=== PATIENT | male | born 1945 | race African-American/Black ===

== ENCOUNTER 2019-01-29 14:24 | Inpatient (IN) | payer MEDICARE ==
[~2019-01-29] VITALS: Ht 180.3 cm; Wt 72.3 kg
[~2019-01-29 14:24] MED LIST: ASPI81TA39 PO; CARV3 PO; FURO40 PO; LISI-660 PO; RISP.5 PO; SIMV-260 PO
[2019-01-29] MEDS ORDERED: FURO20 PO (15:04)
[2019-01-29] MEDS ORDERED: CARV6 PO (15:04)
[2019-01-29] MEDS ORDERED: ASPI-1182 PO (15:04)
[2019-01-29] MEDS ORDERED: RISP.5 PO (15:12)
[2019-01-29 15:27] LABS: GLUCOSE,POINT OF CARE 80 MG/DL (70-110)
[2019-01-29 17:31] LABS: BASOPHILS % (AUTO) 0.5 % (0.0-2.0); EOSINOPHILS % (AUTO) 0 % (1.0-6.0); HEMATOCRIT 45.5 % (41-53); HEMOGLOBIN 15.1 g/dL (13.5-17.5); LYMPHOCYTES # (AUTO) 0.9 K/uL (1.0-4.8); LYMPHOCYTES % (AUTO) 10.1 % (22.0-44.0); MEAN CORPUSCULAR HEMOGLOBIN 30.6 pg (26.0-34.0); MEAN CORPUSCULAR HGB CONC 33.1 G/dL (31.0-37.0); MEAN CORPUSCULAR VOLUME 93 fL (80-100); MONOCYTES # (AUTO) 0.7 K/uL (0.1-1.0); MONOCYTES % (AUTO) 7.7 % (2.0-9.0); NEUTROPHILS # (AUTO) 7.2 K/uL (1.8-7.7); NEUTROPHILS % (AUTO) 81.7 % (40.0-70.0); PLATELET COUNT (AUTO) 182 K/uL (150-450); RED BLOOD CELL COUNT(AUTO) 4.93 MIL/uL (4.50-5.90); RED CELL DISTRIBUTION WIDTH 17.4 % (11.5-14.5)
[2019-01-29 17:39] LABS: INR 1.6 (0.9-1.1); PROTHROMBIN TIME 16.8 SEC (9.4-11.6)
[2019-01-29 17:41] LABS: ANION GAP 9 mmol/L (8-16); CALCIUM, TOTAL 9.6 mg/dL (8.8-10.5); CARBON DIOXIDE 23 mmol/L (22-29); CHLORIDE 110 mmol/L (98-107); CREATININE 0.98 mg/dL (0.60-1.30); GLUCOSE,RANDOM 96 mg/dL (70-110); SODIUM SERUM 142 mmol/L (136-145); UREA NITROGEN, BLOOD 20 mg/dL (7-18)
[2019-01-29 17:42] LABS: GLOMERULAR FILTR. RATE CALC > 60 mL/min (>60)
[2019-01-29 17:48] LABS: TROPONIN I < 0.02 ng/mL (0.00-0.05)
[2019-01-29 17:50] LABS: ALANINE AMINOTRANSFERASE 22 U/L (12-78); ALBUMIN 3.4 g/dL (3.4-5.0); ALKALINE PHOSPHATASE 98 U/L (46-116); ASPARTATE AMINOTRANSFERASE 26 U/L (15-37); BILIRUBIN,TOTAL 1.6 mg/dL (0.1-1.0); CREATINE KINASE, TOTAL ONLY 58 U/L (39-308); TOTAL PROTEIN, SERUM 7.1 g/dL (6.4-8.2)
[2019-01-29 17:53] LABS: B-TYPE NATRIURETIC PEPTIDE 2770 pg/mL (0-100)
[2019-01-29 17:55] LABS: AMMONIA 13 umol/L (11-32)
[2019-01-29 18:02] LABS: APPEARANCE,URINE CLEAR (CLEAR); GLUCOSE, URINE (UA) NEGATIVE (NEGATIVE); KETONES,URINE NEGATIVE (NEGATIVE); LEUKOCYTE ESTERASE ,URINE TRACE (NEGATIVE); NITRATE,URINE NEGATIVE (NEGATIVE); OCCULT BLOOD,URINE SMALL (NEGATIVE); PROTEIN,URINE SEE CONFIRM (NEGATIVE)
[2019-01-29 18:15] LABS: AMPHET/METH SCREEN,URINE NEGATIVE (NEGATIVE); BARBITURATE SCREEN, URINE NEGATIVE (NEGATIVE); BENZODIAZEPINES SCREEN,URINE NEGATIVE (NEGATIVE); CANNABINOID SCREEN,URINE POSITIVE (NEGATIVE); COCAINE SCREEN,URINE NEGATIVE (NEGATIVE); METHADONE SCREEN, URINE NEGATIVE (NEGATIVE); OPIATE SCREEN,URINE NEGATIVE (NEGATIVE)
[2019-01-29] MEDS ORDERED: NITROGLYCERIN 2% (1 GM=INCH) PACKET TP ONE (18:15)
[2019-01-29] MEDS ORDERED: FUROSEMIDE 40 MG/4 ML VIAL IVP ONE (18:15)
[2019-01-29] MEDS ORDERED: ASPIRIN 81 MG CHEWABLE TABLET PO ONE (18:15)
[2019-01-29 18:16] LABS: PHENCYCLIDINE SCREEN,URINE NEGATIVE (NEGATIVE)
[2019-01-29 19:01] LABS: BILIRUBIN,URINE PRELIM. POSITIVE (NEGATIVE)
[2019-01-29 19:02] LABS: SULFOSALICYLIC ACID,URINE 2+ (Negative)
[2019-01-29 19:03] LABS: BACTERIA,URINE Few /HPF (None Seen); RBC,URINE 0-2 /HPF (0-2); WBC,URINE 0-2 /HPF (0-5)
[2019-01-29 19:04] LABS: MUCUS,URINE Many LPF (None Seen); SQUAMOUS EPITHELIAL CELL,UR Few /LPF (None Seen)
[2019-01-29] MEDS ORDERED: 0.9% SODIUM CHLORIDE 10 ML SYRINGE IVP PRN (19:30)
[2019-01-29] MEDS ORDERED: ACETAMINOPHEN 325 MG TABLET PO PRN (19:30)
[2019-01-29 21:03] VITALS: BP 122/72
[2019-01-29] MEDS: IPRATROPIUM BROMIDE 0.5 MG/2.5 ML NEB SOLUTION NEB PRN (21:57)
[2019-01-29] MEDS: ALBUTEROL SULFATE 2.5 MG/0.5 ML NEB SOLUTION NEB PRN (21:57)
[2019-01-30 00:02] VITALS: BP 136/63
[2019-01-30] MEDS ORDERED: MAGNESIUM HYDROXIDE SUSPENSION 30 ML UDCUP PO PRN (02:45)
[2019-01-30] MEDS ORDERED: 0.9% SODIUM CHLORIDE 10 ML SYRINGE IVP PRN (02:45)
[2019-01-30] MEDS ORDERED: ONDANSETRON HCL 4 MG/2 ML VIAL IVP PRN (02:45)
[2019-01-30] MEDS ORDERED: OxyCODONE HCL/ACETAMINOPHEN 5-325 MG TABLET PO PRN ×2 (02:45)
[2019-01-30] MEDS ORDERED: ACETAMINOPHEN 325 MG TABLET PO PRN (02:45)
[2019-01-30 04:54] VITALS: BP 102/51
[2019-01-30 06:47] LABS: BASOPHILS % (AUTO) 0.3 % (0.0-2.0); EOSINOPHILS % (AUTO) 0.1 % (1.0-6.0); HEMATOCRIT 42.9 % (41-53); HEMOGLOBIN 14.2 g/dL (13.5-17.5); LYMPHOCYTES # (AUTO) 1.1 K/uL (1.0-4.8); LYMPHOCYTES % (AUTO) 15.7 % (22.0-44.0); MEAN CORPUSCULAR HEMOGLOBIN 30.9 pg (26.0-34.0); MEAN CORPUSCULAR HGB CONC 33.2 G/dL (31.0-37.0); MEAN CORPUSCULAR VOLUME 93 fL (80-100); MONOCYTES # (AUTO) 0.8 K/uL (0.1-1.0); MONOCYTES % (AUTO) 10.9 % (2.0-9.0); NEUTROPHILS # (AUTO) 5.2 K/uL (1.8-7.7); PLATELET COUNT (AUTO) 168 K/uL (150-450); RED BLOOD CELL COUNT(AUTO) 4.61 MIL/uL (4.50-5.90); RED CELL DISTRIBUTION WIDTH 17.1 % (11.5-14.5)
[2019-01-30 07:35] LABS: B-TYPE NATRIURETIC PEPTIDE 2620 pg/mL (0-100)
[2019-01-30 07:45] VITALS: BP 117/66
[2019-01-30] MEDS: FUROSEMIDE 40 MG/4 ML VIAL IVP SCH (08:34)
[2019-01-30] MEDS: HEPARIN SODIUM,PORCINE 5,000 UNITS/ML VIAL SQ SCH ×2 (08:35→20:38)
[2019-01-30] MEDS: CARVEDILOL 6.25 MG TABLET PO SCH ×2 (08:35→20:38)
[2019-01-30] MEDS: ASPIRIN 81 MG EC TABLET PO SCH (08:36)
[2019-01-30] MEDS: DOCUSATE SODIUM 100 MG CAPSULE PO SCH ×2 (08:36→20:38)
[2019-01-30] MEDS: RisperiDONE 0.5 MG TABLET PO SCH (08:46)
[2019-01-30] MEDS: IPRATROPIUM BROMIDE 0.5 MG/2.5 ML NEB SOLUTION NEB PRN ×3 (09:12→20:21)
[2019-01-30] MEDS: ALBUTEROL SULFATE 2.5 MG/0.5 ML NEB SOLUTION NEB PRN ×3 (09:12→20:21)
[2019-01-30 10:08] LABS: ALANINE AMINOTRANSFERASE 19 U/L (12-78); ALBUMIN 3.1 g/dL (3.4-5.0); ALKALINE PHOSPHATASE 88 U/L (46-116); ANION GAP 18 mmol/L (8-16); ASPARTATE AMINOTRANSFERASE 25 U/L (15-37); BILIRUBIN,TOTAL 1.3 mg/dL (0.1-1.0); CALCIUM, TOTAL 9.2 mg/dL (8.8-10.5); CARBON DIOXIDE 20 mmol/L (22-29); CHLORIDE 107 mmol/L (98-107); CREATININE 1.04 mg/dL (0.60-1.30); GLUCOSE,RANDOM 105 mg/dL (70-110); PHOSPHORUS 4.4 mg/dL (2.5-4.9); POTASSIUM 4.4 mmol/L (3.5-5.1); SODIUM SERUM 145 mmol/L (136-145); TOTAL PROTEIN, SERUM 6.6 g/dL (6.4-8.2); UREA NITROGEN, BLOOD 21 mg/dL (7-18)
[2019-01-30 10:10] LABS: GLOMERULAR FILTR. RATE CALC > 60 mL/min (>60)
[2019-01-30] MEDS ORDERED: GuaiFENesin/D-METHORPHAN [SUGAR-FREE] 200-20MG/10 ML SYRUP UDCUP PO PRN (14:45)
[2019-01-30 15:54] VITALS: BP 120/71
[2019-01-30 19:41] VITALS: BP 115/88
[2019-01-30 23:24] VITALS: BP 110/56
[2019-01-31 05:11] VITALS: BP 107/60
[2019-01-31 06:32] LABS: BASOPHILS % (AUTO) 0.6 % (0.0-2.0); EOSINOPHILS % (AUTO) 0.5 % (1.0-6.0); HEMATOCRIT 39.2 % (41-53); LYMPHOCYTES # (AUTO) 1.1 K/uL (1.0-4.8); LYMPHOCYTES % (AUTO) 22.2 % (22.0-44.0); MEAN CORPUSCULAR HEMOGLOBIN 30.8 pg (26.0-34.0); MEAN CORPUSCULAR HGB CONC 33.1 G/dL (31.0-37.0); MEAN CORPUSCULAR VOLUME 93 fL (80-100); MONOCYTES # (AUTO) 0.6 K/uL (0.1-1.0); MONOCYTES % (AUTO) 13.1 % (2.0-9.0); NEUTROPHILS % (AUTO) 63.6 % (40.0-70.0); PLATELET COUNT (AUTO) 176 K/uL (150-450); RED BLOOD CELL COUNT(AUTO) 4.22 MIL/uL (4.50-5.90)
[2019-01-31 06:44] LABS: ANION GAP 3 mmol/L (8-16); CALCIUM, TOTAL 8.3 mg/dL (8.8-10.5); CARBON DIOXIDE 29 mmol/L (22-29); CHLORIDE 107 mmol/L (98-107); CREATININE 1.04 mg/dL (0.60-1.30); GLUCOSE,RANDOM 83 mg/dL (70-110); POTASSIUM 4.1 mmol/L (3.5-5.1); SODIUM SERUM 139 mmol/L (136-145); UREA NITROGEN, BLOOD 21 mg/dL (7-18)
[2019-01-31 06:45] LABS: GLOMERULAR FILTR. RATE CALC > 60 mL/min (>60)
[2019-01-31 07:53] VITALS: BP 93/66
[2019-01-31] MEDS: FUROSEMIDE 40 MG/4 ML VIAL IVP SCH (08:18)
[2019-01-31] MEDS: HEPARIN SODIUM,PORCINE 5,000 UNITS/ML VIAL SQ SCH ×2 (08:18→20:48)
[2019-01-31] MEDS: RisperiDONE 0.5 MG TABLET PO SCH (08:19)
[2019-01-31] MEDS: CARVEDILOL 6.25 MG TABLET PO SCH ×2 (08:19→20:48)
[2019-01-31] MEDS: ASPIRIN 81 MG EC TABLET PO SCH (08:19)
[2019-01-31] MEDS: DOCUSATE SODIUM 100 MG CAPSULE PO SCH ×2 (08:19→20:48)
[2019-01-31] MEDS: NICOTINE 14 MG/24 HOUR PATCH TD SCH (08:20)
[2019-01-31 12:01] VITALS: BP 116/73
[2019-01-31 14:05] LABS: ABG A-A DIFF O2 37.1 mmHg (10-20.0); ABG BASE EXCESS 6.5 mmol/L (-2.0-3.0); ABG CARBOXYHEMOGLOBIN 0.9 % (0.0-1.5); ABG HCO3 29.2 mmol/L (22.0-26.0); ABG METHEMOGLOBIN 0.3 % (0.0-1.5); ABG OXYGEN CONTENT 18.2 mL/dL (15.0-23.0); ABG OXYGEN SATURATION 97.9 % (95.0-98.0); ABG OXYHEMOGLOBIN 96.7 % (94.0-100.0); ABG PCO2 53 mmHg (35-45); ABG PH 7.391 (7.35-7.450); ABG TOTAL HEMOGLOBIN 13.3 G/dL (12.0-18.0); PO2, ARTERIAL BG 100.2 mmHg (75.0-83.0); SOURCE, BLOOD GAS ARTERIAL; TEMPERATURE, FAHRENHEIT, BG 97.9 FAHREN (96.0-98.6)
[2019-01-31 14:07] LABS: O2 DEVICE,BLOOD GAS CANNULA (ROOM AIR); SITE, BLOOD GAS LFT RADIAL
[2019-01-31 15:12] VITALS: BP 122/72
[2019-01-31] MEDS: LOSARTAN POTASSIUM 25 MG TABLET PO SCH ×2 (15:48→20:48)
[2019-01-31 20:29] VITALS: BP 107/65
[2019-01-31 23:37] VITALS: BP 115/63
[2019-02-01 04:28] VITALS: BP 105/59
[2019-02-01 06:17] LABS: BASOPHILS % (AUTO) 0.7 % (0.0-2.0); EOSINOPHILS % (AUTO) 0.8 % (1.0-6.0); HEMATOCRIT 37.8 % (41-53); HEMOGLOBIN 12.1 g/dL (13.5-17.5); LYMPHOCYTES # (AUTO) 0.9 K/uL (1.0-4.8); LYMPHOCYTES % (AUTO) 25.7 % (22.0-44.0); MEAN CORPUSCULAR HGB CONC 32.1 G/dL (31.0-37.0); MEAN CORPUSCULAR VOLUME 93 fL (80-100); MONOCYTES # (AUTO) 0.6 K/uL (0.1-1.0); MONOCYTES % (AUTO) 16.2 % (2.0-9.0); NEUTROPHILS % (AUTO) 56.6 % (40.0-70.0); PLATELET COUNT (AUTO) 187 K/uL (150-450); RED BLOOD CELL COUNT(AUTO) 4.05 MIL/uL (4.50-5.90); RED CELL DISTRIBUTION WIDTH 16.7 % (11.5-14.5)
[2019-02-01 06:43] LABS: ALANINE AMINOTRANSFERASE 27 U/L (12-78); ALBUMIN 2.7 g/dL (3.4-5.0); ALKALINE PHOSPHATASE 85 U/L (46-116); ANION GAP 5 mmol/L (8-16); ASPARTATE AMINOTRANSFERASE 23 U/L (15-37); BILIRUBIN,TOTAL 0.6 mg/dL (0.1-1.0); CALCIUM, TOTAL 8.3 mg/dL (8.8-10.5); CARBON DIOXIDE 31 mmol/L (22-29); CHLORIDE 105 mmol/L (98-107); CREATININE 0.77 mg/dL (0.60-1.30); GLUCOSE,RANDOM 71 mg/dL (70-110); POTASSIUM 4.5 mmol/L (3.5-5.1); SODIUM SERUM 141 mmol/L (136-145); TOTAL PROTEIN, SERUM 5.7 g/dL (6.4-8.2); UREA NITROGEN, BLOOD 19 mg/dL (7-18)
[2019-02-01 06:44] LABS: GLOMERULAR FILTR. RATE CALC > 60 mL/min (>60)
[2019-02-01 07:45] VITALS: BP 114/74
[2019-02-01] MEDS: CARVEDILOL 6.25 MG TABLET PO SCH ×2 (09:00→20:09)
[2019-02-01] MEDS: LOSARTAN POTASSIUM 25 MG TABLET PO SCH ×2 (09:00→20:09)
[2019-02-01] MEDS: NICOTINE 14 MG/24 HOUR PATCH TD SCH (09:19)
[2019-02-01] MEDS: FUROSEMIDE 40 MG/4 ML VIAL IVP SCH ×2 (09:19→20:09)
[2019-02-01] MEDS: HEPARIN SODIUM,PORCINE 5,000 UNITS/ML VIAL SQ SCH ×2 (09:20→20:09)
[2019-02-01] MEDS: ASPIRIN 81 MG EC TABLET PO SCH (09:20)
[2019-02-01] MEDS: DOCUSATE SODIUM 100 MG CAPSULE PO SCH ×2 (09:20→20:09)
[2019-02-01 11:16] VITALS: BP 123/71
[2019-02-01 16:06] VITALS: BP 124/54
[2019-02-01 20:13] VITALS: BP 122/79
[2019-02-01 23:05] VITALS: BP 115/61
[2019-02-02 03:21] VITALS: BP 118/64
[2019-02-02 07:11] LABS: EOSINOPHILS % (AUTO) 0.9 % (1.0-6.0); HEMATOCRIT 38.4 % (41-53); HEMOGLOBIN 12.8 g/dL (13.5-17.5); LYMPHOCYTES # (AUTO) 0.8 K/uL (1.0-4.8); LYMPHOCYTES % (AUTO) 20.7 % (22.0-44.0); MEAN CORPUSCULAR HEMOGLOBIN 30.9 pg (26.0-34.0); MEAN CORPUSCULAR HGB CONC 33.4 G/dL (31.0-37.0); MEAN CORPUSCULAR VOLUME 93 fL (80-100); MONOCYTES # (AUTO) 0.6 K/uL (0.1-1.0); MONOCYTES % (AUTO) 15.8 % (2.0-9.0); NEUTROPHILS # (AUTO) 2.4 K/uL (1.8-7.7); NEUTROPHILS % (AUTO) 61.6 % (40.0-70.0); PLATELET COUNT (AUTO) 197 K/uL (150-450); RED BLOOD CELL COUNT(AUTO) 4.14 MIL/uL (4.50-5.90); RED CELL DISTRIBUTION WIDTH 16.7 % (11.5-14.5)
[2019-02-02 07:29] VITALS: BP 122/66
[2019-02-02 07:37] LABS: ALANINE AMINOTRANSFERASE 21 U/L (12-78); ALBUMIN 2.8 g/dL (3.4-5.0); ALKALINE PHOSPHATASE 87 U/L (46-116); ANION GAP 3 mmol/L (8-16); ASPARTATE AMINOTRANSFERASE 23 U/L (15-37); BILIRUBIN,TOTAL 0.6 mg/dL (0.1-1.0); CALCIUM, TOTAL 8.2 mg/dL (8.8-10.5); CARBON DIOXIDE 36 mmol/L (22-29); CHLORIDE 103 mmol/L (98-107); CREATININE 0.98 mg/dL (0.60-1.30); GLUCOSE,RANDOM 64 mg/dL (70-110); SODIUM SERUM 142 mmol/L (136-145); TOTAL PROTEIN, SERUM 6.2 g/dL (6.4-8.2); UREA NITROGEN, BLOOD 20 mg/dL (7-18)
[2019-02-02 07:43] LABS: GLOMERULAR FILTR. RATE CALC > 60 mL/min (>60)
[2019-02-02] MEDS: FUROSEMIDE 40 MG/4 ML VIAL IVP SCH (08:28)
[2019-02-02] MEDS: LOSARTAN POTASSIUM 25 MG TABLET PO SCH (08:29)
[2019-02-02] MEDS: CARVEDILOL 6.25 MG TABLET PO SCH ×2 (08:29→20:15)
[2019-02-02] MEDS: HEPARIN SODIUM,PORCINE 5,000 UNITS/ML VIAL SQ SCH ×2 (08:29→20:15)
[2019-02-02] MEDS: DOCUSATE SODIUM 100 MG CAPSULE PO SCH ×2 (08:29→20:15)
[2019-02-02] MEDS: ASPIRIN 81 MG EC TABLET PO SCH (08:29)
[2019-02-02] MEDS: NICOTINE 14 MG/24 HOUR PATCH TD SCH (08:31)
[2019-02-02 10:54] VITALS: BP 124/78
[2019-02-02 15:19] VITALS: BP 128/66
[2019-02-02] MEDS: SACUBITRIL/VALSARTAN 24-26 MG TABLET PO SCH (20:15)
[2019-02-02 20:19] VITALS: BP 118/68
[2019-02-03 00:21] VITALS: BP 118/67
[2019-02-03 05:21] VITALS: BP 105/69
[2019-02-03 07:26] LABS: BASOPHILS % (AUTO) 0.3 % (0.0-2.0); EOSINOPHILS % (AUTO) 1.2 % (1.0-6.0); HEMATOCRIT 40.5 % (41-53); HEMOGLOBIN 13.7 g/dL (13.5-17.5); LYMPHOCYTES % (AUTO) 27.2 % (22.0-44.0); MEAN CORPUSCULAR HEMOGLOBIN 30.8 pg (26.0-34.0); MEAN CORPUSCULAR HGB CONC 33.7 G/dL (31.0-37.0); MEAN CORPUSCULAR VOLUME 92 fL (80-100); MONOCYTES # (AUTO) 0.6 K/uL (0.1-1.0); MONOCYTES % (AUTO) 16.1 % (2.0-9.0); NEUTROPHILS # (AUTO) 2.1 K/uL (1.8-7.7); NEUTROPHILS % (AUTO) 55.2 % (40.0-70.0); PLATELET COUNT (AUTO) 226 K/uL (150-450); RED BLOOD CELL COUNT(AUTO) 4.43 MIL/uL (4.50-5.90); RED CELL DISTRIBUTION WIDTH 16.6 % (11.5-14.5)
[2019-02-03 07:49] LABS: ALANINE AMINOTRANSFERASE 19 U/L (12-78); ALBUMIN 2.6 g/dL (3.4-5.0); ALKALINE PHOSPHATASE 89 U/L (46-116); ANION GAP 4 mmol/L (8-16); ASPARTATE AMINOTRANSFERASE 24 U/L (15-37); BILIRUBIN,TOTAL 0.9 mg/dL (0.1-1.0); CALCIUM, TOTAL 8.3 mg/dL (8.8-10.5); CARBON DIOXIDE 34 mmol/L (22-29); CHLORIDE 103 mmol/L (98-107); CREATININE 0.78 mg/dL (0.60-1.30); GLUCOSE,RANDOM 74 mg/dL (70-110); POTASSIUM 4.3 mmol/L (3.5-5.1); SODIUM SERUM 141 mmol/L (136-145); TOTAL PROTEIN, SERUM 5.6 g/dL (6.4-8.2); UREA NITROGEN, BLOOD 23 mg/dL (7-18)
[2019-02-03 07:53] LABS: GLOMERULAR FILTR. RATE CALC > 60 mL/min (>60)
[2019-02-03 08:04] VITALS: BP 116/67
[2019-02-03] MEDS: NICOTINE 14 MG/24 HOUR PATCH TD SCH (08:09)
[2019-02-03] MEDS: HEPARIN SODIUM,PORCINE 5,000 UNITS/ML VIAL SQ SCH (08:09)
[2019-02-03] MEDS: SACUBITRIL/VALSARTAN 24-26 MG TABLET PO SCH (08:10)
[2019-02-03] MEDS: CARVEDILOL 6.25 MG TABLET PO SCH (08:10)
[2019-02-03] MEDS: ASPIRIN 81 MG EC TABLET PO SCH (08:10)
[2019-02-03] MEDS: DOCUSATE SODIUM 100 MG CAPSULE PO SCH (08:10)
[2019-02-03] MEDS ORDERED: FUROSEMIDE 40 MG/4 ML VIAL IVP SCH (09:00)
[2019-02-03 11:36] VITALS: BP 107/63
[2019-02-03] MEDS ORDERED: SACU1TAB PO (13:15)
== END 2019-02-03 14:50 | disposition home or self-care (01) | DRG 291 ==
LOC: EMS 14:26 → 5S 19:30
PROVIDERS: ADMIT Internal Medicine; ATTEND Internal Medicine
PROC: 4B02XSZ Measurement of Cardiac Pacemaker, External Approach (ICD-10-PCS; principal; 2019-02-01)
DX: I50.21 Acute systolic (congestive) heart failure (principal); J96.01 Acute respiratory failure with hypoxia; G92 Toxic encephalopathy; I42.9 Cardiomyopathy, unspecified; Z95.0 Presence of cardiac pacemaker; F12.90 Cannabis use, unspecified, uncomplicated
CPT/HCPCS: 70450; 82805; 83605; 83735; 84100; 87040; 87081; 93005; 93306; 94640; G0480; J1644; J1940; J2405

== ENCOUNTER 2019-09-29 00:27 | Emergency (ER) | payer MEDICARE ==
[~2019-09-29] VITALS: Ht 180.3 cm; Wt 65.9 kg
[~2019-09-29 00:27] MED LIST changes: +ASPI-1111 PO; +CARV6 PO; +FURO20 PO; -RISP.5 PO; +RISP0.5T20 PO; +SACU1TAB PO
[2019-09-29 01:20] LABS: BASOPHILS % (AUTO) 1.3 % (0.0-2.0); EOSINOPHILS % (AUTO) 0.9 % (1.0-6.0); HEMATOCRIT 40.3 % (41-53); HEMOGLOBIN 13.5 g/dL (13.5-17.5); LYMPHOCYTES # (AUTO) 1.4 K/uL (1.0-4.8); LYMPHOCYTES % (AUTO) 20.9 % (22.0-44.0); MEAN CORPUSCULAR HEMOGLOBIN 30.5 pg (26.0-34.0); MEAN CORPUSCULAR HGB CONC 33.4 G/dL (31.0-37.0); MEAN CORPUSCULAR VOLUME 91 fL (80-100); MONOCYTES # (AUTO) 0.7 K/uL (0.1-1.0); MONOCYTES % (AUTO) 9.7 % (2.0-9.0); NEUTROPHILS # (AUTO) 4.6 K/uL (1.8-7.7); NEUTROPHILS % (AUTO) 67.2 % (40.0-70.0); PLATELET COUNT (AUTO) 249 K/uL (150-450); RED BLOOD CELL COUNT(AUTO) 4.42 MIL/uL (4.50-5.90); RED CELL DISTRIBUTION WIDTH 13.8 % (11.5-14.5)
[2019-09-29 01:29] LABS: ANION GAP 7 mmol/L (8-16); CALCIUM, TOTAL 9.6 mg/dL (8.8-10.5); CARBON DIOXIDE 29 mmol/L (22-29); CHLORIDE 100 mmol/L (98-107); CREATININE 1.03 mg/dL (0.60-1.30); GLUCOSE,RANDOM 85 mg/dL (70-110); POTASSIUM 3.3 mmol/L (3.5-5.1); SODIUM SERUM 136 mmol/L (136-145); UREA NITROGEN, BLOOD 11 mg/dL (7-18)
[2019-09-29 01:33] LABS: GLOMERULAR FILTR. RATE CALC > 60 mL/min (>60)
[2019-09-29 01:35] LABS: INR 1.3 (0.9-1.1); PROTHROMBIN TIME 13.3 SEC (9.4-11.6)
[2019-09-29 01:42] LABS: B-TYPE NATRIURETIC PEPTIDE 61 pg/mL (0-100)
[2019-09-29 01:54] LABS: ALANINE AMINOTRANSFERASE 20 U/L (12-78); ALBUMIN 3.9 g/dL (3.4-5.0); ALKALINE PHOSPHATASE 93 U/L (46-116); ASPARTATE AMINOTRANSFERASE 23 U/L (15-37); BILIRUBIN,TOTAL 0.8 mg/dL (0.1-1.0); CREATINE KINASE, TOTAL ONLY 147 U/L (39-308)
[2019-09-29] MEDS ORDERED: POTASSIUM CHLORIDE 20 MEQ ER TABLET PO ONE (02:30)
[2019-09-29 03:13] VITALS: BP 125/86
== END 2019-09-29 04:53 | disposition home or self-care (01) ==
LOC: EMS 00:28
DX: R05 Cough (principal); R50.9 Fever, unspecified; R19.7 Diarrhea, unspecified; I50.9 Heart failure, unspecified; Z79.82 Long term (current) use of aspirin; Z79.899 Other long term (current) drug therapy; Z20.828 Contact with and (suspected) exposure to other viral communicable diseases
CPT/HCPCS: 36415; 71045; 80053; 82550; 83880; 84484; 85025; 85610; 85730; 93005; 99285; G0480; U0003

== ENCOUNTER 2019-11-06 11:42 | Emergency (ER) | payer MEDICARE ==
[~2019-11-06] VITALS: Ht 175.3 cm; Wt 72.7 kg
[2019-11-06 14:39] LABS: BASOPHILS % (AUTO) 0.7 % (0.0-2.0); EOSINOPHILS % (AUTO) 0.5 % (1.0-6.0); HEMATOCRIT 42.6 % (41-53); HEMOGLOBIN 14.2 g/dL (13.5-17.5); LYMPHOCYTES # (AUTO) 1.3 K/uL (1.0-4.8); LYMPHOCYTES % (AUTO) 21.9 % (22.0-44.0); MEAN CORPUSCULAR HEMOGLOBIN 30.2 pg (26.0-34.0); MEAN CORPUSCULAR HGB CONC 33.4 G/dL (31.0-37.0); MEAN CORPUSCULAR VOLUME 90 fL (80-100); MONOCYTES # (AUTO) 0.5 K/uL (0.1-1.0); MONOCYTES % (AUTO) 7.9 % (2.0-9.0); NEUTROPHILS # (AUTO) 4.1 K/uL (1.8-7.7); PLATELET COUNT (AUTO) 222 K/uL (150-450); RED BLOOD CELL COUNT(AUTO) 4.71 MIL/uL (4.50-5.90); RED CELL DISTRIBUTION WIDTH 14.5 % (11.5-14.5)
[2019-11-06 14:49] LABS: ANION GAP 7 mmol/L (8-16); CALCIUM, TOTAL 9.6 mg/dL (8.8-10.5); CARBON DIOXIDE 30 mmol/L (22-29); CHLORIDE 100 mmol/L (98-107); CREATININE 1.28 mg/dL (0.60-1.30); GLUCOSE,RANDOM 124 mg/dL (70-110); POTASSIUM 4.1 mmol/L (3.5-5.1); SODIUM SERUM 137 mmol/L (136-145); UREA NITROGEN, BLOOD 27 mg/dL (7-18)
[2019-11-06 14:50] LABS: GLOMERULAR FILTR. RATE CALC > 60 mL/min (>60)
[2019-11-06 14:55] LABS: ALANINE AMINOTRANSFERASE 32 U/L (12-78); ALKALINE PHOSPHATASE 98 U/L (46-116); ASPARTATE AMINOTRANSFERASE 44 U/L (15-37); BILIRUBIN,TOTAL 0.8 mg/dL (0.1-1.0); TOTAL PROTEIN, SERUM 8.8 g/dL (6.4-8.2)
[2019-11-06 16:41] VITALS: BP 131/68
== END 2019-11-06 20:56 | disposition home or self-care (01) ==
LOC: EMS 11:45
DX: F25.9 Schizoaffective disorder, unspecified (principal); F17.210 Nicotine dependence, cigarettes, uncomplicated; I11.0 Hypertensive heart disease with heart failure; F12.90 Cannabis use, unspecified, uncomplicated; I50.9 Heart failure, unspecified; Z79.82 Long term (current) use of aspirin; Z79.899 Other long term (current) drug therapy
CPT/HCPCS: 36415; 71045; 80053; 85025; 93005; 99285; G0480

== ENCOUNTER 2020-03-01 01:25 | Emergency (ER) | payer MEDICARE ==
[~2020-03-01] VITALS: Ht 175.3 cm; Wt 59.1 kg
[~2020-03-01 01:25] MED LIST changes: -RISP0.5T20 PO; +RISP0.5T39 PO
[2020-03-01 04:28] VITALS: BP 131/72
[2020-03-01] MEDS ORDERED: FLUORESCEIN SODIUM 1 MG STRIP OD ONE (04:45)
[2020-03-01] MEDS ORDERED: PROPARACAINE HCL 0.5% 15 ML OPHTHALMIC SOLUTION OU ONE (04:45)
== END 2020-03-01 06:32 | disposition home or self-care (01) ==
LOC: EMS 01:28
DX: S05.92XA Unspecified injury of left eye and orbit, initial encounter (principal); S05.91XA Unspecified injury of right eye and orbit, initial encounter; F17.210 Nicotine dependence, cigarettes, uncomplicated; F12.90 Cannabis use, unspecified, uncomplicated; I50.9 Heart failure, unspecified; F41.9 Anxiety disorder, unspecified; X58.XXXA Exposure to other specified factors, initial encounter; Y93.89 Activity, other specified; Y92.89 Other specified places as the place of occurrence of the external cause; Y99.8 Other external cause status

== ENCOUNTER 2020-10-06 19:23 | Emergency (ER) | payer MEDICARE ==
[~2020-10-06] VITALS: Ht 180.3 cm; Wt 65.9 kg
[2020-10-06] MEDS ORDERED: LevETIRAcetam 500 MG TABLET PO ONE (22:45)
[2020-10-06 23:04] VITALS: BP 134/72
== END 2020-10-06 23:27 | disposition home or self-care (01) ==
LOC: EDUNIT# 19:23 → EMS 19:25
DX: G40.909 Epilepsy, unspecified, not intractable, without status epilepticus (principal); I50.9 Heart failure, unspecified; F41.9 Anxiety disorder, unspecified; F17.210 Nicotine dependence, cigarettes, uncomplicated; F12.90 Cannabis use, unspecified, uncomplicated
CPT/HCPCS: 99283

== ENCOUNTER 2020-10-09 17:44 | Emergency (ER) | payer MEDICARE ==
[~2020-10-09] VITALS: Ht 180.3 cm; Wt 65.9 kg
[2020-10-09] MEDS ORDERED: LevETIRAcetam 500 MG TABLET PO ONE (19:15)
[2020-10-09 19:19] LABS: BASOPHILS % (AUTO) 1.4 % (0.0-2.0); EOSINOPHILS % (AUTO) 2.9 % (1.0-6.0); HEMATOCRIT 37.4 % (41-53); HEMOGLOBIN 12.2 g/dL (13.5-17.5); LYMPHOCYTES # (AUTO) 1.5 K/uL (1.0-4.8); LYMPHOCYTES % (AUTO) 35.2 % (22.0-44.0); MEAN CORPUSCULAR HEMOGLOBIN 29.3 pg (26.0-34.0); MEAN CORPUSCULAR HGB CONC 32.6 G/dL (31.0-37.0); MEAN CORPUSCULAR VOLUME 90 fL (80-100); MONOCYTES # (AUTO) 0.5 K/uL (0.1-1.0); MONOCYTES % (AUTO) 12.7 % (2.0-9.0); NEUTROPHILS % (AUTO) 47.8 % (40.0-70.0); PLATELET COUNT (AUTO) 199 K/uL (150-450); RED BLOOD CELL COUNT(AUTO) 4.16 MIL/uL (4.50-5.90); RED CELL DISTRIBUTION WIDTH 16.1 % (11.5-14.5)
[2020-10-09 19:39] LABS: ANION GAP 7 mmol/L (8-16); CALCIUM, TOTAL 9.2 mg/dL (8.8-10.5); CARBON DIOXIDE 32 mmol/L (22-29); CHLORIDE 104 mmol/L (98-107); CREATININE 1.35 mg/dL (0.60-1.30); GLUCOSE,RANDOM 110 mg/dL (70-110); POTASSIUM 3.7 mmol/L (3.5-5.1); SODIUM SERUM 143 mmol/L (136-145); UREA NITROGEN, BLOOD 22 mg/dL (7-18)
[2020-10-09 19:45] LABS: GLOMERULAR FILTR. RATE CALC > 60 mL/min (>60)
[2020-10-09 19:54] LABS: ALANINE AMINOTRANSFERASE 18 U/L (12-78); ALBUMIN 3.6 g/dL (3.4-5.0); ALKALINE PHOSPHATASE 73 U/L (46-116); ASPARTATE AMINOTRANSFERASE 20 U/L (15-37); BILIRUBIN,TOTAL 0.3 mg/dL (0.1-1.0); TOTAL PROTEIN, SERUM 7.1 g/dL (6.4-8.2)
[2020-10-09 22:36] VITALS: BP 101/53
== END 2020-10-09 22:37 | disposition home or self-care (01) ==
LOC: EMS 17:46
DX: G40.909 Epilepsy, unspecified, not intractable, without status epilepticus (principal); I50.9 Heart failure, unspecified; F41.9 Anxiety disorder, unspecified; G89.29 Other chronic pain; F12.90 Cannabis use, unspecified, uncomplicated; F17.210 Nicotine dependence, cigarettes, uncomplicated; Z59.0 Homelessness; Z95.0 Presence of cardiac pacemaker
CPT/HCPCS: 36415; 70450; 80053; 85025; 99284; G0480

== ENCOUNTER 2021-02-26 12:01 | Inpatient (IN) | payer MEDICARE ==
[~2021-02-26] VITALS: Ht 180.3 cm; Wt 76.9 kg
[2021-02-26] MEDS ORDERED: CHOL-35 PO (12:17)
[2021-02-26] MEDS ORDERED: FURO80 PO (12:17)
[2021-02-26] MEDS ORDERED: CARV25 PO (12:17)
[2021-02-26] MEDS ORDERED: ATOR40TA28 PO (12:17)
[2021-02-26] MEDS ORDERED: ASPI-1450 PO (12:17)
[2021-02-26 13:17] LABS: BASOPHILS % (AUTO) 0.9 % (0.0-2.0); HEMATOCRIT 39.9 % (41-53); HEMOGLOBIN 12.7 g/dL (13.5-17.5); LYMPHOCYTES % (AUTO) 15.6 % (22.0-44.0); MEAN CORPUSCULAR HEMOGLOBIN 28.9 pg (26.0-34.0); MEAN CORPUSCULAR HGB CONC 31.7 G/dL (31.0-37.0); MEAN CORPUSCULAR VOLUME 91 fL (80-100); MONOCYTES # (AUTO) 0.7 K/uL (0.1-1.0); MONOCYTES % (AUTO) 9.9 % (2.0-9.0); NEUTROPHILS # (AUTO) 4.9 K/uL (1.8-7.7); NEUTROPHILS % (AUTO) 72.6 % (40.0-70.0); PLATELET COUNT (AUTO) 245 K/uL (150-450); RED BLOOD CELL COUNT(AUTO) 4.38 MIL/uL (4.50-5.90); RED CELL DISTRIBUTION WIDTH 15.5 % (11.5-14.5)
[2021-02-26 13:35] LABS: COVID AG,FIA SOURCE NASOPHARYNGEAL
[2021-02-26 13:59] LABS: INFLUENZA TYPE A NEGATIVE FOR TYPE A (NEGATIVE); INFLUENZA TYPE B NEGATIVE FOR TYPE B (NEGATIVE)
[2021-02-26] MEDS ORDERED: MAG HYDROX/AL HYDROX/SIMETH 30 ML SUSP UDCUP PO ONE (14:00)
[2021-02-26] MEDS ORDERED: ACETAMINOPHEN 500 MG TABLET PO ONE (14:00)
[2021-02-26] MEDS ORDERED: FAMOTIDINE 10 MG/ML 2 ML VIAL IVP ONE (14:00)
[2021-02-26 14:12] LABS: ANION GAP 8 mmol/L (8-16); CALCIUM, TOTAL 9.3 mg/dL (8.8-10.5); CARBON DIOXIDE 28 mmol/L (22-29); CHLORIDE 107 mmol/L (98-107); GLUCOSE,RANDOM 84 mg/dL (70-110); POTASSIUM 4.2 mmol/L (3.5-5.1); SODIUM SERUM 143 mmol/L (136-145); UREA NITROGEN, BLOOD 9 mg/dL (7-18)
[2021-02-26 14:14] LABS: GLOMERULAR FILTR. RATE CALC > 60 mL/min (>60)
[2021-02-26] MEDS ORDERED: PIPERACILLIN/TAZO 3.375 GM/D5W 50 ML IV ONE (14:15)
[2021-02-26] MEDS ORDERED: VANCOMYCIN HCL 1 GM/D5% WATER 200 ML IV ONE (14:15)
[2021-02-26] MEDS ORDERED: AZITHROMYCIN 500 MG/NS 250 ML IV ONE (14:15)
[2021-02-26 14:18] LABS: ALANINE AMINOTRANSFERASE 17 U/L (12-78); ALBUMIN 3.1 g/dL (3.4-5.0); ALKALINE PHOSPHATASE 76 U/L (46-116); ASPARTATE AMINOTRANSFERASE 23 U/L (15-37); BILIRUBIN,TOTAL 0.4 mg/dL (0.1-1.0); TOTAL PROTEIN, SERUM 6.9 g/dL (6.4-8.2)
[2021-02-26 14:20] LABS: LACTIC ACID 0.8 mmol/L (0.4-2.0)
[2021-02-26] MEDS ORDERED: IOHEXOL 350 MG/ML 150 ML VIAL ONE (14:26)
[2021-02-26] MEDS ORDERED: SODIUM CHLORIDE 0.9% 100 ML ONE (14:26)
[2021-02-26 14:29] LABS: C-REACTIVE PROTEIN QUANT 1.42 mg/dL (0.00-0.30); MAGNESIUM 1.9 mg/dL (1.80-2.40); PHOSPHORUS 3.1 mg/dL (2.5-4.9)
[2021-02-26] MEDS ORDERED: ACETAMINOPHEN 325 MG TABLET PO PRN (16:15)
[2021-02-26] MEDS ORDERED: 0.9% SODIUM CHLORIDE 10 ML SYRINGE IVP PRN (16:15)
[2021-02-26] MEDS ORDERED: ONDANSETRON HCL 4 MG/2 ML VIAL IVP PRN (16:15)
[2021-02-26 17:27] VITALS: BP 116/63
[2021-02-26 19:15] VITALS: BP 127/76
[2021-02-26] MEDS: KETOROLAC TROMETHAMINE 15 MG/ML VIAL IVP PRN (22:09)
[2021-02-26 23:45] VITALS: BP 124/64
[2021-02-27 03:40] VITALS: BP 113/60
[2021-02-27] MEDS: KETOROLAC TROMETHAMINE 15 MG/ML VIAL IVP PRN ×2 (05:36→14:41)
[2021-02-27 06:54] LABS: BASOPHILS % (AUTO) 0.8 % (0.0-2.0); EOSINOPHILS % (AUTO) 3.2 % (1.0-6.0); HEMATOCRIT 36.5 % (41-53); LYMPHOCYTES # (AUTO) 1.5 K/uL (1.0-4.8); LYMPHOCYTES % (AUTO) 26.9 % (22.0-44.0); MEAN CORPUSCULAR HEMOGLOBIN 29.5 pg (26.0-34.0); MEAN CORPUSCULAR VOLUME 90 fL (80-100); MONOCYTES # (AUTO) 0.7 K/uL (0.1-1.0); MONOCYTES % (AUTO) 12.2 % (2.0-9.0); NEUTROPHILS # (AUTO) 3.1 K/uL (1.8-7.7); NEUTROPHILS % (AUTO) 56.9 % (40.0-70.0); PLATELET COUNT (AUTO) 254 K/uL (150-450); RED BLOOD CELL COUNT(AUTO) 4.07 MIL/uL (4.50-5.90); RED CELL DISTRIBUTION WIDTH 14.7 % (11.5-14.5)
[2021-02-27 07:11] LABS: ALANINE AMINOTRANSFERASE 14 U/L (12-78); ALBUMIN 2.8 g/dL (3.4-5.0); ALKALINE PHOSPHATASE 68 U/L (46-116); ANION GAP 5 mmol/L (8-16); ASPARTATE AMINOTRANSFERASE 18 U/L (15-37); BILIRUBIN,TOTAL 0.4 mg/dL (0.1-1.0); CALCIUM, TOTAL 8.8 mg/dL (8.8-10.5); CARBON DIOXIDE 29 mmol/L (22-29); CHLORIDE 107 mmol/L (98-107); CREATININE 0.97 mg/dL (0.60-1.30); GLUCOSE,RANDOM 77 mg/dL (70-110); POTASSIUM 4.3 mmol/L (3.5-5.1); SODIUM SERUM 141 mmol/L (136-145); TOTAL PROTEIN, SERUM 6.6 g/dL (6.4-8.2); UREA NITROGEN, BLOOD 15 mg/dL (7-18)
[2021-02-27 07:12] LABS: GLOMERULAR FILTR. RATE CALC > 60 mL/min (>60)
[2021-02-27 08:22] VITALS: BP 123/66
[2021-02-27] MEDS ORDERED: CARVEDILOL 25 MG TABLET PO SCH (09:45)
[2021-02-27] MEDS: NICOTINE 21 MG/24 HOUR PATCH TD SCH (09:54)
[2021-02-27] MEDS: CHOLECALCIFEROL (VIT D3) 1,000 UNITS [25 MCG] TABLET PO SCH (09:56)
[2021-02-27] MEDS: ASPIRIN 81 MG CHEWABLE TABLET PO SCH (10:12)
[2021-02-27 11:10] VITALS: BP 124/68
[2021-02-27 15:53] VITALS: BP 112/64
[2021-02-27] MEDS ORDERED: FUROSEMIDE 40 MG/4 ML VIAL IVP ONE (16:30)
[2021-02-27] MEDS ORDERED: MAGNESIUM HYDROXIDE SUSPENSION 30 ML UDCUP PO PRN (16:45)
[2021-02-27] MEDS ORDERED: IPRATROPIUM BROMIDE 0.5 MG/2.5 ML NEB SOLUTION NEB PRN (16:45)
[2021-02-27] MEDS ORDERED: BISACODYL 10 MG RECTAL RECTAL SUPPOSITORY PR PRN (16:45)
[2021-02-27] MEDS ORDERED: ALBUTEROL SULFATE 2.5 MG/0.5 ML NEB SOLUTION NEB PRN (16:45)
[2021-02-27] MEDS ORDERED: MORPHINE SULFATE 2 MG/ML SYRINGE IVP PRN (16:45)
[2021-02-27] MEDS: CefTRIAXone 1 GM/DEXTROSE 50 ML IV SCH (17:51)
[2021-02-27] MEDS: AZITHROMYCIN 500 MG/NS 250 ML IV SCH (18:52)
[2021-02-27 19:12] VITALS: BP 112/67
[2021-02-27] MEDS: FUROSEMIDE 40 MG/4 ML VIAL IVP SCH (20:35)
[2021-02-27] MEDS: CARVEDILOL 25 MG TABLET PO SCH (20:36)
[2021-02-27] MEDS: LevETIRAcetam 500 MG in DEXTROSE 5%-WATER 100 ML IV SCH (20:37)
[2021-02-27] MEDS: HEPARIN SODIUM,PORCINE 5,000 UNITS/ML VIAL SQ SCH (23:33)
[2021-02-28] VITALS (7 sets, daily range): BP systolic 101–118; BP diastolic 57–69
[2021-02-28] MEDS: ONDANSETRON HCL 4 MG/2 ML VIAL IVP PRN ×2 (01:37→20:22)
[2021-02-28] MEDS ORDERED: ATORVASTATIN CALCIUM 40 MG TABLET PO SCH (09:00)
[2021-02-28] MEDS: CHOLECALCIFEROL (VIT D3) 1,000 UNITS [25 MCG] TABLET PO SCH (10:19)
[2021-02-28] MEDS: ASPIRIN 81 MG CHEWABLE TABLET PO SCH (10:19)
[2021-02-28] MEDS: FUROSEMIDE 40 MG/4 ML VIAL IVP SCH ×2 (10:24→20:15)
[2021-02-28] MEDS: ATORVASTATIN CALCIUM 40 MG TABLET PO SCH ×2 (10:25→20:15)
[2021-02-28] MEDS: PANTOPRAZOLE SODIUM 40 MG/VIAL IVP SCH (10:27)
[2021-02-28] MEDS: HEPARIN SODIUM,PORCINE 5,000 UNITS/ML VIAL SQ SCH ×2 (10:28→17:36)
[2021-02-28] MEDS: ACETAMINOPHEN 325 MG TABLET PO PRN (10:42)
[2021-02-28] MEDS: LevETIRAcetam 500 MG in DEXTROSE 5%-WATER 100 ML IV SCH (16:52)
[2021-02-28] MEDS: NICOTINE 21 MG/24 HOUR PATCH TD SCH (16:53)
[2021-02-28] MEDS: AZITHROMYCIN 500 MG/NS 250 ML IV SCH (17:38)
[2021-02-28] MEDS: CARVEDILOL 25 MG TABLET PO SCH ×2 (17:40→20:15)
[2021-02-28] MEDS: CefTRIAXone 1 GM/DEXTROSE 50 ML IV SCH (20:15)
[2021-02-28] MEDS: HYDROCODONE/ACETAMINOPHEN 5-325 MG TABLET PO PRN (20:15)
[2021-02-28] MEDS: ZOLPIDEM TARTRATE 5 MG TABLET PO PRN (21:19)
[2021-03-01] MEDS: HEPARIN SODIUM,PORCINE 5,000 UNITS/ML VIAL SQ SCH ×4 (01:01→23:09)
[2021-03-01 03:59] VITALS: BP 105/62
[2021-03-01] MEDS: LevETIRAcetam 500 MG in DEXTROSE 5%-WATER 100 ML IV SCH ×2 (04:53→15:52)
[2021-03-01 08:00] VITALS: BP 129/67
[2021-03-01] MEDS: CARVEDILOL 25 MG TABLET PO SCH ×2 (08:48→20:22)
[2021-03-01] MEDS: NICOTINE 21 MG/24 HOUR PATCH TD SCH (08:49)
[2021-03-01] MEDS: CHOLECALCIFEROL (VIT D3) 1,000 UNITS [25 MCG] TABLET PO SCH (08:49)
[2021-03-01] MEDS: PANTOPRAZOLE SODIUM 40 MG/VIAL IVP SCH (08:50)
[2021-03-01] MEDS: FUROSEMIDE 40 MG/4 ML VIAL IVP SCH ×2 (08:50→20:25)
[2021-03-01] MEDS: ASPIRIN 81 MG CHEWABLE TABLET PO SCH (08:55)
[2021-03-01 09:27] LABS: BASOPHILS % (AUTO) 0.8 % (0.0-2.0); EOSINOPHILS % (AUTO) 3.3 % (1.0-6.0); HEMATOCRIT 38.2 % (41-53); HEMOGLOBIN 12.3 g/dL (13.5-17.5); LYMPHOCYTES # (AUTO) 1.1 K/uL (1.0-4.8); LYMPHOCYTES % (AUTO) 20.9 % (22.0-44.0); MEAN CORPUSCULAR HEMOGLOBIN 29.1 pg (26.0-34.0); MEAN CORPUSCULAR HGB CONC 32.2 G/dL (31.0-37.0); MEAN CORPUSCULAR VOLUME 91 fL (80-100); MONOCYTES # (AUTO) 0.6 K/uL (0.1-1.0); MONOCYTES % (AUTO) 10.8 % (2.0-9.0); NEUTROPHILS # (AUTO) 3.3 K/uL (1.8-7.7); NEUTROPHILS % (AUTO) 64.2 % (40.0-70.0); PLATELET COUNT (AUTO) 284 K/uL (150-450); RED BLOOD CELL COUNT(AUTO) 4.22 MIL/uL (4.50-5.90); RED CELL DISTRIBUTION WIDTH 14.6 % (11.5-14.5)
[2021-03-01 09:39] LABS: INR 1.2 (0.9-1.1)
[2021-03-01 12:08] LABS: SPECIMENTYPE,BODY FLUID THORACENTESIS
[2021-03-01 12:53] LABS: PH, BODY FLUID 8
[2021-03-01 13:32] VITALS: BP 132/72
[2021-03-01 14:10] LABS: APPEARANCE,SPUN,BODY FLUID CLOUDY (CLEAR); APPEARANCE,UNSPUN,BODY FLUID BLOODY (CLEAR); BASOPHILS,BODY FLUID 0 %; COLOR,BODY FLUID RED (LT YELLOW); EOSINOPHILS,BF (ANAL) 0 %; LYMPHOCYTES,BODY FLUID 96 %; MONOCYTES,BODY FLUID 2 %; NEUTROPHILS,BODY FLUID 2 %; TOTAL VOLUME,BODY FLUID 700 mL; WBC, BODY FLUID 78 /cu. mm.
[2021-03-01] MEDS: HYDROCODONE/ACETAMINOPHEN 5-325 MG TABLET PO PRN (14:20)
[2021-03-01 14:38] VITALS: BP_SYST 126; BP_SYST 129; BP_DIAS 78
[2021-03-01] MEDS: AZITHROMYCIN 500 MG/NS 250 ML IV SCH (17:01)
[2021-03-01] MEDS: CefTRIAXone 1 GM/DEXTROSE 50 ML IV SCH ×2 (17:48→18:31)
[2021-03-01] MEDS: ONDANSETRON HCL 4 MG/2 ML VIAL IVP PRN (17:48)
[2021-03-01 19:55] VITALS: BP 112/63
[2021-03-01] MEDS: ATORVASTATIN CALCIUM 40 MG TABLET PO SCH (20:22)
[2021-03-01] MEDS: ZOLPIDEM TARTRATE 5 MG TABLET PO PRN (20:22)
[2021-03-01] MEDS: KETOROLAC TROMETHAMINE 15 MG/ML VIAL IVP PRN (20:24)
[2021-03-01 23:53] VITALS: BP 124/69
[2021-03-02] MEDS: LevETIRAcetam 500 MG in DEXTROSE 5%-WATER 100 ML IV SCH ×2 (04:23→15:37)
[2021-03-02] MEDS: ACETAMINOPHEN 325 MG TABLET PO PRN (04:24)
[2021-03-02 04:26] VITALS: BP 104/60
[2021-03-02] MEDS: HYDROCODONE/ACETAMINOPHEN 5-325 MG TABLET PO PRN (06:16)
[2021-03-02 07:34] VITALS: BP 96/48
[2021-03-02] MEDS: FUROSEMIDE 40 MG/4 ML VIAL IVP SCH (09:00)
[2021-03-02] MEDS: CARVEDILOL 25 MG TABLET PO SCH (09:00)
[2021-03-02] MEDS: HEPARIN SODIUM,PORCINE 5,000 UNITS/ML VIAL SQ SCH ×2 (09:00→15:38)
[2021-03-02] MEDS: CHOLECALCIFEROL (VIT D3) 1,000 UNITS [25 MCG] TABLET PO SCH (09:02)
[2021-03-02] MEDS: PANTOPRAZOLE SODIUM 40 MG/VIAL IVP SCH (09:02)
[2021-03-02] MEDS: ASPIRIN 81 MG CHEWABLE TABLET PO SCH (09:02)
[2021-03-02] MEDS: NICOTINE 21 MG/24 HOUR PATCH TD SCH (09:03)
[2021-03-02] MEDS: ONDANSETRON HCL 4 MG/2 ML VIAL IVP PRN (09:20)
[2021-03-02 11:01] VITALS: BP 102/57
[2021-03-02] MEDS: AZITHROMYCIN 500 MG/NS 250 ML IV SCH (16:12)
[2021-03-02 16:14] VITALS: BP 104/57
[2021-03-02] MEDS ORDERED: LEVE250T4 PO (17:31)
[2021-03-02] MEDS ORDERED: LISI-892 PO (17:33)
[2021-03-02] MEDS ORDERED: POTA8TAB71 PO (17:33)
[2021-03-02] MEDS: CefTRIAXone 1 GM/DEXTROSE 50 ML IV SCH (18:00)
[2021-03-02] MEDS ORDERED: FUROSEMIDE 40 MG TABLET PO SCH (21:00)
[2021-03-02] MEDS ORDERED: CARVEDILOL 6.25 MG TABLET PO SCH (21:00)
== END 2021-03-02 16:15 | disposition home or self-care (01) | DRG 291 ==
LOC: EMS 12:01 → 5N 16:14 → 5S 03-01 21:23
PROVIDERS: ADMIT Hospitalist; ATTEND Hospitalist
PROC: 0W993ZZ Drainage of Right Pleural Cavity, Percutaneous Approach (ICD-10-PCS; principal; 2021-02-28)
DX: I11.0 Hypertensive heart disease with heart failure (principal); J18.9 Pneumonia, unspecified organism; I50.23 Acute on chronic systolic (congestive) heart failure; J44.0 Chronic obstructive pulmonary disease with (acute) lower respiratory infection; J91.8 Pleural effusion in other conditions classified elsewhere; G40.909 Epilepsy, unspecified, not intractable, without status epilepticus; F41.9 Anxiety disorder, unspecified; F17.200 Nicotine dependence, unspecified, uncomplicated; G89.29 Other chronic pain; F12.90 Cannabis use, unspecified, uncomplicated; R09.02 Hypoxemia; Z20.822 Contact with and (suspected) exposure to COVID-19; F17.210 Nicotine dependence, cigarettes, uncomplicated; Z96.659 Presence of unspecified artificial knee joint; Z91.14 Patient's other noncompliance with medication regimen; Z82.49 Family history of ischemic heart disease and other diseases of the circulatory system; Z91.19 Patient's noncompliance with other medical treatment and regimen; Z86.73 Personal history of transient ischemic attack (TIA), and cerebral infarction without residual deficits; Z91.81 History of falling
CPT/HCPCS: 32555; 71045; 71275; 76942; 80053; 82465; 82728; 82945; 83605; 83615; 83735; 83880; 83986; 84100; 84157; 84484; 85025; 85379; 85610; 85730; 86140; 87015; 87040; 87070; 87101; 87205; 87206; 87804; 89051; 93005; 93306; 99291; C9113; J0456; J0696; J0712; J1644; J1885; J1940; J2270; J2405; J2543; J3370; J3490; J7050; J7060; Q9967; 36415-L1; 36415-TC; U0003

== ENCOUNTER 2021-04-05 03:07 | Inpatient (IN) | payer MEDICARE, MEDICAID ==
[~2021-04-05] VITALS: Ht 172.7 cm; Wt 81.8 kg
[~2021-04-05 03:07] MED LIST changes: -ASPI-1111 PO; +ASPI-1450 PO; -ASPI81TA39 PO; +ATOR40TA28 PO; +CARV25 PO; -CARV3 PO; -CARV6 PO; +CHOL-35 PO; -FURO20 PO; -FURO40 PO; +FURO80 PO; +LEVE250T4 PO; -LISI-660 PO; +LISI-892 PO; +POTA8TAB71 PO; -RISP0.5T39 PO; -SACU1TAB PO; -SIMV-260 PO
[2021-04-05] MEDS ORDERED: 0.9% SODIUM CHLORIDE 10 ML SYRINGE IVP PRN (03:15)
[2021-04-05 03:35] LABS: BASOPHILS % (AUTO) 0.8 % (0.0-2.0); EOSINOPHILS % (AUTO) 2.3 % (1.0-6.0); HEMATOCRIT 38.7 % (41-53); HEMOGLOBIN 12.4 g/dL (13.5-17.5); LYMPHOCYTES # (AUTO) 1.2 K/uL (1.0-4.8); LYMPHOCYTES % (AUTO) 21.1 % (22.0-44.0); MEAN CORPUSCULAR HEMOGLOBIN 29.5 pg (26.0-34.0); MEAN CORPUSCULAR HGB CONC 32.1 G/dL (31.0-37.0); MEAN CORPUSCULAR VOLUME 92 fL (80-100); MONOCYTES # (AUTO) 0.7 K/uL (0.1-1.0); NEUTROPHILS # (AUTO) 3.5 K/uL (1.8-7.7); NEUTROPHILS % (AUTO) 62.8 % (40.0-70.0); PLATELET COUNT (AUTO) 199 K/uL (150-450); RED BLOOD CELL COUNT(AUTO) 4.22 MIL/uL (4.50-5.90)
[2021-04-05 03:41] LABS: ANION GAP 7 mmol/L (8-16); CALCIUM, TOTAL 9.5 mg/dL (8.8-10.5); CARBON DIOXIDE 27 mmol/L (22-29); CHLORIDE 108 mmol/L (98-107); GLUCOSE,RANDOM 80 mg/dL (70-110); POTASSIUM 4.1 mmol/L (3.5-5.1); SODIUM SERUM 142 mmol/L (136-145); UREA NITROGEN, BLOOD 10 mg/dL (7-18)
[2021-04-05 03:45] LABS: INR 1.2 (0.9-1.1)
[2021-04-05 03:48] LABS: AMMONIA 20 umol/L (11-32); GLOMERULAR FILTR. RATE CALC > 60 mL/min (>60)
[2021-04-05 03:50] LABS: LACTIC ACID 0.6 mmol/L (0.4-2.0)
[2021-04-05 03:51] LABS: TROPONIN I < 0.02 ng/mL (0.00-0.05)
[2021-04-05 03:53] LABS: ACETAMINOPHEN < 2 mcg/mL (10-30); ALANINE AMINOTRANSFERASE 29 U/L (12-78); ALBUMIN 3.5 g/dL (3.4-5.0); ALKALINE PHOSPHATASE 84 U/L (46-116); ASPARTATE AMINOTRANSFERASE 35 U/L (15-37); BILIRUBIN,TOTAL 0.5 mg/dL (0.1-1.0); CREATINE KINASE, TOTAL ONLY 115 U/L (39-308); TOTAL PROTEIN, SERUM 7.6 g/dL (6.4-8.2)
[2021-04-05 04:01] LABS: B-TYPE NATRIURETIC PEPTIDE 1020 pg/mL (0-100)
[2021-04-05 04:04] LABS: COVID AG,FIA SOURCE NASOPHARYNGEAL
[2021-04-05] MEDS ORDERED: PIPERACILLIN/TAZO 3.375 GM/D5W 50 ML IV ONE (04:30)
[2021-04-05] MEDS ORDERED: VANCOMYCIN HCL 1.5 GM in DEXTROSE 5%-WATER 250 ML IV ONE (04:30)
[2021-04-05] MEDS ORDERED: ACETAMINOPHEN 325 MG TABLET PO PRN (05:00)
[2021-04-05] MEDS ORDERED: ONDANSETRON HCL 4 MG/2 ML VIAL IVP PRN (05:00)
[2021-04-05 05:32] LABS: ABG HCO3 22.2 mmol/L (22.0-26.0); ABG METHEMOGLOBIN 0.3 % (0.0-1.5); ABG OXYGEN CONTENT 16.2 mL/dL (15.0-23.0); ABG OXYGEN SATURATION 93.9 % (95.0-98.0); ABG OXYHEMOGLOBIN 92.7 % (94.0-100.0); ABG PCO2 39 mmHg (35-45); ABG PH 7.373 (7.35-7.450); ABG TOTAL HEMOGLOBIN 12.4 G/dL (12.0-18.0); O2 DEVICE,BLOOD GAS CANNULA (ROOM AIR); PO2, ARTERIAL BG 70.7 mmHg (75.0-83.0); SITE, BLOOD GAS RT RADIAL; SOURCE, BLOOD GAS ARTERIAL; TEMPERATURE, FAHRENHEIT, BG 98.6 FAHREN (96.0-98.6)
[2021-04-05 05:44] LABS: SALICYLATE < 2.8 mg/dL (2.8-20.0)
[2021-04-05] MEDS ORDERED: FUROSEMIDE 40 MG/4 ML VIAL IVP ONE (05:45)
[2021-04-05] MEDS ORDERED: SODIUM CHLORIDE 0.9% 100 ML ONE (05:55)
[2021-04-05] MEDS ORDERED: IOHEXOL 350 MG/ML 100 ML VIAL ONE (05:55)
[2021-04-05 07:07] LABS: AMMONIA 17 umol/L (11-32); TROPONIN I < 0.02 ng/mL (0.00-0.05)
[2021-04-05 08:04] LABS: APPEARANCE,URINE CLEAR (CLEAR); BILIRUBIN,URINE NEGATIVE (NEGATIVE); GLUCOSE, URINE (UA) NEGATIVE (NEGATIVE); KETONES,URINE NEGATIVE (NEGATIVE); LEUKOCYTE ESTERASE ,URINE NEGATIVE (NEGATIVE); NITRATE,URINE NEGATIVE (NEGATIVE); OCCULT BLOOD,URINE SMALL (NEGATIVE); PROTEIN,URINE NEGATIVE (NEGATIVE); UROBILINOGEN,URINE 0.2 mg/dL (<=1.0)
[2021-04-05 08:10] LABS: AMPHET/METH SCREEN,URINE NEGATIVE (NEGATIVE); BARBITURATE SCREEN, URINE NEGATIVE (NEGATIVE); BENZODIAZEPINES SCREEN,URINE NEGATIVE (NEGATIVE); CANNABINOID SCREEN,URINE POSITIVE (NEGATIVE); COCAINE SCREEN,URINE NEGATIVE (NEGATIVE); METHADONE SCREEN, URINE NEGATIVE (NEGATIVE); OPIATE SCREEN,URINE NEGATIVE (NEGATIVE); PHENCYCLIDINE SCREEN,URINE NEGATIVE (NEGATIVE)
[2021-04-05 08:27] LABS: BACTERIA,URINE None Seen /HPF (None Seen); SQUAMOUS EPITHELIAL CELL,UR Few /LPF (None Seen); WBC,URINE None Seen /HPF (0-5)
[2021-04-05] MEDS: ASPIRIN 81 MG CHEWABLE TABLET PO SCH (09:00)
[2021-04-05] MEDS: CHOLECALCIFEROL (VIT D3) 1,000 UNITS [25 MCG] TABLET PO SCH (09:00)
[2021-04-05] MEDS ORDERED: CARVEDILOL 6.25 MG TABLET PO SCH ×2 (09:00)
[2021-04-05] MEDS ORDERED: LevETIRAcetam 500 MG TABLET PO SCH (09:00)
[2021-04-05] MEDS: POTASSIUM CHLORIDE 8 MEQ ER TABLET PO SCH (09:00)
[2021-04-05] MEDS: LISINOPRIL 5 MG TABLET PO SCH (09:00)
[2021-04-05] MEDS ORDERED: HydrALAZINE HCL 20 MG/ML VIAL IVP PRN (09:15)
[2021-04-05] MEDS: FUROSEMIDE 20 MG/2 ML VIAL IVP SCH ×2 (09:40→21:41)
[2021-04-05] MEDS: LevETIRAcetam 500 MG in DEXTROSE 5%-WATER 100 ML IV SCH ×2 (10:41→21:42)
[2021-04-05] MEDS ORDERED: CARV6 PO (11:06)
[2021-04-05] MEDS ORDERED: LEVE500T20 PO (11:06)
[2021-04-05] MEDS ORDERED: FURO40 PO (11:06)
[2021-04-05] MEDS: PIPERACILLIN/TAZO 3.375 GM/D5W 50 ML IV SCH ×2 (12:10→17:29)
[2021-04-05 15:32] VITALS: BP 120/54
[2021-04-05] MEDS ORDERED: SODIUM CHLORIDE 0.9% 500 ML IV ONE (16:12)
[2021-04-05] MEDS: VANCOMYCIN HCL 750 MG in DEXTROSE 5%-WATER 250 ML IV SCH (20:22)
[2021-04-05 20:35] VITALS: BP 112/57
[2021-04-05 20:39] VITALS: BP 112/58
[2021-04-05] MEDS ORDERED: FUROSEMIDE 20 MG TABLET PO SCH (21:00)
[2021-04-05] MEDS: ATORVASTATIN CALCIUM 40 MG TABLET PO SCH (21:41)
[2021-04-05] MEDS: METOPROLOL TARTRATE 25 MG TABLET PO SCH (21:41)
[2021-04-06] MEDS: PIPERACILLIN/TAZO 3.375 GM/D5W 50 ML IV SCH ×5 (00:04→23:50)
[2021-04-06 04:03] VITALS: BP 115/60
[2021-04-06 07:21] LABS: BASOPHILS % (AUTO) 1.3 % (0.0-2.0); EOSINOPHILS % (AUTO) 2.4 % (1.0-6.0); HEMATOCRIT 39.2 % (41-53); HEMOGLOBIN 12.7 g/dL (13.5-17.5); LYMPHOCYTES # (AUTO) 0.9 K/uL (1.0-4.8); LYMPHOCYTES % (AUTO) 18.3 % (22.0-44.0); MEAN CORPUSCULAR HEMOGLOBIN 29.3 pg (26.0-34.0); MEAN CORPUSCULAR HGB CONC 32.5 G/dL (31.0-37.0); MEAN CORPUSCULAR VOLUME 90 fL (80-100); MONOCYTES # (AUTO) 0.8 K/uL (0.1-1.0); MONOCYTES % (AUTO) 16.5 % (2.0-9.0); NEUTROPHILS # (AUTO) 2.9 K/uL (1.8-7.7); NEUTROPHILS % (AUTO) 61.5 % (40.0-70.0); PLATELET COUNT (AUTO) 218 K/uL (150-450); RED BLOOD CELL COUNT(AUTO) 4.35 MIL/uL (4.50-5.90); RED CELL DISTRIBUTION WIDTH 15.8 % (11.5-14.5)
[2021-04-06] MEDS: VANCOMYCIN HCL 750 MG in DEXTROSE 5%-WATER 250 ML IV SCH ×2 (07:34→19:54)
[2021-04-06 07:47] LABS: ANION GAP 6 mmol/L (8-16); CALCIUM, TOTAL 8.9 mg/dL (8.8-10.5); CARBON DIOXIDE 29 mmol/L (22-29); CHLORIDE 102 mmol/L (98-107); CREATININE 1.12 mg/dL (0.60-1.30); FREE T4 (FREE THYROXINE) 1.34 ng/dL (0.76-1.46); GLOMERULAR FILTR. RATE CALC > 60 mL/min (>60); GLUCOSE,RANDOM 81 mg/dL (70-110); POTASSIUM 3.7 mmol/L (3.5-5.1); SODIUM SERUM 137 mmol/L (136-145); UREA NITROGEN, BLOOD 12 mg/dL (7-18)
[2021-04-06 08:00] VITALS: BP 104/58
[2021-04-06] MEDS: LISINOPRIL 5 MG TABLET PO SCH (08:06)
[2021-04-06] MEDS: ASPIRIN 81 MG CHEWABLE TABLET PO SCH (08:06)
[2021-04-06] MEDS: METOPROLOL TARTRATE 25 MG TABLET PO SCH ×2 (08:07→20:08)
[2021-04-06] MEDS: CHOLECALCIFEROL (VIT D3) 1,000 UNITS [25 MCG] TABLET PO SCH (08:07)
[2021-04-06 09:55] VITALS: BP 103/60
[2021-04-06] MEDS: LevETIRAcetam 500 MG in DEXTROSE 5%-WATER 100 ML IV SCH ×2 (10:02→21:31)
[2021-04-06] MEDS: FUROSEMIDE 20 MG/2 ML VIAL IVP SCH ×2 (10:02→20:07)
[2021-04-06 11:58] VITALS: BP 96/58
[2021-04-06 15:32] VITALS: BP 105/55
[2021-04-06] MEDS: BENZONATATE 100 MG CAPSULE PO PRN (15:53)
[2021-04-06 20:00] VITALS: BP 91/52
[2021-04-06] MEDS: ATORVASTATIN CALCIUM 40 MG TABLET PO SCH (21:31)
[2021-04-07] VITALS: BP 100/55
[2021-04-07] MEDS: PIPERACILLIN/TAZO 3.375 GM/D5W 50 ML IV SCH ×4 (05:35→23:10)
[2021-04-07 05:40] VITALS: BP 99/63
[2021-04-07] MEDS: VANCOMYCIN HCL 750 MG in DEXTROSE 5%-WATER 250 ML IV SCH (07:25)
[2021-04-07 07:26] LABS: EOSINOPHILS % (AUTO) 2.4 % (1.0-6.0); HEMATOCRIT 39.1 % (41-53); HEMOGLOBIN 12.7 g/dL (13.5-17.5); LYMPHOCYTES # (AUTO) 1.1 K/uL (1.0-4.8); MEAN CORPUSCULAR HEMOGLOBIN 29.4 pg (26.0-34.0); MEAN CORPUSCULAR HGB CONC 32.6 G/dL (31.0-37.0); MEAN CORPUSCULAR VOLUME 90 fL (80-100); MONOCYTES # (AUTO) 1.2 K/uL (0.1-1.0); MONOCYTES % (AUTO) 28.9 % (2.0-9.0); NEUTROPHILS # (AUTO) 1.6 K/uL (1.8-7.7); NEUTROPHILS % (AUTO) 40.7 % (40.0-70.0); PLATELET COUNT (AUTO) 210 K/uL (150-450); RED BLOOD CELL COUNT(AUTO) 4.33 MIL/uL (4.50-5.90); RED CELL DISTRIBUTION WIDTH 15.6 % (11.5-14.5)
[2021-04-07 07:59] VITALS: BP 119/71
[2021-04-07 08:01] LABS: ALANINE AMINOTRANSFERASE 21 U/L (12-78); ALKALINE PHOSPHATASE 70 U/L (46-116); ANION GAP 2 mmol/L (8-16); ASPARTATE AMINOTRANSFERASE 20 U/L (15-37); BILIRUBIN,TOTAL 0.6 mg/dL (0.1-1.0); CARBON DIOXIDE 31 mmol/L (22-29); CHLORIDE 103 mmol/L (98-107); CREATININE 1.13 mg/dL (0.60-1.30); GLUCOSE,RANDOM 84 mg/dL (70-110); SODIUM SERUM 136 mmol/L (136-145); TOTAL PROTEIN, SERUM 7.1 g/dL (6.4-8.2); UREA NITROGEN, BLOOD 10 mg/dL (7-18); VANCOMYCIN,RANDOM 7.6 mcg/mL (25.0-50.0)
[2021-04-07 08:04] LABS: GLOMERULAR FILTR. RATE CALC > 60 mL/min (>60)
[2021-04-07] MEDS: FUROSEMIDE 20 MG/2 ML VIAL IVP SCH ×2 (09:00→20:30)
[2021-04-07] MEDS: METOPROLOL TARTRATE 25 MG TABLET PO SCH ×2 (09:00→20:38)
[2021-04-07] MEDS: CHOLECALCIFEROL (VIT D3) 1,000 UNITS [25 MCG] TABLET PO SCH (09:38)
[2021-04-07] MEDS: POTASSIUM CHLORIDE 8 MEQ ER TABLET PO SCH (09:38)
[2021-04-07] MEDS: ASPIRIN 81 MG CHEWABLE TABLET PO SCH (09:38)
[2021-04-07] MEDS: BENZONATATE 100 MG CAPSULE PO PRN ×2 (09:40→20:31)
[2021-04-07 09:45] VITALS: BP 101/56
[2021-04-07] MEDS: LevETIRAcetam 500 MG in DEXTROSE 5%-WATER 100 ML IV SCH ×2 (10:06→23:11)
[2021-04-07] MEDS: ACETAMINOPHEN 325 MG TABLET PO PRN ×2 (11:23→20:31)
[2021-04-07 15:50] VITALS: BP 96/57
[2021-04-07 20:30] VITALS: BP 100/56
[2021-04-07] MEDS: VANCOMYCIN HCL 1 GM/D5% WATER 200 ML IV SCH (20:30)
[2021-04-07] MEDS: ATORVASTATIN CALCIUM 40 MG TABLET PO SCH (20:31)
[2021-04-08 04:10] VITALS: BP 92/60
[2021-04-08] MEDS: PIPERACILLIN/TAZO 3.375 GM/D5W 50 ML IV SCH ×2 (06:07→12:01)
[2021-04-08 06:51] LABS: ANION GAP 4 mmol/L (8-16); CALCIUM, TOTAL 8.9 mg/dL (8.8-10.5); CARBON DIOXIDE 29 mmol/L (22-29); CHLORIDE 105 mmol/L (98-107); CREATININE 1.05 mg/dL (0.60-1.30); GLUCOSE,RANDOM 75 mg/dL (70-110); POTASSIUM 4.1 mmol/L (3.5-5.1); SODIUM SERUM 138 mmol/L (136-145); UREA NITROGEN, BLOOD 12 mg/dL (7-18)
[2021-04-08 06:52] LABS: GLOMERULAR FILTR. RATE CALC > 60 mL/min (>60)
[2021-04-08 08:10] VITALS: BP 109/68
[2021-04-08] MEDS: CHOLECALCIFEROL (VIT D3) 1,000 UNITS [25 MCG] TABLET PO SCH (08:29)
[2021-04-08] MEDS: ASPIRIN 81 MG CHEWABLE TABLET PO SCH (08:30)
[2021-04-08] MEDS: FUROSEMIDE 20 MG/2 ML VIAL IVP SCH (08:30)
[2021-04-08] MEDS: METOPROLOL TARTRATE 25 MG TABLET PO SCH (08:30)
[2021-04-08] MEDS: ACETAMINOPHEN 325 MG TABLET PO PRN (08:34)
[2021-04-08] MEDS: VANCOMYCIN HCL 1 GM/D5% WATER 200 ML IV SCH (08:52)
[2021-04-08] MEDS ORDERED: FURO20 PO (10:15)
[2021-04-08] MEDS ORDERED: CARV3 PO (10:15)
[2021-04-08] MEDS ORDERED: CEPH500C3 PO (10:16)
[2021-04-08] MEDS ORDERED: AZIT-104 PO (10:17)
[2021-04-08] MEDS: LevETIRAcetam 500 MG in DEXTROSE 5%-WATER 100 ML IV SCH (10:39)
== END 2021-04-08 16:00 | disposition home health service (06) | DRG 291 ==
LOC: EMS 03:08 → 6N 14:16
PROVIDERS: ADMIT Internal Medicine; ATTEND Internal Medicine
PROC: 4A10X4Z Monitoring of Central Nervous Electrical Activity, External Approach (ICD-10-PCS; principal; 2021-04-05)
DX: I11.0 Hypertensive heart disease with heart failure (principal); J18.9 Pneumonia, unspecified organism; I50.23 Acute on chronic systolic (congestive) heart failure; G92.8 Other toxic encephalopathy; F84.0 Autistic disorder; I42.9 Cardiomyopathy, unspecified; F17.210 Nicotine dependence, cigarettes, uncomplicated; Z96.659 Presence of unspecified artificial knee joint; F12.90 Cannabis use, unspecified, uncomplicated; F41.9 Anxiety disorder, unspecified; M54.9 Dorsalgia, unspecified; Z20.822 Contact with and (suspected) exposure to COVID-19; G89.29 Other chronic pain; G40.909 Epilepsy, unspecified, not intractable, without status epilepticus; Z95.810 Presence of automatic (implantable) cardiac defibrillator; Z82.49 Family history of ischemic heart disease and other diseases of the circulatory system; Z87.01 Personal history of pneumonia (recurrent); Z79.899 Other long term (current) drug therapy; Z79.82 Long term (current) use of aspirin
CPT/HCPCS: 36600; 70450; 71045; 71275; 80048; 80053; 80202; 81001; 82140; 82550; 82805; 83605; 83880; 84145; 84439; 84443; 84484; 85025; 85610; 87040; 87081; 93005; 95816; 97110; 97116; 97162; 97530; 99285; G0480; G0481; J0712; J1940; J2543; J3370; J7040; J7050; J7060; Q9967; 36415-L1; 36415-TC; U0003

== ENCOUNTER 2021-06-15 20:20 | Inpatient (IN) | payer MEDICARE, MEDICAID ==
[~2021-06-15] VITALS: Ht 172.7 cm; Wt 67.1 kg
[~2021-06-15 20:20] MED LIST changes: +AZIT-104 PO; -CARV25 PO; +CARV3 PO; +CEPH500C3 PO; +FURO20 PO; -FURO80 PO; -LEVE250T4 PO; +LEVE500T20 PO
[2021-06-15 21:03] LABS: BASOPHILS % (AUTO) 1.4 % (0.0-2.0); EOSINOPHILS % (AUTO) 0.7 % (1.0-6.0); HEMATOCRIT 38.2 % (41-53); HEMOGLOBIN 12.6 g/dL (13.5-17.5); LYMPHOCYTES # (AUTO) 1.1 K/uL (1.0-4.8); LYMPHOCYTES % (AUTO) 26.7 % (22.0-44.0); MEAN CORPUSCULAR HEMOGLOBIN 29.4 pg (26.0-34.0); MEAN CORPUSCULAR VOLUME 89 fL (80-100); MONOCYTES # (AUTO) 0.5 K/uL (0.1-1.0); MONOCYTES % (AUTO) 12.4 % (2.0-9.0); NEUTROPHILS # (AUTO) 2.4 K/uL (1.8-7.7); NEUTROPHILS % (AUTO) 58.8 % (40.0-70.0); PLATELET COUNT (AUTO) 242 K/uL (150-450); RED BLOOD CELL COUNT(AUTO) 4.27 MIL/uL (4.50-5.90); RED CELL DISTRIBUTION WIDTH 16.3 % (11.5-14.5)
[2021-06-15 21:08] LABS: ANION GAP 10 mmol/L (8-16); CALCIUM, TOTAL 9.4 mg/dL (8.8-10.5); CARBON DIOXIDE 25 mmol/L (22-29); CHLORIDE 107 mmol/L (98-107); CREATININE 0.85 mg/dL (0.60-1.30); GLUCOSE,RANDOM 77 mg/dL (70-110); POTASSIUM 4.1 mmol/L (3.5-5.1); SODIUM SERUM 142 mmol/L (136-145); UREA NITROGEN, BLOOD 18 mg/dL (7-18)
[2021-06-15 21:12] LABS: GLOMERULAR FILTR. RATE CALC > 60 mL/min (>60)
[2021-06-15 21:14] LABS: ALANINE AMINOTRANSFERASE 77 U/L (12-78); ALBUMIN 3.3 g/dL (3.4-5.0); ALKALINE PHOSPHATASE 85 U/L (46-116); ASPARTATE AMINOTRANSFERASE 36 U/L (15-37); BILIRUBIN,TOTAL 0.7 mg/dL (0.1-1.0); TOTAL PROTEIN, SERUM 7.3 g/dL (6.4-8.2)
[2021-06-15 21:30] LABS: B-TYPE NATRIURETIC PEPTIDE 1320 pg/mL (0-100)
[2021-06-15] MEDS ORDERED: FUROSEMIDE 40 MG/4 ML VIAL IVP ONE (22:45)
[2021-06-15] MEDS ORDERED: NITROGLYCERIN 2% (1 GM=INCH) PACKET TP ONE (22:45)
[2021-06-15 22:54] LABS: COVID AG,FIA SOURCE NASAL SWAB
[2021-06-15] MEDS ORDERED: ACETAMINOPHEN 325 MG TABLET PO PRN (23:15)
[2021-06-15] MEDS ORDERED: ONDANSETRON HCL 4 MG/2 ML VIAL IVP PRN (23:15)
[2021-06-15] MEDS: HEPARIN SODIUM,PORCINE 5,000 UNITS/ML VIAL SQ SCH (23:29)
[2021-06-16] VITALS (7 sets, daily range): BP systolic 99–147; BP diastolic 59–80
[2021-06-16 06:11] LABS: GLUCOMETER DEV NAME(LOC) 5N.1C; GLUCOSE,POINT OF CARE 133 MG/DL (70-110)
[2021-06-16] MEDS ORDERED: CEPHALEXIN MONOHYDRATE 500 MG CAPSULE PO SCH (09:00)
[2021-06-16] MEDS: LISINOPRIL 5 MG TABLET PO SCH (09:12)
[2021-06-16] MEDS: LevETIRAcetam 500 MG TABLET PO SCH ×2 (09:12→20:36)
[2021-06-16] MEDS: CHOLECALCIFEROL (VIT D3) 1,000 UNITS [25 MCG] TABLET PO SCH (09:12)
[2021-06-16] MEDS: ASPIRIN 81 MG CHEWABLE TABLET PO SCH (09:13)
[2021-06-16] MEDS: HEPARIN SODIUM,PORCINE 5,000 UNITS/ML VIAL SQ SCH ×3 (09:13→23:29)
[2021-06-16] MEDS: CARVEDILOL 3.125 MG TABLET PO SCH ×2 (09:14→20:36)
[2021-06-16] MEDS: FUROSEMIDE 20 MG/2 ML VIAL IVP SCH ×2 (09:22→20:36)
[2021-06-16] MEDS: ATORVASTATIN CALCIUM 40 MG TABLET PO SCH (20:35)
[2021-06-17] VITALS (7 sets, daily range): BP systolic 93–115; BP diastolic 54–77
[2021-06-17] MEDS ORDERED: POTASSIUM CHLORIDE 8 MEQ ER TABLET PO SCH (09:00)
[2021-06-17] MEDS: FUROSEMIDE 20 MG/2 ML VIAL IVP SCH ×2 (09:25→21:17)
[2021-06-17] MEDS: HEPARIN SODIUM,PORCINE 5,000 UNITS/ML VIAL SQ SCH ×3 (09:26→23:10)
[2021-06-17] MEDS: ASPIRIN 81 MG CHEWABLE TABLET PO SCH (09:27)
[2021-06-17] MEDS: LISINOPRIL 5 MG TABLET PO SCH (09:28)
[2021-06-17] MEDS: CHOLECALCIFEROL (VIT D3) 1,000 UNITS [25 MCG] TABLET PO SCH (09:28)
[2021-06-17] MEDS: LevETIRAcetam 500 MG TABLET PO SCH ×2 (09:28→21:16)
[2021-06-17] MEDS: CARVEDILOL 3.125 MG TABLET PO SCH ×2 (09:30→21:00)
[2021-06-17] MEDS: ATORVASTATIN CALCIUM 40 MG TABLET PO SCH (21:16)
[2021-06-18 04:16] VITALS: BP 103/65
[2021-06-18] MEDS: HEPARIN SODIUM,PORCINE 5,000 UNITS/ML VIAL SQ SCH (07:48)
[2021-06-18] MEDS: CHOLECALCIFEROL (VIT D3) 1,000 UNITS [25 MCG] TABLET PO SCH (07:48)
[2021-06-18] MEDS: LevETIRAcetam 500 MG TABLET PO SCH (07:48)
[2021-06-18] MEDS: LISINOPRIL 5 MG TABLET PO SCH (07:48)
[2021-06-18] MEDS: ASPIRIN 81 MG CHEWABLE TABLET PO SCH (07:48)
[2021-06-18] MEDS: CARVEDILOL 3.125 MG TABLET PO SCH (07:48)
[2021-06-18] MEDS: FUROSEMIDE 20 MG/2 ML VIAL IVP SCH (07:48)
[2021-06-18 09:48] VITALS: BP 98/63
== END 2021-06-18 16:45 | disposition home or self-care (01) | DRG 291 ==
LOC: EMS 20:27 → 5S 23:00
PROVIDERS: ADMIT Internal Medicine; ATTEND Internal Medicine
DX: I11.0 Hypertensive heart disease with heart failure (principal); I50.23 Acute on chronic systolic (congestive) heart failure; J96.01 Acute respiratory failure with hypoxia; F84.0 Autistic disorder; Z96.659 Presence of unspecified artificial knee joint; G40.909 Epilepsy, unspecified, not intractable, without status epilepticus; E78.5 Hyperlipidemia, unspecified; Z20.822 Contact with and (suspected) exposure to COVID-19; Z82.49 Family history of ischemic heart disease and other diseases of the circulatory system; Z91.14 Patient's other noncompliance with medication regimen; Z95.0 Presence of cardiac pacemaker; Z72.0 Tobacco use; Z71.6 Tobacco abuse counseling
CPT/HCPCS: 71045; 80053; 82962; 83880; 84484; 85025; 93005; 93306; 99285; J1644; J1940; 36415-L1; 36415-TC

== ENCOUNTER 2021-07-16 07:26 | Inpatient (IN) | payer MEDICARE, MEDICAID ==
[~2021-07-16] VITALS: Ht 180.3 cm; Wt 73.8 kg
[2021-07-16 07:56] LABS: GLUCOSE,POINT OF CARE 73 MG/DL (70-110)
[2021-07-16 08:02] LABS: BASOPHILS % (AUTO) 0.7 % (0.0-2.0); EOSINOPHILS % (AUTO) 0.9 % (1.0-6.0); HEMATOCRIT 38.9 % (41-53); HEMOGLOBIN 12.5 g/dL (13.5-17.5); LYMPHOCYTES % (AUTO) 21.4 % (22.0-44.0); MEAN CORPUSCULAR HEMOGLOBIN 29.3 pg (26.0-34.0); MEAN CORPUSCULAR HGB CONC 32.3 G/dL (31.0-37.0); MEAN CORPUSCULAR VOLUME 91 fL (80-100); MONOCYTES # (AUTO) 0.6 K/uL (0.1-1.0); MONOCYTES % (AUTO) 13.1 % (2.0-9.0); NEUTROPHILS # (AUTO) 2.9 K/uL (1.8-7.7); NEUTROPHILS % (AUTO) 63.9 % (40.0-70.0); PLATELET COUNT (AUTO) 203 K/uL (150-450); RED BLOOD CELL COUNT(AUTO) 4.29 MIL/uL (4.50-5.90); RED CELL DISTRIBUTION WIDTH 15.8 % (11.5-14.5)
[2021-07-16 08:22] LABS: INR 1.3 (0.9-1.1); PROTHROMBIN TIME 14.1 SEC (9.4-11.6)
[2021-07-16 08:57] LABS: ANION GAP 7 mmol/L (8-16); CALCIUM, TOTAL 8.9 mg/dL (8.8-10.5); CARBON DIOXIDE 28 mmol/L (22-29); CHLORIDE 108 mmol/L (98-107); GLUCOSE,RANDOM 72 mg/dL (70-110); SODIUM SERUM 143 mmol/L (136-145); UREA NITROGEN, BLOOD 13 mg/dL (7-18)
[2021-07-16 08:58] LABS: GLOMERULAR FILTR. RATE CALC > 60 mL/min (>60)
[2021-07-16 09:03] LABS: ALANINE AMINOTRANSFERASE 31 U/L (12-78); ALBUMIN 2.9 g/dL (3.4-5.0); ALKALINE PHOSPHATASE 70 U/L (46-116); ASPARTATE AMINOTRANSFERASE 29 U/L (15-37); BILIRUBIN,TOTAL 0.3 mg/dL (0.1-1.0); CREATINE KINASE, TOTAL ONLY 73 U/L (39-308); PHOSPHORUS 3.7 mg/dL (2.5-4.9); TOTAL PROTEIN, SERUM 6.6 g/dL (6.4-8.2)
[2021-07-16 09:35] LABS: COVID AG,FIA SOURCE NASOPHARYNGEAL
[2021-07-16] MEDS ORDERED: FUROSEMIDE 20 MG/2 ML VIAL IVP ONE (10:00)
[2021-07-16] MEDS ORDERED: CefTRIAXone 1 GM/DEXTROSE 50 ML IV ONE (10:00)
[2021-07-16] MEDS ORDERED: AZITHROMYCIN 500 MG/NS 250 ML IV ONE (10:00)
[2021-07-16] MEDS ORDERED: LevETIRAcetam 1,000 MG in DEXTROSE 5%-WATER 100 ML IV ONE (11:00)
[2021-07-16 11:37] LABS: ABG BASE EXCESS 1.5 mmol/L (-2.0-3.0); ABG CARBOXYHEMOGLOBIN 1.4 % (0.0-1.5); ABG HCO3 25.7 mmol/L (22.0-26.0); ABG METHEMOGLOBIN 0.1 % (0.0-1.5); ABG OXYGEN CONTENT 18.2 mL/dL (15.0-23.0); ABG OXYGEN SATURATION 96.1 % (95.0-98.0); ABG OXYHEMOGLOBIN 94.7 % (94.0-100.0); ABG PCO2 39 mmHg (35-45); ABG PH 7.433 (7.35-7.450); ABG TOTAL HEMOGLOBIN 13.6 G/dL (12.0-18.0); PO2, ARTERIAL BG 76.6 mmHg (75.0-83.0); SOURCE, BLOOD GAS ARTERIAL; TEMPERATURE, FAHRENHEIT, BG 97.7 FAHREN (96.0-98.6)
[2021-07-16 11:38] LABS: SITE, BLOOD GAS LFT RADIAL
[2021-07-16 11:40] LABS: ABG A-A DIFF O2 26.3 mmHg (10-20.0); O2 DEVICE,BLOOD GAS ROOM AIR (ROOM AIR)
[2021-07-16 13:08] LABS: AMPHET/METH SCREEN,URINE NEGATIVE (NEGATIVE); BARBITURATE SCREEN, URINE NEGATIVE (NEGATIVE); BENZODIAZEPINES SCREEN,URINE NEGATIVE (NEGATIVE); CANNABINOID SCREEN,URINE POSITIVE (NEGATIVE); COCAINE SCREEN,URINE NEGATIVE (NEGATIVE); METHADONE SCREEN, URINE NEGATIVE (NEGATIVE); OPIATE SCREEN,URINE NEGATIVE (NEGATIVE)
[2021-07-16 13:09] LABS: PHENCYCLIDINE SCREEN,URINE NEGATIVE (NEGATIVE)
[2021-07-16 13:13] LABS: APPEARANCE,URINE CLEAR (CLEAR); BILIRUBIN,URINE NEGATIVE (NEGATIVE); GLUCOSE, URINE (UA) NEGATIVE (NEGATIVE); KETONES,URINE NEGATIVE (NEGATIVE); LEUKOCYTE ESTERASE ,URINE NEGATIVE (NEGATIVE); NITRATE,URINE NEGATIVE (NEGATIVE); OCCULT BLOOD,URINE TRACE (NEGATIVE); PH,URINE 5.5 (5.0-8.0); PROTEIN,URINE NEGATIVE (NEGATIVE); SPECIFIC GRAVITIY, URINE 1.021 (1.003-1.030); UROBILINOGEN,URINE <=1.0 mg/dL (<=1.0)
[2021-07-16 13:27] LABS: BACTERIA,URINE None Seen /HPF (None Seen); RBC,URINE 0-2 /HPF (0-2); WBC,URINE None Seen /HPF (0-5)
[2021-07-16] MEDS ORDERED: 0.9% SODIUM CHLORIDE 10 ML SYRINGE IVP PRN (13:45)
[2021-07-16] MEDS ORDERED: ONDANSETRON HCL 4 MG/2 ML VIAL IVP PRN (13:45)
[2021-07-16] MEDS ORDERED: ACETAMINOPHEN 325 MG TABLET PO PRN ×2 (13:45→16:30)
[2021-07-16 15:44] VITALS: BP 105/60
[2021-07-16] MEDS ORDERED: BISACODYL 10 MG RECTAL RECTAL SUPPOSITORY PR PRN (16:30)
[2021-07-16] MEDS ORDERED: MAGNESIUM HYDROXIDE SUSPENSION 30 ML UDCUP PO PRN (16:30)
[2021-07-16] MEDS ORDERED: MORPHINE SULFATE 2 MG/ML SYRINGE IVP PRN (16:30)
[2021-07-16] MEDS: ATORVASTATIN CALCIUM 40 MG TABLET PO SCH (19:41)
[2021-07-16] MEDS: DOCUSATE SODIUM 100 MG CAPSULE PO SCH (19:41)
[2021-07-16] MEDS: HYDROCODONE/ACETAMINOPHEN 5-325 MG TABLET PO PRN (19:41)
[2021-07-16] MEDS: CARVEDILOL 3.125 MG TABLET PO SCH (19:42)
[2021-07-16] MEDS: LevETIRAcetam 500 MG TABLET PO SCH (19:42)
[2021-07-16 19:45] VITALS: BP 94/61
[2021-07-16 23:30] VITALS: BP 107/65
[2021-07-17] MEDS: HEPARIN SODIUM,PORCINE 5,000 UNITS/ML VIAL SQ SCH ×4 (00:18→23:40)
[2021-07-17] MEDS: HYDROCODONE/ACETAMINOPHEN 5-325 MG TABLET PO PRN ×4 (00:18→23:40)
[2021-07-17] MEDS: ZOLPIDEM TARTRATE 5 MG TABLET PO PRN ×2 (00:35→22:05)
[2021-07-17 03:42] VITALS: BP 103/59
[2021-07-17 07:52] VITALS: BP 110/70
[2021-07-17 08:02] LABS: BASOPHILS % (AUTO) 0.7 % (0.0-2.0); EOSINOPHILS % (AUTO) 1.8 % (1.0-6.0); HEMATOCRIT 36.9 % (41-53); LYMPHOCYTES # (AUTO) 1.2 K/uL (1.0-4.8); LYMPHOCYTES % (AUTO) 32.2 % (22.0-44.0); MEAN CORPUSCULAR HEMOGLOBIN 29.3 pg (26.0-34.0); MEAN CORPUSCULAR HGB CONC 32.6 G/dL (31.0-37.0); MEAN CORPUSCULAR VOLUME 90 fL (80-100); MONOCYTES # (AUTO) 0.5 K/uL (0.1-1.0); MONOCYTES % (AUTO) 12.7 % (2.0-9.0); NEUTROPHILS % (AUTO) 52.6 % (40.0-70.0); PLATELET COUNT (AUTO) 196 K/uL (150-450); RED BLOOD CELL COUNT(AUTO) 4.11 MIL/uL (4.50-5.90); RED CELL DISTRIBUTION WIDTH 15.9 % (11.5-14.5)
[2021-07-17 08:19] LABS: ALANINE AMINOTRANSFERASE 25 U/L (12-78); ALBUMIN 2.9 g/dL (3.4-5.0); ALKALINE PHOSPHATASE 74 U/L (46-116); ANION GAP 5 mmol/L (8-16); ASPARTATE AMINOTRANSFERASE 20 U/L (15-37); BILIRUBIN,TOTAL 0.5 mg/dL (0.1-1.0); CALCIUM, TOTAL 8.6 mg/dL (8.8-10.5); CARBON DIOXIDE 28 mmol/L (22-29); CHLORIDE 105 mmol/L (98-107); CREATININE 0.85 mg/dL (0.60-1.30); GLUCOSE,RANDOM 89 mg/dL (70-110); POTASSIUM 3.9 mmol/L (3.5-5.1); SODIUM SERUM 138 mmol/L (136-145); TOTAL PROTEIN, SERUM 6.5 g/dL (6.4-8.2); UREA NITROGEN, BLOOD 12 mg/dL (7-18)
[2021-07-17 08:21] LABS: GLOMERULAR FILTR. RATE CALC > 60 mL/min (>60)
[2021-07-17] MEDS: LISINOPRIL 5 MG TABLET PO SCH (08:36)
[2021-07-17] MEDS: CARVEDILOL 3.125 MG TABLET PO SCH ×2 (08:37→19:47)
[2021-07-17] MEDS: PANTOPRAZOLE SODIUM 40 MG DR TABLET PO SCH (08:37)
[2021-07-17] MEDS: DOCUSATE SODIUM 100 MG CAPSULE PO SCH ×2 (08:37→19:47)
[2021-07-17] MEDS: ASPIRIN 81 MG CHEWABLE TABLET PO SCH (08:37)
[2021-07-17] MEDS: LevETIRAcetam 500 MG TABLET PO SCH ×2 (08:37→19:47)
[2021-07-17] MEDS: FUROSEMIDE 20 MG/2 ML VIAL IVP SCH (08:38)
[2021-07-17 11:56] VITALS: BP 106/69
[2021-07-17 16:30] VITALS: BP 109/59
[2021-07-17] MEDS: ATORVASTATIN CALCIUM 40 MG TABLET PO SCH (19:47)
[2021-07-17] MEDS: ONDANSETRON HCL 4 MG/2 ML VIAL IVP PRN (19:52)
[2021-07-17 21:00] VITALS: BP 102/60
[2021-07-18 00:05] VITALS: BP 111/63
[2021-07-18 04:33] VITALS: BP 96/56
[2021-07-18] MEDS: HYDROCODONE/ACETAMINOPHEN 5-325 MG TABLET PO PRN ×2 (06:17→19:42)
[2021-07-18] MEDS: ONDANSETRON HCL 4 MG/2 ML VIAL IVP PRN (06:17)
[2021-07-18 07:33] VITALS: BP 103/58
[2021-07-18 08:18] LABS: BASOPHILS % (AUTO) 0.6 % (0.0-2.0); EOSINOPHILS % (AUTO) 1.6 % (1.0-6.0); HEMOGLOBIN 12.3 g/dL (13.5-17.5); LYMPHOCYTES # (AUTO) 0.9 K/uL (1.0-4.8); LYMPHOCYTES % (AUTO) 24.3 % (22.0-44.0); MEAN CORPUSCULAR HEMOGLOBIN 29.8 pg (26.0-34.0); MEAN CORPUSCULAR HGB CONC 33.2 G/dL (31.0-37.0); MEAN CORPUSCULAR VOLUME 90 fL (80-100); MONOCYTES # (AUTO) 0.6 K/uL (0.1-1.0); NEUTROPHILS # (AUTO) 2.3 K/uL (1.8-7.7); NEUTROPHILS % (AUTO) 58.5 % (40.0-70.0); PLATELET COUNT (AUTO) 186 K/uL (150-450); RED BLOOD CELL COUNT(AUTO) 4.11 MIL/uL (4.50-5.90); RED CELL DISTRIBUTION WIDTH 15.4 % (11.5-14.5)
[2021-07-18] MEDS ORDERED: POTASSIUM CHLORIDE 8 MEQ ER TABLET PO SCH (09:00)
[2021-07-18] MEDS: HEPARIN SODIUM,PORCINE 5,000 UNITS/ML VIAL SQ SCH ×2 (09:03→15:27)
[2021-07-18] MEDS: DOCUSATE SODIUM 100 MG CAPSULE PO SCH ×2 (09:04→19:42)
[2021-07-18] MEDS: CARVEDILOL 3.125 MG TABLET PO SCH ×2 (09:04→19:42)
[2021-07-18] MEDS: ASPIRIN 81 MG CHEWABLE TABLET PO SCH (09:04)
[2021-07-18] MEDS: FUROSEMIDE 20 MG/2 ML VIAL IVP SCH (09:04)
[2021-07-18] MEDS: PANTOPRAZOLE SODIUM 40 MG DR TABLET PO SCH (09:04)
[2021-07-18] MEDS: LISINOPRIL 5 MG TABLET PO SCH (09:04)
[2021-07-18] MEDS: LevETIRAcetam 500 MG TABLET PO SCH ×2 (09:05→19:42)
[2021-07-18 09:31] LABS: GLUCOMETER DEV NAME(LOC) 5S.1B; GLUCOSE,POINT OF CARE 81 MG/DL (70-110)
[2021-07-18 11:01] VITALS: BP 105/61
[2021-07-18 15:04] VITALS: BP 97/54
[2021-07-18 19:27] VITALS: BP 102/56
[2021-07-18] MEDS: ATORVASTATIN CALCIUM 40 MG TABLET PO SCH (19:42)
[2021-07-19] MEDS: ZOLPIDEM TARTRATE 5 MG TABLET PO PRN
[2021-07-19] MEDS: ONDANSETRON HCL 4 MG/2 ML VIAL IVP PRN (00:08)
[2021-07-19 00:12] VITALS: BP 107/57
[2021-07-19 03:53] VITALS: BP 103/61
[2021-07-19] MEDS: HYDROCODONE/ACETAMINOPHEN 5-325 MG TABLET PO PRN ×2 (05:12)
[2021-07-19 06:28] LABS: EOSINOPHILS % (AUTO) 1.5 % (1.0-6.0); HEMATOCRIT 38.1 % (41-53); HEMOGLOBIN 12.5 g/dL (13.5-17.5); LYMPHOCYTES % (AUTO) 27.3 % (22.0-44.0); MEAN CORPUSCULAR HEMOGLOBIN 29.4 pg (26.0-34.0); MEAN CORPUSCULAR HGB CONC 32.8 G/dL (31.0-37.0); MEAN CORPUSCULAR VOLUME 90 fL (80-100); MONOCYTES # (AUTO) 0.5 K/uL (0.1-1.0); MONOCYTES % (AUTO) 12.8 % (2.0-9.0); NEUTROPHILS % (AUTO) 57.4 % (40.0-70.0); PLATELET COUNT (AUTO) 199 K/uL (150-450); RED BLOOD CELL COUNT(AUTO) 4.25 MIL/uL (4.50-5.90); RED CELL DISTRIBUTION WIDTH 15.7 % (11.5-14.5)
[2021-07-19 07:38] VITALS: BP 109/61
[2021-07-19] MEDS: LISINOPRIL 5 MG TABLET PO SCH (09:00)
[2021-07-19] MEDS: HEPARIN SODIUM,PORCINE 5,000 UNITS/ML VIAL SQ SCH ×3 (09:29→17:04)
[2021-07-19] MEDS: LevETIRAcetam 500 MG TABLET PO SCH (09:29)
[2021-07-19] MEDS: FUROSEMIDE 20 MG/2 ML VIAL IVP SCH (09:30)
[2021-07-19] MEDS: PANTOPRAZOLE SODIUM 40 MG DR TABLET PO SCH (09:30)
[2021-07-19] MEDS: ASPIRIN 81 MG CHEWABLE TABLET PO SCH (09:30)
[2021-07-19] MEDS: DOCUSATE SODIUM 100 MG CAPSULE PO SCH (09:32)
[2021-07-19] MEDS: CARVEDILOL 3.125 MG TABLET PO SCH (09:33)
[2021-07-19 09:41] VITALS: BP 111/58
[2021-07-19 12:02] VITALS: BP 103/57
[2021-07-19 15:33] VITALS: BP 126/78
== END 2021-07-19 19:20 | DRG 291 ==
LOC: EMS 07:30 → 5S 12:06
PROVIDERS: ADMIT Internal Medicine; ATTEND Internal Medicine
DX: I11.0 Hypertensive heart disease with heart failure (principal); I50.41 Acute combined systolic (congestive) and diastolic (congestive) heart failure; G92.8 Other toxic encephalopathy; E44.0 Moderate protein-calorie malnutrition; F84.0 Autistic disorder; F17.210 Nicotine dependence, cigarettes, uncomplicated; G40.909 Epilepsy, unspecified, not intractable, without status epilepticus; F41.9 Anxiety disorder, unspecified; Z96.659 Presence of unspecified artificial knee joint; Z20.822 Contact with and (suspected) exposure to COVID-19; E78.5 Hyperlipidemia, unspecified; F12.90 Cannabis use, unspecified, uncomplicated; D63.8 Anemia in other chronic diseases classified elsewhere; Z95.0 Presence of cardiac pacemaker; Z68.22 Body mass index [BMI] 22.0-22.9, adult; Z79.899 Other long term (current) drug therapy; Z79.82 Long term (current) use of aspirin; Z95.828 Presence of other vascular implants and grafts
CPT/HCPCS: 36600; 70496; 70498; 71045; 80053; 81001; 82550; 82805; 82962; 83036; 83735; 83880; 84100; 84484; 85025; 85610; 85730; 86850; 86900; 86901; 87081; 92610; 93005; 95816; 97163; 97530; 99285; G0480; J0456; J0696; J0712; J1644; J1940; J2405; J7060; 36415-L1; 36415-TC; 70450; 70450-TC

== ENCOUNTER 2021-07-26 13:01 | Inpatient (IN) | payer MEDICARE, OTHER ==
[~2021-07-26] VITALS: Ht 180.3 cm; Wt 70.8 kg
[~2021-07-26 13:01] MED LIST changes: -AZIT-104 PO; -CEPH500C3 PO
[2021-07-26] MEDS ORDERED: LORazepam 2 MG/ML VIAL ONE (13:18)
[2021-07-26] MEDS ORDERED: IOHEXOL 350 MG/ML 100 ML VIAL ONE (13:56)
[2021-07-26] MEDS ORDERED: SODIUM CHLORIDE 0.9% 100 ML ONE (13:56)
[2021-07-26 14:15] LABS: BASOPHILS % (AUTO) 1.7 % (0.0-2.0); EOSINOPHILS % (AUTO) 3.1 % (1.0-6.0); HEMATOCRIT 37.8 % (41-53); HEMOGLOBIN 12.4 g/dL (13.5-17.5); LYMPHOCYTES # (AUTO) 1.6 K/uL (1.0-4.8); LYMPHOCYTES % (AUTO) 44.8 % (22.0-44.0); MEAN CORPUSCULAR HEMOGLOBIN 29.3 pg (26.0-34.0); MEAN CORPUSCULAR HGB CONC 32.7 G/dL (31.0-37.0); MEAN CORPUSCULAR VOLUME 90 fL (80-100); MONOCYTES # (AUTO) 0.6 K/uL (0.1-1.0); MONOCYTES % (AUTO) 17.4 % (2.0-9.0); NEUTROPHILS # (AUTO) 1.1 K/uL (1.8-7.7); PLATELET COUNT (AUTO) 206 K/uL (150-450); RED BLOOD CELL COUNT(AUTO) 4.21 MIL/uL (4.50-5.90); RED CELL DISTRIBUTION WIDTH 15.7 % (11.5-14.5)
[2021-07-26 14:38] LABS: ALANINE AMINOTRANSFERASE 26 U/L (12-78); ALKALINE PHOSPHATASE 62 U/L (46-116); ANION GAP 6 mmol/L (8-16); ASPARTATE AMINOTRANSFERASE 30 U/L (15-37); BILIRUBIN,TOTAL 0.3 mg/dL (0.1-1.0); CALCIUM, TOTAL 8.5 mg/dL (8.8-10.5); CARBON DIOXIDE 30 mmol/L (22-29); CHLORIDE 100 mmol/L (98-107); CREATININE 1.07 mg/dL (0.60-1.30); POTASSIUM 4.5 mmol/L (3.5-5.1); SODIUM SERUM 136 mmol/L (136-145); TOTAL PROTEIN, SERUM 6.9 g/dL (6.4-8.2); UREA NITROGEN, BLOOD 14 mg/dL (7-18)
[2021-07-26 14:39] LABS: GLOMERULAR FILTR. RATE CALC > 60 mL/min (>60); GLUCOSE,RANDOM 42 mg/dL (70-110)
[2021-07-26] MEDS ORDERED: DEXTROSE 50%-WATER 25 GM/50 ML SYRINGE IVP ONE (14:45)
[2021-07-26 14:51] LABS: INR 1.4 (0.9-1.1); PROTHROMBIN TIME 14.2 SEC (9.4-11.6)
[2021-07-26 14:54] LABS: APPEARANCE,URINE CLEAR (CLEAR); BILIRUBIN,URINE NEGATIVE (NEGATIVE); GLUCOSE, URINE (UA) NEGATIVE (NEGATIVE); KETONES,URINE NEGATIVE (NEGATIVE); LEUKOCYTE ESTERASE ,URINE NEGATIVE (NEGATIVE); NITRATE,URINE NEGATIVE (NEGATIVE); OCCULT BLOOD,URINE NEGATIVE (NEGATIVE); PROTEIN,URINE NEGATIVE (NEGATIVE); SPECIFIC GRAVITIY, URINE 1.022 (1.003-1.030); UROBILINOGEN,URINE <=1.0 mg/dL (<=1.0)
[2021-07-26 15:00] LABS: AMPHET/METH SCREEN,URINE NEGATIVE (NEGATIVE); BARBITURATE SCREEN, URINE NEGATIVE (NEGATIVE); BENZODIAZEPINES SCREEN,URINE NEGATIVE (NEGATIVE); CANNABINOID SCREEN,URINE NEGATIVE (NEGATIVE); COCAINE SCREEN,URINE NEGATIVE (NEGATIVE); METHADONE SCREEN, URINE NEGATIVE (NEGATIVE); OPIATE SCREEN,URINE NEGATIVE (NEGATIVE)
[2021-07-26 15:01] LABS: PHENCYCLIDINE SCREEN,URINE NEGATIVE (NEGATIVE)
[2021-07-26 15:06] LABS: B-TYPE NATRIURETIC PEPTIDE 254 pg/mL (0-100)
[2021-07-26 15:14] LABS: PHENYTOIN (DILANTIN) < 0.5 mcg/mL (10.0-20.0)
[2021-07-26 15:20] LABS: BACTERIA,URINE None Seen /HPF (None Seen); RBC,URINE None Seen /HPF (0-2); WBC,URINE None Seen /HPF (0-5)
[2021-07-26 15:21] LABS: SQUAMOUS EPITHELIAL CELL,UR Few /LPF (None Seen)
[2021-07-26] MEDS ORDERED: SPIR-37 PO (15:30)
[2021-07-26] MEDS ORDERED: PHENYTOIN SODIUM 1,000 MG in SODIUM CHLORIDE 0.9% 150 ML IV ONE (15:30)
[2021-07-26] MEDS ORDERED: FURO40 PO (15:30)
[2021-07-26 15:51] LABS: GLUCOSE,POINT OF CARE 95 MG/DL (70-110)
[2021-07-26 16:21] LABS: GLUCOSE,POINT OF CARE 78 MG/DL (70-110)
[2021-07-26] MEDS ORDERED: ASPIRIN 81 MG CHEWABLE TABLET PO ONE (17:15)
[2021-07-26 17:16] LABS: GLUCOSE,POINT OF CARE 80 MG/DL (70-110)
[2021-07-26] MEDS ORDERED: DEXTROSE 5%-0.45% SODIUM CHL 1,000 ML IV ONE (17:30)
[2021-07-26] MEDS ORDERED: BISACODYL 10 MG RECTAL RECTAL SUPPOSITORY PR PRN (17:30)
[2021-07-26] MEDS ORDERED: HYDROCODONE/ACETAMINOPHEN 5-325 MG TABLET PO PRN (17:30)
[2021-07-26] MEDS ORDERED: MORPHINE SULFATE 2 MG/ML SYRINGE IVP PRN (17:30)
[2021-07-26] MEDS ORDERED: MAGNESIUM HYDROXIDE SUSPENSION 30 ML UDCUP PO PRN (17:30)
[2021-07-26] MEDS ORDERED: ZOLPIDEM TARTRATE 5 MG TABLET PO PRN (17:30)
[2021-07-26] MEDS ORDERED: ACETAMINOPHEN 325 MG TABLET PO PRN (17:30)
[2021-07-26 17:51] LABS: GLUCOSE,POINT OF CARE 114 MG/DL (70-110)
[2021-07-26] MEDS: LevETIRAcetam 500 MG in DEXTROSE 5%-WATER 100 ML IV SCH (18:13)
[2021-07-26] MEDS ORDERED: OXYGEN THERAPY IH SCH (20:00)
[2021-07-26 20:16] LABS: COVID AG,FIA SOURCE NASAL SWAB
[2021-07-26 20:28] VITALS: BP 95/64
[2021-07-26] MEDS: DOCUSATE SODIUM 100 MG CAPSULE PO SCH (21:00)
[2021-07-26] MEDS: CARVEDILOL 3.125 MG TABLET PO SCH (21:00)
[2021-07-26] MEDS: ATORVASTATIN CALCIUM 40 MG TABLET PO SCH (21:00)
[2021-07-26 22:06] LABS: GLUCOMETER DEV NAME(LOC) 5N.1C; GLUCOSE,POINT OF CARE 81 MG/DL (70-110)
[2021-07-27] VITALS (7 sets, daily range): BP systolic 97–108; BP diastolic 60–64
[2021-07-27] MEDS: HEPARIN SODIUM,PORCINE 5,000 UNITS/ML VIAL SQ SCH ×4 (00:26→23:57)
[2021-07-27] MEDS: ONDANSETRON HCL 4 MG/2 ML VIAL IVP PRN ×2 (00:26→11:00)
[2021-07-27] MEDS ORDERED: SODIUM CHLORIDE 0.9% 100 ML ONE ×2 (06:17→13:22)
[2021-07-27] MEDS: LevETIRAcetam 500 MG in DEXTROSE 5%-WATER 100 ML IV SCH ×2 (06:20→17:05)
[2021-07-27 07:12] LABS: BASOPHILS % (AUTO) 2.2 % (0.0-2.0); EOSINOPHILS % (AUTO) 1.7 % (1.0-6.0); HEMOGLOBIN 12.6 g/dL (13.5-17.5); LYMPHOCYTES # (AUTO) 1.2 K/uL (1.0-4.8); MEAN CORPUSCULAR HEMOGLOBIN 29.6 pg (26.0-34.0); MEAN CORPUSCULAR HGB CONC 33.1 G/dL (31.0-37.0); MEAN CORPUSCULAR VOLUME 89 fL (80-100); MONOCYTES # (AUTO) 0.5 K/uL (0.1-1.0); MONOCYTES % (AUTO) 14.8 % (2.0-9.0); NEUTROPHILS # (AUTO) 1.7 K/uL (1.8-7.7); NEUTROPHILS % (AUTO) 47.3 % (40.0-70.0); PLATELET COUNT (AUTO) 205 K/uL (150-450); RED BLOOD CELL COUNT(AUTO) 4.25 MIL/uL (4.50-5.90); RED CELL DISTRIBUTION WIDTH 15.7 % (11.5-14.5)
[2021-07-27 07:43] LABS: ANION GAP 8 mmol/L (8-16); CALCIUM, TOTAL 8.9 mg/dL (8.8-10.5); CARBON DIOXIDE 28 mmol/L (22-29); CHLORIDE 102 mmol/L (98-107); CREATININE 0.91 mg/dL (0.60-1.30); GLUCOSE,RANDOM 90 mg/dL (70-110); POTASSIUM 4.3 mmol/L (3.5-5.1); SODIUM SERUM 138 mmol/L (136-145); UREA NITROGEN, BLOOD 14 mg/dL (7-18)
[2021-07-27 07:45] LABS: GLOMERULAR FILTR. RATE CALC > 60 mL/min (>60)
[2021-07-27 07:55] LABS: GLUCOMETER DEV NAME(LOC) 5N.3; GLUCOSE,POINT OF CARE 70 MG/DL (70-110)
[2021-07-27] MEDS ORDERED: LISINOPRIL 5 MG TABLET PO SCH (09:00)
[2021-07-27] MEDS: DOCUSATE SODIUM 100 MG CAPSULE PO SCH ×3 (09:00→21:08)
[2021-07-27] MEDS: CHOLECALCIFEROL (VIT D3) 1,000 UNITS [25 MCG] TABLET PO SCH (09:30)
[2021-07-27] MEDS: PANTOPRAZOLE SODIUM 40 MG DR TABLET PO SCH (09:30)
[2021-07-27] MEDS: ASPIRIN 81 MG CHEWABLE TABLET PO SCH (09:30)
[2021-07-27] MEDS: SPIRONOLACTONE 25 MG TABLET PO SCH (09:30)
[2021-07-27] MEDS: CARVEDILOL 3.125 MG TABLET PO SCH ×3 (09:30→21:09)
[2021-07-27 10:21] LABS: GLUCOMETER DEV NAME(LOC) 5N.1C; GLUCOSE,POINT OF CARE 92 MG/DL (70-110)
[2021-07-27 11:56] LABS: GLUCOMETER DEV NAME(LOC) 5N.3; GLUCOSE,POINT OF CARE 106 MG/DL (70-110)
[2021-07-27] MEDS ORDERED: IOHEXOL 350 MG/ML 100 ML VIAL ONE (13:22)
[2021-07-27] MEDS: DEXTROSE 5%-0.45% SODIUM CHL 1,000 ML IV SCH (17:28)
[2021-07-27 17:56] LABS: GLUCOMETER DEV NAME(LOC) 5N.1C; GLUCOSE,POINT OF CARE 82 MG/DL (70-110)
[2021-07-27 18:40] LABS: AMPHET/METH SCREEN,URINE NEGATIVE (NEGATIVE); BARBITURATE SCREEN, URINE NEGATIVE (NEGATIVE); BENZODIAZEPINES SCREEN,URINE NEGATIVE (NEGATIVE); CANNABINOID SCREEN,URINE NEGATIVE (NEGATIVE); COCAINE SCREEN,URINE NEGATIVE (NEGATIVE); METHADONE SCREEN, URINE NEGATIVE (NEGATIVE); OPIATE SCREEN,URINE NEGATIVE (NEGATIVE)
[2021-07-27 18:42] LABS: PHENCYCLIDINE SCREEN,URINE NEGATIVE (NEGATIVE)
[2021-07-27] MEDS: ATORVASTATIN CALCIUM 40 MG TABLET PO SCH ×2 (21:00→21:09)
[2021-07-28] VITALS (7 sets, daily range): BP systolic 96–104; BP diastolic 57–65
[2021-07-28 04:21] LABS: GLUCOMETER DEV NAME(LOC) 5S.2B; GLUCOSE,POINT OF CARE 171 MG/DL (70-110)
[2021-07-28 05:51] LABS: GLUCOMETER DEV NAME(LOC) 5S.1B; GLUCOSE,POINT OF CARE 76 MG/DL (70-110)
[2021-07-28] MEDS: LevETIRAcetam 500 MG in DEXTROSE 5%-WATER 100 ML IV SCH (07:33)
[2021-07-28] MEDS: CARVEDILOL 3.125 MG TABLET PO SCH (09:00)
[2021-07-28] MEDS: SPIRONOLACTONE 25 MG TABLET PO SCH (09:00)
[2021-07-28] MEDS ORDERED: FUROSEMIDE 40 MG TABLET PO SCH (09:00)
[2021-07-28] MEDS ORDERED: POTASSIUM CHLORIDE 8 MEQ ER TABLET PO SCH (09:00)
[2021-07-28] MEDS: PANTOPRAZOLE SODIUM 40 MG DR TABLET PO SCH (10:02)
[2021-07-28] MEDS: HEPARIN SODIUM,PORCINE 5,000 UNITS/ML VIAL SQ SCH ×3 (10:04→23:46)
[2021-07-28] MEDS: DOCUSATE SODIUM 100 MG CAPSULE PO SCH ×2 (10:04→20:23)
[2021-07-28] MEDS: CHOLECALCIFEROL (VIT D3) 1,000 UNITS [25 MCG] TABLET PO SCH (10:04)
[2021-07-28] MEDS: ASPIRIN 81 MG CHEWABLE TABLET PO SCH (10:04)
[2021-07-28] MEDS: DEXTROSE 5%-0.45% SODIUM CHL 1,000 ML IV SCH (10:05)
[2021-07-28 13:11] LABS: GLUCOMETER DEV NAME(LOC) 5S.1B; GLUCOSE,POINT OF CARE 164 MG/DL (70-110)
[2021-07-28] MEDS: LevETIRAcetam 750 MG in DEXTROSE 5%-WATER 100 ML IV SCH (17:45)
[2021-07-28 20:06] LABS: GLUCOMETER DEV NAME(LOC) 5S.1B; GLUCOSE,POINT OF CARE 73 MG/DL (70-110)
[2021-07-28] MEDS: ATORVASTATIN CALCIUM 40 MG TABLET PO SCH (20:23)
[2021-07-29] VITALS (9 sets, daily range): BP systolic 93–190; BP diastolic 44–99
[2021-07-29 01:21] LABS: GLUCOMETER DEV NAME(LOC) 5S.2B; GLUCOSE,POINT OF CARE 120 MG/DL (70-110)
[2021-07-29] MEDS: DEXTROSE 5%-0.45% SODIUM CHL 1,000 ML IV SCH ×2 (04:13→20:28)
[2021-07-29] MEDS: LevETIRAcetam 750 MG in DEXTROSE 5%-WATER 100 ML IV SCH ×2 (06:06→17:28)
[2021-07-29 06:36] LABS: GLUCOMETER DEV NAME(LOC) 5S.2B; GLUCOSE,POINT OF CARE 81 MG/DL (70-110)
[2021-07-29] MEDS: CHOLECALCIFEROL (VIT D3) 1,000 UNITS [25 MCG] TABLET PO SCH (08:10)
[2021-07-29] MEDS: PANTOPRAZOLE SODIUM 40 MG DR TABLET PO SCH (08:11)
[2021-07-29] MEDS: ASPIRIN 81 MG CHEWABLE TABLET PO SCH (08:11)
[2021-07-29] MEDS: DOCUSATE SODIUM 100 MG CAPSULE PO SCH ×2 (08:12→20:26)
[2021-07-29] MEDS: HEPARIN SODIUM,PORCINE 5,000 UNITS/ML VIAL SQ SCH ×2 (08:13→16:28)
[2021-07-29 12:21] LABS: GLUCOMETER DEV NAME(LOC) 5S.2B; GLUCOSE,POINT OF CARE 75 MG/DL (70-110)
[2021-07-29 14:37] LABS: MAGNESIUM 2.1 mg/dL (1.80-2.40); PHOSPHORUS 3.4 mg/dL (2.5-4.9)
[2021-07-29 18:16] LABS: GLUCOMETER DEV NAME(LOC) 5S.1B; GLUCOSE,POINT OF CARE 79 MG/DL (70-110)
[2021-07-29] MEDS: CARVEDILOL 3.125 MG TABLET PO SCH (20:27)
[2021-07-29] MEDS: ATORVASTATIN CALCIUM 40 MG TABLET PO SCH (20:27)
[2021-07-30] VITALS (7 sets, daily range): BP systolic 96–109; BP diastolic 52–63
[2021-07-30 00:11] LABS: GLUCOMETER DEV NAME(LOC) 5S.2B; GLUCOSE,POINT OF CARE 97 MG/DL (70-110)
[2021-07-30] MEDS: HEPARIN SODIUM,PORCINE 5,000 UNITS/ML VIAL SQ SCH ×3 (00:56→16:47)
[2021-07-30] MEDS: LevETIRAcetam 750 MG in DEXTROSE 5%-WATER 100 ML IV SCH ×2 (05:38→18:00)
[2021-07-30 05:51] LABS: BASOPHILS % (AUTO) 1.4 % (0.0-2.0); EOSINOPHILS % (AUTO) 1.9 % (1.0-6.0); HEMATOCRIT 36.8 % (41-53); HEMOGLOBIN 12.1 g/dL (13.5-17.5); LYMPHOCYTES # (AUTO) 1.2 K/uL (1.0-4.8); LYMPHOCYTES % (AUTO) 32.9 % (22.0-44.0); MEAN CORPUSCULAR HEMOGLOBIN 29.2 pg (26.0-34.0); MEAN CORPUSCULAR HGB CONC 32.7 G/dL (31.0-37.0); MEAN CORPUSCULAR VOLUME 89 fL (80-100); MONOCYTES # (AUTO) 0.7 K/uL (0.1-1.0); MONOCYTES % (AUTO) 20.1 % (2.0-9.0); NEUTROPHILS # (AUTO) 1.6 K/uL (1.8-7.7); NEUTROPHILS % (AUTO) 43.7 % (40.0-70.0); PLATELET COUNT (AUTO) 193 K/uL (150-450); RED BLOOD CELL COUNT(AUTO) 4.13 MIL/uL (4.50-5.90); RED CELL DISTRIBUTION WIDTH 15.7 % (11.5-14.5)
[2021-07-30 06:11] LABS: ANION GAP 2 mmol/L (8-16); CALCIUM, TOTAL 8.7 mg/dL (8.8-10.5); CARBON DIOXIDE 31 mmol/L (22-29); CHLORIDE 103 mmol/L (98-107); CREATININE 0.96 mg/dL (0.60-1.30); GLUCOSE,RANDOM 78 mg/dL (70-110); POTASSIUM 4.6 mmol/L (3.5-5.1); SODIUM SERUM 136 mmol/L (136-145); UREA NITROGEN, BLOOD 7 mg/dL (7-18)
[2021-07-30 06:12] LABS: GLOMERULAR FILTR. RATE CALC > 60 mL/min (>60)
[2021-07-30 06:14] LABS: B-TYPE NATRIURETIC PEPTIDE 510 pg/mL (0-100)
[2021-07-30 06:41] LABS: GLUCOMETER DEV NAME(LOC) 5S.2B; GLUCOSE,POINT OF CARE 74 MG/DL (70-110)
[2021-07-30] MEDS ORDERED: PHENYLEPHRINE 200 MG/D5%-WATER 0 ML IV ONE (07:24)
[2021-07-30] MEDS ORDERED: LIDOCAINE 2% VISCOUS 15 ML SOLUTION UDCUP ONE (07:31)
[2021-07-30] MEDS ORDERED: MIDAZOLAM HCL 2 MG/2 ML VIAL ONE (08:17)
[2021-07-30] MEDS ORDERED: FentaNYL CITRATE PF 100 MCG/2 ML VIAL ONE (08:17)
[2021-07-30] MEDS ORDERED: MIDAZOLAM HCL 2 MG/2 ML VIAL IVP ONE ×3 (08:30)
[2021-07-30] MEDS ORDERED: FentaNYL CITRATE PF 100 MCG/2 ML VIAL IVP ONE ×3 (08:30)
[2021-07-30] MEDS ORDERED: SODIUM CHLORIDE 0.9% 500 ML IV ONE (08:30)
[2021-07-30] MEDS ORDERED: FUROSEMIDE 20 MG TABLET PO SCH (09:00)
[2021-07-30] MEDS ORDERED: MULTIVITAMINS WITH MINERALS, THERAPEUTIC TABLET PO SCH (09:00)
[2021-07-30] MEDS ORDERED: LIDOCAINE 2% VISCOUS 15 ML SOLUTION UDCUP PO ONE (09:00)
[2021-07-30] MEDS ORDERED: SPIRONOLACTONE 25 MG TABLET PO SCH (09:00)
[2021-07-30] MEDS ORDERED: SACUBITRIL/VALSARTAN 24-26 MG TABLET PO SCH (09:00)
[2021-07-30] MEDS: PANTOPRAZOLE SODIUM 40 MG DR TABLET PO SCH (10:28)
[2021-07-30] MEDS: ASPIRIN 81 MG CHEWABLE TABLET PO SCH (10:29)
[2021-07-30] MEDS: CARVEDILOL 3.125 MG TABLET PO SCH (10:30)
[2021-07-30] MEDS: CHOLECALCIFEROL (VIT D3) 1,000 UNITS [25 MCG] TABLET PO SCH (10:30)
[2021-07-30] MEDS: DOCUSATE SODIUM 100 MG CAPSULE PO SCH (10:30)
[2021-07-30 11:51] LABS: GLUCOMETER DEV NAME(LOC) 5S.2B; GLUCOSE,POINT OF CARE 83 MG/DL (70-110)
[2021-07-30] MEDS ORDERED: LEVE750T4 PO (15:54)
[2021-07-30] MEDS ORDERED: MULT-1192 PO (15:56)
[2021-07-30] MEDS ORDERED: PANT-31 PO (15:57)
[2021-07-30] MEDS ORDERED: SACU1TAB PO (16:00)
[2021-07-30] MEDS ORDERED: FURO20 PO (16:03)
[2021-08-01 04:56] LABS: GLUCOMETER DEV NAME(LOC) 5S.1B; GLUCOSE,POINT OF CARE 83 MG/DL (70-110)
[2021-08-01 04:56] LABS: GLUCOMETER DEV NAME(LOC) 5S.1B; GLUCOSE,POINT OF CARE 70 MG/DL (70-110)
== END 2021-07-30 19:30 | DRG 100 ==
LOC: EMS 13:01 → 5N 17:21 → 5S 19:09
PROVIDERS: ADMIT Internal Medicine; ATTEND Internal Medicine
DX: G40.909 Epilepsy, unspecified, not intractable, without status epilepticus (principal); G93.41 Metabolic encephalopathy; E43 Unspecified severe protein-calorie malnutrition; E87.3 Alkalosis; F84.0 Autistic disorder; I42.9 Cardiomyopathy, unspecified; I50.22 Chronic systolic (congestive) heart failure; J98.11 Atelectasis; E16.2 Hypoglycemia, unspecified; E78.5 Hyperlipidemia, unspecified; F17.210 Nicotine dependence, cigarettes, uncomplicated; H55.00 Unspecified nystagmus; Z96.659 Presence of unspecified artificial knee joint; I08.3 Combined rheumatic disorders of mitral, aortic and tricuspid valves; Z20.822 Contact with and (suspected) exposure to COVID-19; I11.0 Hypertensive heart disease with heart failure; Z79.82 Long term (current) use of aspirin; Z78.1 Physical restraint status; Z68.21 Body mass index [BMI] 21.0-21.9, adult; Z86.73 Personal history of transient ischemic attack (TIA), and cerebral infarction without residual deficits; Z79.899 Other long term (current) drug therapy; Z91.81 History of falling; Z95.810 Presence of automatic (implantable) cardiac defibrillator
CPT/HCPCS: 70496; 70498; 71045; 80048; 80053; 80185; 80307; 81001; 82948; 82962; 83735; 83880; 84100; 84484; 85025; 85610; 85730; 86850; 86900; 86901; 87081; 92610; 93005; 97163; 99291; J0712; J1165; J1644; J2060; J2250; J2270; J2370; J2405; J3010; J7040; J7050; J7060; Q9967; 36415-L1; 36415-TC; 70450; 70450-TC

== ENCOUNTER 2021-09-06 22:22 | Inpatient (IN) | payer MEDICARE, OTHER ==
[~2021-09-06] VITALS: Ht 180.3 cm; Wt 75.4 kg
[~2021-09-06 22:22] MED LIST changes: -CHOL-35 PO; +CHOL25TA4 PO; -LEVE500T20 PO; +LEVE750T4 PO; -LISI-892 PO; +MULT-1192 PO; +PANT-31 PO; -POTA8TAB71 PO; +SACU1TAB PO; +SPIR-37 PO
[2021-09-07] MEDS ORDERED: CARV3 PO (00:35)
[2021-09-07] MEDS ORDERED: LEVE250T4 PO (00:35)
[2021-09-07] MEDS ORDERED: ACET-784 PO (00:35)
[2021-09-07] MEDS ORDERED: MULT-413 PO (00:35)
[2021-09-07 01:10] LABS: COVID AG,FIA SOURCE NASAL SWAB
[2021-09-07 01:32] LABS: INFLUENZA TYPE A NEGATIVE FOR TYPE A (NEGATIVE); INFLUENZA TYPE B NEGATIVE FOR TYPE B (NEGATIVE)
[2021-09-07 01:43] LABS: EOSINOPHILS % (AUTO) 1.3 % (1.0-6.0); HEMATOCRIT 36.5 % (41-53); HEMOGLOBIN 12.2 g/dL (13.5-17.5); LYMPHOCYTES # (AUTO) 1.2 K/uL (1.0-4.8); LYMPHOCYTES % (AUTO) 18.1 % (22.0-44.0); MEAN CORPUSCULAR HEMOGLOBIN 29.4 pg (26.0-34.0); MEAN CORPUSCULAR HGB CONC 33.4 G/dL (31.0-37.0); MEAN CORPUSCULAR VOLUME 88 fL (80-100); MONOCYTES # (AUTO) 0.8 K/uL (0.1-1.0); NEUTROPHILS # (AUTO) 4.6 K/uL (1.8-7.7); NEUTROPHILS % (AUTO) 67.6 % (40.0-70.0); PLATELET COUNT (AUTO) 254 K/uL (150-450); RED BLOOD CELL COUNT(AUTO) 4.14 MIL/uL (4.50-5.90); RED CELL DISTRIBUTION WIDTH 14.8 % (11.5-14.5)
[2021-09-07 01:50] LABS: GLUCOMETER DEV NAME(LOC) ERT.5; GLUCOSE,POINT OF CARE 100 MG/DL (70-110)
[2021-09-07 01:54] LABS: ANION GAP 6 mmol/L (8-16); CALCIUM, TOTAL 8.7 mg/dL (8.8-10.5); CARBON DIOXIDE 27 mmol/L (22-29); CHLORIDE 106 mmol/L (98-107); CREATININE 0.89 mg/dL (0.60-1.30); GLUCOSE,RANDOM 99 mg/dL (70-110); POTASSIUM 3.6 mmol/L (3.5-5.1); SODIUM SERUM 139 mmol/L (136-145); UREA NITROGEN, BLOOD 12 mg/dL (7-18)
[2021-09-07 01:55] LABS: GLOMERULAR FILTR. RATE CALC > 60 mL/min (>60)
[2021-09-07 02:02] LABS: ALANINE AMINOTRANSFERASE 12 U/L (12-78); ALBUMIN 2.9 g/dL (3.4-5.0); ALKALINE PHOSPHATASE 75 U/L (46-116); ASPARTATE AMINOTRANSFERASE 15 U/L (15-37); BILIRUBIN,TOTAL 0.4 mg/dL (0.1-1.0); TOTAL PROTEIN, SERUM 6.9 g/dL (6.4-8.2)
[2021-09-07] MEDS ORDERED: AZITHROMYCIN 500 MG/NS 250 ML IV ONE (02:45)
[2021-09-07] MEDS ORDERED: CefTRIAXone 1 GM/DEXTROSE 50 ML IV ONE (02:45)
[2021-09-07] MEDS ORDERED: ONDANSETRON HCL 4 MG/2 ML VIAL IVP PRN ×2 (03:00→04:00)
[2021-09-07] MEDS ORDERED: 0.9% SODIUM CHLORIDE 10 ML SYRINGE IVP PRN (03:00)
[2021-09-07] MEDS ORDERED: ACETAMINOPHEN 325 MG TABLET PO PRN (03:00)
[2021-09-07] MEDS ORDERED: ALBUTEROL SULFATE 2.5 MG/0.5 ML NEB SOLUTION NEB PRN (04:00)
[2021-09-07] MEDS ORDERED: IPRATROPIUM BROMIDE 0.5 MG/2.5 ML NEB SOLUTION NEB PRN (04:00)
[2021-09-07] MEDS ORDERED: VANCOMYCIN HCL 1.25 GM in DEXTROSE 5%-WATER 250 ML IV ONE (08:00)
[2021-09-07 08:26] VITALS: BP 126/80
[2021-09-07] MEDS ORDERED: SODIUM CHLORIDE 0.9% 1,000 ML ONE (08:33)
[2021-09-07] MEDS: HEPARIN SODIUM,PORCINE 5,000 UNITS/ML VIAL SQ SCH ×3 (08:36→23:06)
[2021-09-07] MEDS: SACUBITRIL/VALSARTAN 24-26 MG TABLET PO SCH ×2 (08:37→20:21)
[2021-09-07] MEDS: LevETIRAcetam 250 MG TABLET PO SCH ×2 (08:37→20:21)
[2021-09-07] MEDS: CARVEDILOL 3.125 MG TABLET PO SCH ×2 (08:37→20:21)
[2021-09-07] MEDS: ASPIRIN 81 MG CHEWABLE TABLET PO SCH (08:37)
[2021-09-07] MEDS: MULTIVITAMINS, THERAPEUTIC TABLET PO SCH (08:38)
[2021-09-07] MEDS: CHOLECALCIFEROL (VIT D3) 1,000 UNITS [25 MCG] TABLET PO SCH (08:38)
[2021-09-07] MEDS: SPIRONOLACTONE 25 MG TABLET PO SCH (08:38)
[2021-09-07] MEDS: FUROSEMIDE 20 MG TABLET PO SCH (08:39)
[2021-09-07] MEDS: PANTOPRAZOLE SODIUM 40 MG DR TABLET PO SCH (08:39)
[2021-09-07] MEDS: PIPERACILLIN/TAZO 3.375 GM/D5W 50 ML IV SCH ×3 (10:00→22:56)
[2021-09-07 11:13] VITALS: BP 114/65
[2021-09-07] MEDS: ACETAMINOPHEN 325 MG TABLET PO PRN ×2 (14:43→20:21)
[2021-09-07] MEDS ORDERED: GuaiFENesin/D-METHORPHAN [SUGAR-FREE] 200-20MG/10 ML SYRUP UDCUP PO PRN (14:45)
[2021-09-07 14:51] VITALS: BP 130/81
[2021-09-07 19:46] VITALS: BP 103/58
[2021-09-07] MEDS: ATORVASTATIN CALCIUM 40 MG TABLET PO SCH (20:21)
[2021-09-07] MEDS: VANCOMYCIN 1GM/WATER(PEG/NADA) 200 ML IV SCH (20:26)
[2021-09-08] VITALS (7 sets, daily range): BP systolic 99–116; BP diastolic 53–67
[2021-09-08] MEDS: PIPERACILLIN/TAZO 3.375 GM/D5W 50 ML IV SCH ×4 (04:06→22:53)
[2021-09-08] MEDS: ACETAMINOPHEN 325 MG TABLET PO PRN ×2 (04:06→09:16)
[2021-09-08 05:58] LABS: ANION GAP 11 mmol/L (8-16); CALCIUM, TOTAL 8.5 mg/dL (8.8-10.5); CARBON DIOXIDE 28 mmol/L (22-29); CHLORIDE 103 mmol/L (98-107); CREATININE 0.85 mg/dL (0.60-1.30); GLOMERULAR FILTR. RATE CALC > 60 mL/min (>60); GLUCOSE,RANDOM 89 mg/dL (70-110); POTASSIUM 4.3 mmol/L (3.5-5.1); SODIUM SERUM 142 mmol/L (136-145); UREA NITROGEN, BLOOD 8 mg/dL (7-18)
[2021-09-08] MEDS: HEPARIN SODIUM,PORCINE 5,000 UNITS/ML VIAL SQ SCH ×3 (09:09→23:24)
[2021-09-08] MEDS: SACUBITRIL/VALSARTAN 24-26 MG TABLET PO SCH ×2 (09:10→20:28)
[2021-09-08] MEDS: ASPIRIN 81 MG CHEWABLE TABLET PO SCH (09:11)
[2021-09-08] MEDS: SPIRONOLACTONE 25 MG TABLET PO SCH (09:11)
[2021-09-08] MEDS: CARVEDILOL 3.125 MG TABLET PO SCH ×2 (09:11→20:28)
[2021-09-08] MEDS: MULTIVITAMINS, THERAPEUTIC TABLET PO SCH (09:12)
[2021-09-08] MEDS: FUROSEMIDE 20 MG TABLET PO SCH (09:12)
[2021-09-08] MEDS: LevETIRAcetam 250 MG TABLET PO SCH ×2 (09:12→20:28)
[2021-09-08] MEDS: PANTOPRAZOLE SODIUM 40 MG DR TABLET PO SCH (09:12)
[2021-09-08] MEDS: CHOLECALCIFEROL (VIT D3) 1,000 UNITS [25 MCG] TABLET PO SCH (09:12)
[2021-09-08] MEDS: NICOTINE 14 MG/24 HOUR PATCH TD SCH (09:13)
[2021-09-08] MEDS: VANCOMYCIN 1GM/WATER(PEG/NADA) 200 ML IV SCH ×2 (09:40→20:30)
[2021-09-08] MEDS: ATORVASTATIN CALCIUM 40 MG TABLET PO SCH (20:28)
[2021-09-09] MEDS: PIPERACILLIN/TAZO 3.375 GM/D5W 50 ML IV SCH ×4 (03:43→21:52)
[2021-09-09] MEDS: ACETAMINOPHEN 325 MG TABLET PO PRN ×2 (03:43→10:17)
[2021-09-09 05:39] VITALS: BP 103/57
[2021-09-09] MEDS: SPIRONOLACTONE 25 MG TABLET PO SCH (07:54)
[2021-09-09] MEDS: MULTIVITAMINS, THERAPEUTIC TABLET PO SCH (07:54)
[2021-09-09] MEDS: SACUBITRIL/VALSARTAN 24-26 MG TABLET PO SCH ×2 (07:54→20:18)
[2021-09-09] MEDS: ASPIRIN 81 MG CHEWABLE TABLET PO SCH (07:54)
[2021-09-09] MEDS: FUROSEMIDE 20 MG TABLET PO SCH (07:54)
[2021-09-09] MEDS: PANTOPRAZOLE SODIUM 40 MG DR TABLET PO SCH (07:54)
[2021-09-09] MEDS: CHOLECALCIFEROL (VIT D3) 1,000 UNITS [25 MCG] TABLET PO SCH (07:55)
[2021-09-09] MEDS: CARVEDILOL 3.125 MG TABLET PO SCH ×2 (07:55→20:18)
[2021-09-09] MEDS: NICOTINE 14 MG/24 HOUR PATCH TD SCH (07:55)
[2021-09-09] MEDS: LevETIRAcetam 250 MG TABLET PO SCH ×2 (07:56→20:18)
[2021-09-09] MEDS: HEPARIN SODIUM,PORCINE 5,000 UNITS/ML VIAL SQ SCH ×3 (07:56→23:30)
[2021-09-09] MEDS: VANCOMYCIN 1GM/WATER(PEG/NADA) 200 ML IV SCH ×2 (07:56→20:18)
[2021-09-09 08:17] VITALS: BP 108/51
[2021-09-09 10:29] LABS: ANION GAP 8 mmol/L (8-16); CARBON DIOXIDE 29 mmol/L (22-29); CHLORIDE 103 mmol/L (98-107); CREATININE 0.95 mg/dL (0.60-1.30); GLUCOSE,RANDOM 123 mg/dL (70-110); POTASSIUM 4.3 mmol/L (3.5-5.1); SODIUM SERUM 140 mmol/L (136-145); UREA NITROGEN, BLOOD 9 mg/dL (7-18); VANCOMYCIN,RANDOM 35.4 mcg/mL (25.0-50.0)
[2021-09-09 10:30] LABS: GLOMERULAR FILTR. RATE CALC > 60 mL/min (>60)
[2021-09-09 12:27] VITALS: BP 102/55
[2021-09-09 16:20] VITALS: BP 107/54
[2021-09-09 20:00] VITALS: BP 100/63
[2021-09-09] MEDS: ATORVASTATIN CALCIUM 40 MG TABLET PO SCH (20:18)
[2021-09-10 00:40] VITALS: BP 109/64
[2021-09-10] MEDS: PIPERACILLIN/TAZO 3.375 GM/D5W 50 ML IV SCH ×2 (04:47→10:00)
[2021-09-10 04:51] VITALS: BP 110/60
[2021-09-10 06:41] LABS: ANION GAP 8 mmol/L (8-16); CALCIUM, TOTAL 9.3 mg/dL (8.8-10.5); CARBON DIOXIDE 30 mmol/L (22-29); CHLORIDE 102 mmol/L (98-107); CREATININE 0.87 mg/dL (0.60-1.30); GLUCOSE,RANDOM 114 mg/dL (70-110); POTASSIUM 4.3 mmol/L (3.5-5.1); SODIUM SERUM 140 mmol/L (136-145); UREA NITROGEN, BLOOD 10 mg/dL (7-18); VANCOMYCIN,RANDOM 19.9 mcg/mL (25.0-50.0)
[2021-09-10 06:45] LABS: GLOMERULAR FILTR. RATE CALC > 60 mL/min (>60)
[2021-09-10 07:57] VITALS: BP 115/61
[2021-09-10] MEDS: HEPARIN SODIUM,PORCINE 5,000 UNITS/ML VIAL SQ SCH (09:00)
[2021-09-10] MEDS: CHOLECALCIFEROL (VIT D3) 1,000 UNITS [25 MCG] TABLET PO SCH (09:00)
[2021-09-10] MEDS: VANCOMYCIN 1GM/WATER(PEG/NADA) 200 ML IV SCH (09:00)
[2021-09-10] MEDS: NICOTINE 14 MG/24 HOUR PATCH TD SCH (09:01)
[2021-09-10] MEDS: PANTOPRAZOLE SODIUM 40 MG DR TABLET PO SCH (09:01)
[2021-09-10] MEDS: ASPIRIN 81 MG CHEWABLE TABLET PO SCH (09:01)
[2021-09-10] MEDS: LevETIRAcetam 250 MG TABLET PO SCH (09:01)
[2021-09-10] MEDS: CARVEDILOL 3.125 MG TABLET PO SCH (09:01)
[2021-09-10] MEDS: MULTIVITAMINS, THERAPEUTIC TABLET PO SCH (09:01)
[2021-09-10] MEDS: SACUBITRIL/VALSARTAN 24-26 MG TABLET PO SCH (09:01)
[2021-09-10] MEDS: FUROSEMIDE 20 MG TABLET PO SCH (09:01)
[2021-09-10] MEDS: SPIRONOLACTONE 25 MG TABLET PO SCH (09:02)
[2021-09-10] MEDS ORDERED: LEVO750T68 PO (10:18)
[2021-09-10] MEDS ORDERED: GUAIFDM PO (10:18)
[2021-09-10 11:27] VITALS: BP 113/69
== END 2021-09-10 15:05 | disposition home or self-care (01) | DRG 194 ==
LOC: EMS 22:29 → 5S 09-07 05:00 → 5N 09-07 20:00
PROVIDERS: ADMIT Internal Medicine; ATTEND Internal Medicine
DX: J18.9 Pneumonia, unspecified organism (principal); F84.0 Autistic disorder; I50.22 Chronic systolic (congestive) heart failure; E78.5 Hyperlipidemia, unspecified; G40.909 Epilepsy, unspecified, not intractable, without status epilepticus; I11.0 Hypertensive heart disease with heart failure; Y95 Nosocomial condition; Z20.822 Contact with and (suspected) exposure to COVID-19; F17.210 Nicotine dependence, cigarettes, uncomplicated; Z96.659 Presence of unspecified artificial knee joint; Z79.899 Other long term (current) drug therapy; Z82.49 Family history of ischemic heart disease and other diseases of the circulatory system
CPT/HCPCS: 71045; 80048; 80053; 80202; 82962; 83880; 84484; 85025; 87040; 87081; 87804; 93005; 99285; J0456; J0696; J1644; J2405; J2543; J3370; J7030; J7060; Q9967; 36415-L1; 36415-TC; U0003

== ENCOUNTER 2021-10-01 20:19 | Inpatient (IN) | payer MEDICARE, OTHER ==
[~2021-10-01] VITALS: Ht 180.3 cm; Wt 70.3 kg
[~2021-10-01 20:19] MED LIST changes: +ACET-784 PO; +GUAIFDM PO; +LEVE250T4 PO; -LEVE750T4 PO; +LEVO750T68 PO
[2021-10-01] MEDS ORDERED: ONDANSETRON HCL 4 MG/2 ML VIAL IVP ONE (20:45)
[2021-10-01 22:00] LABS: BASOPHILS % (AUTO) 1.3 % (0.0-2.0); EOSINOPHILS % (AUTO) 0.9 % (1.0-6.0); HEMATOCRIT 35.7 % (41-53); HEMOGLOBIN 11.7 g/dL (13.5-17.5); LYMPHOCYTES # (AUTO) 1.5 K/uL (1.0-4.8); LYMPHOCYTES % (AUTO) 30.4 % (22.0-44.0); MEAN CORPUSCULAR HEMOGLOBIN 29.1 pg (26.0-34.0); MEAN CORPUSCULAR HGB CONC 32.9 G/dL (31.0-37.0); MEAN CORPUSCULAR VOLUME 89 fL (80-100); MONOCYTES # (AUTO) 0.6 K/uL (0.1-1.0); MONOCYTES % (AUTO) 12.4 % (2.0-9.0); NEUTROPHILS # (AUTO) 2.8 K/uL (1.8-7.7); PLATELET COUNT (AUTO) 243 K/uL (150-450); RED BLOOD CELL COUNT(AUTO) 4.03 MIL/uL (4.50-5.90); RED CELL DISTRIBUTION WIDTH 15.5 % (11.5-14.5)
[2021-10-01 22:14] LABS: COVID AG,FIA SOURCE NASAL SWAB
[2021-10-01 22:54] LABS: ANION GAP 12 mmol/L (8-16); CALCIUM, TOTAL 9.6 mg/dL (8.8-10.5); CARBON DIOXIDE 24 mmol/L (22-29); CHLORIDE 106 mmol/L (98-107); CREATININE 1.11 mg/dL (0.60-1.30); GLUCOSE,RANDOM 91 mg/dL (70-110); POTASSIUM 4.2 mmol/L (3.5-5.1); SODIUM SERUM 142 mmol/L (136-145); UREA NITROGEN, BLOOD 25 mg/dL (7-18)
[2021-10-01 22:55] LABS: GLOMERULAR FILTR. RATE CALC > 60 mL/min (>60)
[2021-10-01 23:00] LABS: ALANINE AMINOTRANSFERASE 33 U/L (12-78); ALBUMIN 3.4 g/dL (3.4-5.0); ALKALINE PHOSPHATASE 92 U/L (46-116); ASPARTATE AMINOTRANSFERASE 28 U/L (15-37); BILIRUBIN,TOTAL 0.9 mg/dL (0.1-1.0); LIPASE 32 U/L (73-393); TOTAL PROTEIN, SERUM 7.5 g/dL (6.4-8.2)
[2021-10-01 23:04] LABS: B-TYPE NATRIURETIC PEPTIDE 608 pg/mL (0-100)
[2021-10-01 23:17] LABS: INFLUENZA TYPE A NEGATIVE FOR TYPE A (NEGATIVE); INFLUENZA TYPE B NEGATIVE FOR TYPE B (NEGATIVE)
[2021-10-01] MEDS ORDERED: GuaiFENesin/D-METHORPHAN [SUGAR-FREE] 200-20MG/10 ML SYRUP UDCUP PO PRN (23:30)
[2021-10-01] MEDS ORDERED: FUROSEMIDE 40 MG/4 ML VIAL IVP ONE (23:30)
[2021-10-01] MEDS ORDERED: AZITHROMYCIN 500 MG/NS 250 ML IV ONE (23:30)
[2021-10-01] MEDS ORDERED: CefTRIAXone 1 GM/DEXTROSE 50 ML IV ONE (23:30)
[2021-10-02 00:15] LABS: APPEARANCE,URINE CLEAR (CLEAR); BILIRUBIN,URINE NEGATIVE (NEGATIVE); GLUCOSE, URINE (UA) NEGATIVE (NEGATIVE); KETONES,URINE NEGATIVE (NEGATIVE); LEUKOCYTE ESTERASE ,URINE NEGATIVE (NEGATIVE); NITRATE,URINE NEGATIVE (NEGATIVE); OCCULT BLOOD,URINE MODERATE (NEGATIVE); PH,URINE 5.5 (5.0-8.0); PROTEIN,URINE 30-70 mg/dL (NEGATIVE); SPECIFIC GRAVITIY, URINE 1.032 (1.003-1.030); UROBILINOGEN,URINE <=1.0 mg/dL (<=1.0)
[2021-10-02 01:16] LABS: WBC,URINE 0-2 /HPF (0-5)
[2021-10-02 01:17] LABS: RBC,URINE 0-2 /HPF (0-2)
[2021-10-02 01:18] LABS: BACTERIA,URINE Rare /HPF (None Seen)
[2021-10-02 01:30] VITALS: BP 109/72
[2021-10-02 04:29] VITALS: BP 107/81
[2021-10-02 07:53] VITALS: BP 111/70
[2021-10-02] MEDS ORDERED: FUROSEMIDE 20 MG TABLET PO SCH (09:00)
[2021-10-02] MEDS: FUROSEMIDE 20 MG/2 ML VIAL IVP SCH ×2 (09:50→21:00)
[2021-10-02] MEDS: ASPIRIN 81 MG CHEWABLE TABLET PO SCH (09:51)
[2021-10-02] MEDS: CARVEDILOL 3.125 MG TABLET PO SCH ×2 (09:51→20:17)
[2021-10-02] MEDS: SPIRONOLACTONE 25 MG TABLET PO SCH (09:51)
[2021-10-02] MEDS: PANTOPRAZOLE SODIUM 40 MG DR TABLET PO SCH (09:51)
[2021-10-02] MEDS: CHOLECALCIFEROL (VIT D3) 1,000 UNITS [25 MCG] TABLET PO SCH (09:51)
[2021-10-02] MEDS: MULTIVITAMINS, THERAPEUTIC TABLET PO SCH (09:51)
[2021-10-02] MEDS: LevETIRAcetam 250 MG TABLET PO SCH ×2 (09:52→20:23)
[2021-10-02] MEDS: SACUBITRIL/VALSARTAN 24-26 MG TABLET PO SCH ×2 (09:52→20:17)
[2021-10-02 11:27] VITALS: BP 104/57
[2021-10-02 16:13] VITALS: BP 95/63
[2021-10-02 19:35] LABS: TOTAL PROTEIN, SERUM 6.9 g/dL (6.4-8.2)
[2021-10-02 19:45] VITALS: BP 100/63
[2021-10-02] MEDS: ATORVASTATIN CALCIUM 40 MG TABLET PO SCH (20:23)
[2021-10-02] MEDS: HEPARIN SODIUM,PORCINE 5,000 UNITS/ML VIAL SQ SCH (20:24)
[2021-10-02] MEDS: NICOTINE 7 MG/24 HOUR PATCH TD SCH (20:24)
[2021-10-03 00:15] VITALS: BP 101/71
[2021-10-03] MEDS: CefTRIAXone 1 GM/DEXTROSE 50 ML IV SCH ×2 (01:00→23:29)
[2021-10-03] MEDS ORDERED: SODIUM CHLORIDE 0.9% 250 ML IV ONE (01:03)
[2021-10-03 03:35] VITALS: BP 100/88
[2021-10-03] MEDS ORDERED: MORPHINE SULFATE 2 MG/ML SYRINGE IVP ONE (03:45)
[2021-10-03 07:16] VITALS: BP 106/68
[2021-10-03] MEDS: SPIRONOLACTONE 25 MG TABLET PO SCH (08:27)
[2021-10-03] MEDS: FUROSEMIDE 20 MG/2 ML VIAL IVP SCH ×2 (08:27→20:19)
[2021-10-03] MEDS: SACUBITRIL/VALSARTAN 24-26 MG TABLET PO SCH ×2 (08:28→20:19)
[2021-10-03] MEDS: ASPIRIN 81 MG CHEWABLE TABLET PO SCH (08:28)
[2021-10-03] MEDS: CARVEDILOL 3.125 MG TABLET PO SCH ×2 (08:28→20:19)
[2021-10-03] MEDS: LevETIRAcetam 250 MG TABLET PO SCH ×2 (08:29→20:19)
[2021-10-03] MEDS: PANTOPRAZOLE SODIUM 40 MG DR TABLET PO SCH (08:29)
[2021-10-03] MEDS: CHOLECALCIFEROL (VIT D3) 1,000 UNITS [25 MCG] TABLET PO SCH (08:29)
[2021-10-03] MEDS: MULTIVITAMINS, THERAPEUTIC TABLET PO SCH (08:29)
[2021-10-03] MEDS: HEPARIN SODIUM,PORCINE 5,000 UNITS/ML VIAL SQ SCH ×2 (08:30→20:19)
[2021-10-03] MEDS: NICOTINE 7 MG/24 HOUR PATCH TD SCH (08:31)
[2021-10-03 11:47] VITALS: BP 99/62
[2021-10-03] MEDS ORDERED: ONDANSETRON HCL 4 MG/2 ML VIAL IVP PRN (12:30)
[2021-10-03 15:11] VITALS: BP 106/66
[2021-10-03 20:12] VITALS: BP 129/75
[2021-10-03] MEDS: ATORVASTATIN CALCIUM 40 MG TABLET PO SCH (20:19)
[2021-10-04] VITALS (8 sets, daily range): BP systolic 86–110; BP diastolic 54–65
[2021-10-04] MEDS: FUROSEMIDE 20 MG/2 ML VIAL IVP SCH ×2 (08:28→20:39)
[2021-10-04] MEDS: MULTIVITAMINS, THERAPEUTIC TABLET PO SCH (08:29)
[2021-10-04] MEDS: CHOLECALCIFEROL (VIT D3) 1,000 UNITS [25 MCG] TABLET PO SCH (08:29)
[2021-10-04] MEDS: SPIRONOLACTONE 25 MG TABLET PO SCH (08:29)
[2021-10-04] MEDS: ASPIRIN 81 MG CHEWABLE TABLET PO SCH (08:29)
[2021-10-04] MEDS: LevETIRAcetam 250 MG TABLET PO SCH ×2 (08:30→20:40)
[2021-10-04] MEDS: NICOTINE 7 MG/24 HOUR PATCH TD SCH (08:30)
[2021-10-04] MEDS: HEPARIN SODIUM,PORCINE 5,000 UNITS/ML VIAL SQ SCH ×2 (08:30→20:40)
[2021-10-04] MEDS: PANTOPRAZOLE SODIUM 40 MG DR TABLET PO SCH (08:31)
[2021-10-04] MEDS: SACUBITRIL/VALSARTAN 24-26 MG TABLET PO SCH ×2 (08:31→21:00)
[2021-10-04] MEDS: CARVEDILOL 3.125 MG TABLET PO SCH ×2 (08:31→21:00)
[2021-10-04 11:18] LABS: INR 1.4 (0.9-1.1); PROTHROMBIN TIME 15.1 SEC (9.4-11.6)
[2021-10-04] MEDS ORDERED: LIDOCAINE/PF 1% 5 ML VIAL ONE ×2 (12:34→13:00)
[2021-10-04] MEDS: ATORVASTATIN CALCIUM 40 MG TABLET PO SCH (20:41)
[2021-10-04] MEDS ORDERED: SODIUM CHLORIDE 0.9% 500 ML IV ONE (23:28)
[2021-10-04] MEDS: CefTRIAXone 1 GM/DEXTROSE 50 ML IV SCH (23:30)
[2021-10-05 03:54] VITALS: BP 90/52
[2021-10-05 07:43] VITALS: BP 100/62
[2021-10-05] MEDS: SPIRONOLACTONE 25 MG TABLET PO SCH (09:36)
[2021-10-05] MEDS: ASPIRIN 81 MG CHEWABLE TABLET PO SCH (09:36)
[2021-10-05] MEDS: CHOLECALCIFEROL (VIT D3) 1,000 UNITS [25 MCG] TABLET PO SCH (09:37)
[2021-10-05] MEDS: CARVEDILOL 3.125 MG TABLET PO SCH ×2 (09:37→21:00)
[2021-10-05] MEDS: MULTIVITAMINS, THERAPEUTIC TABLET PO SCH (09:37)
[2021-10-05] MEDS: LevETIRAcetam 250 MG TABLET PO SCH ×2 (09:38→20:13)
[2021-10-05] MEDS: PANTOPRAZOLE SODIUM 40 MG DR TABLET PO SCH (09:39)
[2021-10-05] MEDS: SACUBITRIL/VALSARTAN 24-26 MG TABLET PO SCH ×2 (09:39→21:00)
[2021-10-05] MEDS: NICOTINE 7 MG/24 HOUR PATCH TD SCH (09:40)
[2021-10-05] MEDS: HEPARIN SODIUM,PORCINE 5,000 UNITS/ML VIAL SQ SCH ×2 (09:43→20:14)
[2021-10-05] MEDS: FUROSEMIDE 20 MG/2 ML VIAL IVP SCH (09:43)
[2021-10-05 11:35] VITALS: BP 89/57
[2021-10-05 12:37] LABS: SPECIMENTYPE,BODY FLUID PLEURAL
[2021-10-05 13:38] LABS: APPEARANCE,SPUN,BODY FLUID CLEAR (CLEAR); APPEARANCE,UNSPUN,BODY FLUID CLOUDY (CLEAR)
[2021-10-05 13:39] LABS: COLOR,BODY FLUID AMBER (LT YELLOW); TOTAL VOLUME,BODY FLUID 650 mL; WBC, BODY FLUID 11 /cu. mm.
[2021-10-05 13:40] LABS: BASOPHILS,BODY FLUID 0 %; EOSINOPHILS,BF (ANAL) 0 %; LYMPHOCYTES,BODY FLUID 82 %; MONOCYTES,BODY FLUID 6 %; NEUTROPHILS,BODY FLUID 12 %
[2021-10-05 13:43] LABS: PH, BODY FLUID 8
[2021-10-05 14:11] LABS: BASOPHILS % (AUTO) 0.3 % (0.0-2.0); EOSINOPHILS % (AUTO) 2.4 % (1.0-6.0); HEMATOCRIT 38.3 % (41-53); HEMOGLOBIN 12.5 g/dL (13.5-17.5); LYMPHOCYTES # (AUTO) 0.9 K/uL (1.0-4.8); LYMPHOCYTES % (AUTO) 14.5 % (22.0-44.0); MEAN CORPUSCULAR HGB CONC 32.7 G/dL (31.0-37.0); MEAN CORPUSCULAR VOLUME 89 fL (80-100); MONOCYTES # (AUTO) 0.8 K/uL (0.1-1.0); MONOCYTES % (AUTO) 13.5 % (2.0-9.0); NEUTROPHILS # (AUTO) 4.1 K/uL (1.8-7.7); NEUTROPHILS % (AUTO) 69.3 % (40.0-70.0); PLATELET COUNT (AUTO) 273 K/uL (150-450); RED BLOOD CELL COUNT(AUTO) 4.31 MIL/uL (4.50-5.90); RED CELL DISTRIBUTION WIDTH 15.7 % (11.5-14.5)
[2021-10-05 15:39] LABS: ANION GAP 9 mmol/L (8-16); CALCIUM, TOTAL 8.7 mg/dL (8.8-10.5); CARBON DIOXIDE 30 mmol/L (22-29); CHLORIDE 99 mmol/L (98-107); CREATININE 1.09 mg/dL (0.60-1.30); GLUCOSE,RANDOM 91 mg/dL (70-110); POTASSIUM 4.5 mmol/L (3.5-5.1); SODIUM SERUM 138 mmol/L (136-145); UREA NITROGEN, BLOOD 16 mg/dL (7-18)
[2021-10-05 15:40] LABS: GLOMERULAR FILTR. RATE CALC > 60 mL/min (>60)
[2021-10-05 16:33] VITALS: BP 99/64
[2021-10-05] MEDS: ATORVASTATIN CALCIUM 40 MG TABLET PO SCH (20:13)
[2021-10-05 20:31] VITALS: BP 93/59
[2021-10-05] MEDS: CefTRIAXone 1 GM/DEXTROSE 50 ML IV SCH (23:21)
[2021-10-06 00:19] VITALS: BP 86/49
[2021-10-06 03:50] VITALS: BP 85/53
[2021-10-06] MEDS ORDERED: MIDODRINE HCL 5 MG TABLET PO ONE (04:00)
[2021-10-06 04:02] VITALS: BP 96/59
[2021-10-06 05:36] VITALS: BP 96/60
[2021-10-06 08:01] VITALS: BP 99/60
[2021-10-06] MEDS ORDERED: FUROSEMIDE 20 MG TABLET PO SCH (09:00)
[2021-10-06] MEDS: CARVEDILOL 3.125 MG TABLET PO SCH (09:00)
[2021-10-06] MEDS: SACUBITRIL/VALSARTAN 24-26 MG TABLET PO SCH (09:58)
[2021-10-06] MEDS: PANTOPRAZOLE SODIUM 40 MG DR TABLET PO SCH (09:59)
[2021-10-06] MEDS: HEPARIN SODIUM,PORCINE 5,000 UNITS/ML VIAL SQ SCH (09:59)
[2021-10-06] MEDS: ASPIRIN 81 MG CHEWABLE TABLET PO SCH (09:59)
[2021-10-06] MEDS: NICOTINE 7 MG/24 HOUR PATCH TD SCH (09:59)
[2021-10-06] MEDS: CHOLECALCIFEROL (VIT D3) 1,000 UNITS [25 MCG] TABLET PO SCH (09:59)
[2021-10-06] MEDS: MULTIVITAMINS, THERAPEUTIC TABLET PO SCH (09:59)
[2021-10-06] MEDS: LevETIRAcetam 250 MG TABLET PO SCH (09:59)
[2021-10-06 11:26] VITALS: BP 96/58
== END 2021-10-06 13:55 | disposition home or self-care (01) | DRG 291 ==
LOC: EMS 20:24 → 5S 10-02 00:40
PROVIDERS: ADMIT Internal Medicine; ATTEND Internal Medicine
PROC: 0W993ZZ Drainage of Right Pleural Cavity, Percutaneous Approach (ICD-10-PCS; principal; 2021-10-04)
DX: I11.0 Hypertensive heart disease with heart failure (principal); I50.23 Acute on chronic systolic (congestive) heart failure; E43 Unspecified severe protein-calorie malnutrition; F84.0 Autistic disorder; J44.0 Chronic obstructive pulmonary disease with (acute) lower respiratory infection; J91.8 Pleural effusion in other conditions classified elsewhere; I42.9 Cardiomyopathy, unspecified; F17.200 Nicotine dependence, unspecified, uncomplicated; G40.909 Epilepsy, unspecified, not intractable, without status epilepticus; I34.0 Nonrheumatic mitral (valve) insufficiency; I44.7 Left bundle-branch block, unspecified; Z96.659 Presence of unspecified artificial knee joint; G89.29 Other chronic pain; Z20.822 Contact with and (suspected) exposure to COVID-19; M54.9 Dorsalgia, unspecified; R91.1 Solitary pulmonary nodule; F41.9 Anxiety disorder, unspecified; Z82.49 Family history of ischemic heart disease and other diseases of the circulatory system; Z95.0 Presence of cardiac pacemaker; Z68.21 Body mass index [BMI] 21.0-21.9, adult; Z79.899 Other long term (current) drug therapy; Z79.82 Long term (current) use of aspirin; Z71.6 Tobacco abuse counseling
CPT/HCPCS: 32555; 71045; 71250; 72192; 74022; 74150; 76705; 76942; 80048; 80053; 81001; 82465; 82945; 83615; 83690; 83880; 83986; 84155; 84157; 84484; 85025; 85610; 87015; 87040; 87075; 87081; 87101; 87205; 87206; 87804; 89051; 93005; 99285; G0378; J0456; J0696; J1644; J1940; J2001; J2270; J2405; J7040; J7050; Q9967; 36415-L1; 36415-TC; 87070

== ENCOUNTER 2021-10-14 01:30 | Inpatient (IN) | payer MEDICARE, OTHER ==
[~2021-10-14] VITALS: Ht 172.7 cm; Wt 67.5 kg
[~2021-10-14 01:30] MED LIST changes: -ACET-784 PO; -LEVO750T68 PO; -SPIR-37 PO
[2021-10-14 02:08] LABS: BASOPHILS % (AUTO) 0.8 % (0.0-2.0); EOSINOPHILS % (AUTO) 3.2 % (1.0-6.0); HEMATOCRIT 36.5 % (41-53); HEMOGLOBIN 12.3 g/dL (13.5-17.5); LYMPHOCYTES # (AUTO) 1.1 K/uL (1.0-4.8); MEAN CORPUSCULAR HEMOGLOBIN 29.7 pg (26.0-34.0); MEAN CORPUSCULAR HGB CONC 33.6 G/dL (31.0-37.0); MEAN CORPUSCULAR VOLUME 88 fL (80-100); MONOCYTES # (AUTO) 0.5 K/uL (0.1-1.0); MONOCYTES % (AUTO) 12.7 % (2.0-9.0); NEUTROPHILS # (AUTO) 2.4 K/uL (1.8-7.7); NEUTROPHILS % (AUTO) 56.3 % (40.0-70.0); PLATELET COUNT (AUTO) 264 K/uL (150-450); RED BLOOD CELL COUNT(AUTO) 4.13 MIL/uL (4.50-5.90); RED CELL DISTRIBUTION WIDTH 16.1 % (11.5-14.5)
[2021-10-14 02:13] LABS: COVID AG,FIA SOURCE NASAL SWAB
[2021-10-14 02:16] LABS: ANION GAP 8 mmol/L (8-16); CALCIUM, TOTAL 9.3 mg/dL (8.8-10.5); CARBON DIOXIDE 26 mmol/L (22-29); CHLORIDE 103 mmol/L (98-107); CREATININE 0.99 mg/dL (0.60-1.30); GLOMERULAR FILTR. RATE CALC > 60 mL/min (>60); GLUCOSE,RANDOM 87 mg/dL (70-110); POTASSIUM 3.7 mmol/L (3.5-5.1); SODIUM SERUM 137 mmol/L (136-145); UREA NITROGEN, BLOOD 16 mg/dL (7-18)
[2021-10-14 02:21] LABS: INR 1.3 (0.9-1.1); PROTHROMBIN TIME 13.5 SEC (9.4-11.6)
[2021-10-14 02:22] LABS: ALANINE AMINOTRANSFERASE 21 U/L (12-78); ALBUMIN 3.5 g/dL (3.4-5.0); ALKALINE PHOSPHATASE 80 U/L (46-116); ASPARTATE AMINOTRANSFERASE 22 U/L (15-37); BILIRUBIN,TOTAL 0.8 mg/dL (0.1-1.0); TOTAL PROTEIN, SERUM 7.5 g/dL (6.4-8.2)
[2021-10-14 02:42] LABS: B-TYPE NATRIURETIC PEPTIDE 131 pg/mL (0-100)
[2021-10-14] MEDS ORDERED: CefTRIAXone 1 GM/DEXTROSE 50 ML IV ONE (03:00)
[2021-10-14] MEDS ORDERED: AZITHROMYCIN 500 MG/NS 250 ML IV ONE (03:00)
[2021-10-14 03:43] LABS: APPEARANCE,URINE CLEAR (CLEAR); BILIRUBIN,URINE NEGATIVE (NEGATIVE); GLUCOSE, URINE (UA) NEGATIVE (NEGATIVE); KETONES,URINE NEGATIVE (NEGATIVE); LEUKOCYTE ESTERASE ,URINE NEGATIVE (NEGATIVE); NITRATE,URINE NEGATIVE (NEGATIVE); OCCULT BLOOD,URINE NEGATIVE (NEGATIVE); PROTEIN,URINE NEGATIVE (NEGATIVE); SPECIFIC GRAVITIY, URINE 1.016 (1.003-1.030); UROBILINOGEN,URINE <=1.0 mg/dL (<=1.0)
[2021-10-14 03:48] LABS: AMPHET/METH SCREEN,URINE NEGATIVE (NEGATIVE); BARBITURATE SCREEN, URINE NEGATIVE (NEGATIVE); BENZODIAZEPINES SCREEN,URINE NEGATIVE (NEGATIVE); CANNABINOID SCREEN,URINE POSITIVE (NEGATIVE); COCAINE SCREEN,URINE NEGATIVE (NEGATIVE); METHADONE SCREEN, URINE NEGATIVE (NEGATIVE); OPIATE SCREEN,URINE NEGATIVE (NEGATIVE)
[2021-10-14 03:53] LABS: PHENCYCLIDINE SCREEN,URINE NEGATIVE (NEGATIVE)
[2021-10-14 04:48] VITALS: BP 105/51
[2021-10-14 07:45] VITALS: BP 138/60
[2021-10-14] MEDS ORDERED: ACETAMINOPHEN 325 MG TABLET PO PRN (07:45)
[2021-10-14] MEDS ORDERED: ALBUTEROL SULFATE 2.5 MG/0.5 ML NEB SOLUTION NEB PRN (07:45)
[2021-10-14] MEDS ORDERED: HEPARIN SODIUM,PORCINE 5,000 UNITS/ML VIAL SQ SCH (08:00)
[2021-10-14] MEDS ORDERED: FAMOTIDINE 20 MG TABLET PO SCH (09:00)
[2021-10-14] MEDS ORDERED: LISINOPRIL 5 MG TABLET PO SCH (09:00)
[2021-10-14] MEDS ORDERED: CARVEDILOL 6.25 MG TABLET PO SCH (09:00)
[2021-10-14] MEDS ORDERED: FUROSEMIDE 20 MG TABLET PO SCH (09:00)
[2021-10-14] MEDS ORDERED: DOCUSATE SODIUM 100 MG CAPSULE PO SCH (09:00)
[2021-10-15] MEDS ORDERED: CefTRIAXone 1 GM/DEXTROSE 50 ML IV SCH (03:00)
== END 2021-10-14 10:22 | disposition left against medical advice (07) | DRG 291 ==
LOC: EMS 01:32 → 6S 03:38
PROVIDERS: ADMIT Internal Medicine; ATTEND Internal Medicine
DX: I11.0 Hypertensive heart disease with heart failure (principal); I50.23 Acute on chronic systolic (congestive) heart failure; F84.0 Autistic disorder; J44.0 Chronic obstructive pulmonary disease with (acute) lower respiratory infection; R07.89 Other chest pain; Z20.822 Contact with and (suspected) exposure to COVID-19; D63.8 Anemia in other chronic diseases classified elsewhere; G40.909 Epilepsy, unspecified, not intractable, without status epilepticus; Z53.29 Procedure and treatment not carried out because of patient's decision for other reasons; Z96.659 Presence of unspecified artificial knee joint; F41.9 Anxiety disorder, unspecified; G89.29 Other chronic pain; M54.9 Dorsalgia, unspecified; Z79.899 Other long term (current) drug therapy; Z82.49 Family history of ischemic heart disease and other diseases of the circulatory system; Z87.891 Personal history of nicotine dependence; Z91.19 Patient's noncompliance with other medical treatment and regimen
CPT/HCPCS: 71045; 80053; 81003; 83880; 84484; 85025; 85610; 85730; 93005; 99285; J0456; J1644; 36415-L1; 36415-TC

== ENCOUNTER 2021-10-22 22:19 | Emergency (ER) | payer MEDICARE, OTHER ==
[~2021-10-22] VITALS: Ht 180.3 cm; Wt 63.6 kg
[2021-10-23] MEDS ORDERED: ACETAMINOPHEN 500 MG TABLET PO ONE (04:00)
[2021-10-23 05:18] VITALS: BP 102/74
== END 2021-10-23 09:00 | disposition home or self-care (01) ==
LOC: EMS 22:22
DX: S00.93XA Contusion of unspecified part of head, initial encounter (principal); F41.9 Anxiety disorder, unspecified; I11.0 Hypertensive heart disease with heart failure; I50.9 Heart failure, unspecified; G40.909 Epilepsy, unspecified, not intractable, without status epilepticus; F84.0 Autistic disorder; F17.210 Nicotine dependence, cigarettes, uncomplicated; F12.90 Cannabis use, unspecified, uncomplicated; Z86.79 Personal history of other diseases of the circulatory system; Z86.69 Personal history of other diseases of the nervous system and sense organs; Z87.39 Personal history of other diseases of the musculoskeletal system and connective tissue; Z96.89 Presence of other specified functional implants; Z96.659 Presence of unspecified artificial knee joint; Z98.890 Other specified postprocedural states; W05.0XXA Fall from non-moving wheelchair, initial encounter; Y93.89 Activity, other specified; Y92.89 Other specified places as the place of occurrence of the external cause; Y99.8 Other external cause status
CPT/HCPCS: 70450; 72125; 93005; 99284

== ENCOUNTER 2021-12-12 01:16 | Emergency (ER) | payer MEDICARE, OTHER ==
[~2021-12-12] VITALS: Ht 172.7 cm; Wt 73.6 kg
[2021-12-12] MEDS ORDERED: POTA-92 PO (01:44)
[2021-12-12] MEDS ORDERED: OLAN10TA74 PO (01:44)
[2021-12-12] MEDS ORDERED: ATOR40TA28 PO (01:44)
[2021-12-12] MEDS ORDERED: DIVA-112 PO (01:44)
[2021-12-12] MEDS ORDERED: CARV3 PO (01:44)
[2021-12-12] MEDS ORDERED: LEVE500T20 PO (01:44)
[2021-12-12 03:06] LABS: BASOPHILS % (AUTO) 0.8 % (0.0-2.0); EOSINOPHILS % (AUTO) 4.9 % (1.0-6.0); HEMOGLOBIN 12.2 g/dL (13.5-17.5); LYMPHOCYTES # (AUTO) 1.3 K/uL (1.0-4.8); LYMPHOCYTES % (AUTO) 37.3 % (22.0-44.0); MEAN CORPUSCULAR HGB CONC 33.8 G/dL (31.0-37.0); MEAN CORPUSCULAR VOLUME 89 fL (80-100); MONOCYTES # (AUTO) 0.7 K/uL (0.1-1.0); MONOCYTES % (AUTO) 19.1 % (2.0-9.0); NEUTROPHILS # (AUTO) 1.3 K/uL (1.8-7.7); NEUTROPHILS % (AUTO) 37.9 % (40.0-70.0); PLATELET COUNT (AUTO) 196 K/uL (150-450); RED BLOOD CELL COUNT(AUTO) 4.06 MIL/uL (4.50-5.90); RED CELL DISTRIBUTION WIDTH 16.5 % (11.5-14.5)
[2021-12-12 03:15] LABS: ANION GAP 1 mmol/L (8-16); CALCIUM, TOTAL 8.4 mg/dL (8.8-10.5); CARBON DIOXIDE 32 mmol/L (22-29); CHLORIDE 104 mmol/L (98-107); CREATININE 0.77 mg/dL (0.60-1.30); GLOMERULAR FILTR. RATE CALC > 60 mL/min (>60); GLUCOSE,RANDOM 90 mg/dL (70-110); POTASSIUM 4.4 mmol/L (3.5-5.1); SODIUM SERUM 137 mmol/L (136-145); UREA NITROGEN, BLOOD 16 mg/dL (7-18)
[2021-12-12 03:20] LABS: ALANINE AMINOTRANSFERASE 15 U/L (12-78); ALKALINE PHOSPHATASE 55 U/L (46-116); ASPARTATE AMINOTRANSFERASE 15 U/L (15-37); BILIRUBIN,TOTAL 0.2 mg/dL (0.1-1.0); TOTAL PROTEIN, SERUM 6.8 g/dL (6.4-8.2)
[2021-12-12] MEDS ORDERED: LIDOCAINE 1% 10 ML VIAL SQ ONE (03:30)
[2021-12-12] MEDS ORDERED: LIDOCAINE/PF 1% 5 ML VIAL SQ ONE (03:30)
[2021-12-12] MEDS ORDERED: CEPH-558 PO (04:22)
[2021-12-12 06:00] VITALS: BP 103/65
[2021-12-12] MEDS ORDERED: ASPI-1444 PO (20:02)
== END 2021-12-12 06:13 | disposition home or self-care (01) ==
LOC: EMS 01:22
DX: S01.81XA Laceration without foreign body of other part of head, initial encounter (principal); F41.9 Anxiety disorder, unspecified; I11.0 Hypertensive heart disease with heart failure; I50.9 Heart failure, unspecified; G40.909 Epilepsy, unspecified, not intractable, without status epilepticus; F84.0 Autistic disorder; F17.210 Nicotine dependence, cigarettes, uncomplicated; F12.90 Cannabis use, unspecified, uncomplicated; Z86.79 Personal history of other diseases of the circulatory system; Z86.69 Personal history of other diseases of the nervous system and sense organs; Z87.39 Personal history of other diseases of the musculoskeletal system and connective tissue; Z96.89 Presence of other specified functional implants; Z96.659 Presence of unspecified artificial knee joint; Z98.890 Other specified postprocedural states; W22.8XXA Striking against or struck by other objects, initial encounter; Y93.89 Activity, other specified; Y92.89 Other specified places as the place of occurrence of the external cause; Y99.8 Other external cause status
CPT/HCPCS: 99284; 70450; 80053; 85025; 36415; 12013; J2001

== ENCOUNTER 2022-01-11 21:51 | Inpatient (IN) | payer MEDICARE, OTHER ==
[~2022-01-11] VITALS: Ht 172.7 cm; Wt 73.7 kg
[~2022-01-11 21:51] MED LIST changes: +ASPI-1444 PO; -ASPI-1450 PO; +CEPH-558 PO; -CHOL25TA4 PO; +DIVA-112 PO; -GUAIFDM PO; -LEVE250T4 PO; +LEVE500T20 PO; +OLAN10TA74 PO; -PANT-31 PO; +POTA-92 PO
[2022-01-11 23:44] LABS: BASOPHILS % (AUTO) 1.2 % (0.0-2.0); EOSINOPHILS % (AUTO) 0.8 % (1.0-6.0); HEMATOCRIT 34.9 % (41-53); HEMOGLOBIN 11.6 g/dL (13.5-17.5); LYMPHOCYTES # (AUTO) 0.9 K/uL (1.0-4.8); LYMPHOCYTES % (AUTO) 18.4 % (22.0-44.0); MEAN CORPUSCULAR HEMOGLOBIN 29.5 pg (26.0-34.0); MEAN CORPUSCULAR HGB CONC 33.2 G/dL (31.0-37.0); MEAN CORPUSCULAR VOLUME 89 fL (80-100); MONOCYTES # (AUTO) 0.7 K/uL (0.1-1.0); MONOCYTES % (AUTO) 13.1 % (2.0-9.0); NEUTROPHILS # (AUTO) 3.4 K/uL (1.8-7.7); NEUTROPHILS % (AUTO) 66.5 % (40.0-70.0); PLATELET COUNT (AUTO) 203 K/uL (150-450); RED BLOOD CELL COUNT(AUTO) 3.93 MIL/uL (4.50-5.90)
[2022-01-11 23:50] LABS: COVID AG,FIA SOURCE NASOPHARYNGEAL
[2022-01-11 23:52] LABS: ANION GAP 3 mmol/L (8-16); CALCIUM, TOTAL 9.3 mg/dL (8.8-10.5); CARBON DIOXIDE 34 mmol/L (22-29); CHLORIDE 109 mmol/L (98-107); CREATININE 0.86 mg/dL (0.60-1.30); GLUCOSE,RANDOM 90 mg/dL (70-110); POTASSIUM 3.8 mmol/L (3.5-5.1); SODIUM SERUM 146 mmol/L (136-145); UREA NITROGEN, BLOOD 17 mg/dL (7-18)
[2022-01-11 23:54] LABS: GLOMERULAR FILTR. RATE CALC > 60 mL/min (>60)
[2022-01-12 00:02] LABS: B-TYPE NATRIURETIC PEPTIDE 357 pg/mL (0-100)
[2022-01-12 00:16] LABS: INR 1.3 (0.9-1.1); PROTHROMBIN TIME 13.7 SEC (9.4-11.6)
[2022-01-12 00:17] LABS: ALANINE AMINOTRANSFERASE 17 U/L (12-78); ALBUMIN 2.9 g/dL (3.4-5.0); ALKALINE PHOSPHATASE 55 U/L (46-116); ASPARTATE AMINOTRANSFERASE 22 U/L (15-37); BILIRUBIN,TOTAL 0.2 mg/dL (0.1-1.0); CREATINE KINASE, TOTAL ONLY 178 U/L (39-308); TOTAL PROTEIN, SERUM 7.2 g/dL (6.4-8.2)
[2022-01-12] MEDS ORDERED: ACETAMINOPHEN 500 MG TABLET PO ONE (01:00)
[2022-01-12] MEDS: PIPERACILLIN/TAZO 3.375 GM/D5W 50 ML IV SCH ×4 (01:46→21:48)
[2022-01-12] MEDS: DIVALPROEX SODIUM 500 MG DR TABLET PO SCH ×2 (08:57→20:18)
[2022-01-12] MEDS: SACUBITRIL/VALSARTAN 24-26 MG TABLET PO SCH ×2 (08:57→20:18)
[2022-01-12] MEDS: CEPHALEXIN MONOHYDRATE 500 MG CAPSULE PO SCH ×3 (08:58→20:19)
[2022-01-12] MEDS: LevETIRAcetam 500 MG TABLET PO SCH ×2 (08:58→20:19)
[2022-01-12] MEDS: POTASSIUM CHLORIDE 10 MEQ ER TABLET PO SCH (08:58)
[2022-01-12] MEDS: MULTIVITAMINS, THERAPEUTIC TABLET PO SCH (08:58)
[2022-01-12] MEDS: FUROSEMIDE 20 MG TABLET PO SCH (08:58)
[2022-01-12] MEDS: CARVEDILOL 3.125 MG TABLET PO SCH (08:58)
[2022-01-12] MEDS: ASPIRIN 81 MG DR TABLET PO SCH (09:05)
[2022-01-12 11:32] LABS: APPEARANCE,URINE CLEAR (CLEAR); BILIRUBIN,URINE NEGATIVE (NEGATIVE); GLUCOSE, URINE (UA) NEGATIVE (NEGATIVE); KETONES,URINE TRACE mg/dL (NEGATIVE); LEUKOCYTE ESTERASE ,URINE NEGATIVE (NEGATIVE); NITRATE,URINE NEGATIVE (NEGATIVE); OCCULT BLOOD,URINE MODERATE (NEGATIVE); PH,URINE 6.5 (5.0-8.0); PROTEIN,URINE TRACE mg/dL (NEGATIVE); SPECIFIC GRAVITIY, URINE 1.028 (1.003-1.030)
[2022-01-12 11:38] LABS: BACTERIA,URINE None Seen /HPF (None Seen); SQUAMOUS EPITHELIAL CELL,UR Few /LPF (None Seen); WBC,URINE 0-2 /HPF (0-5)
[2022-01-12 15:58] VITALS: BP 117/66
[2022-01-12] MEDS ORDERED: SODIUM CHLORIDE 0.9% 250 ML IV ONE (16:50)
[2022-01-12 20:01] VITALS: BP 106/60
[2022-01-12] MEDS: ATORVASTATIN CALCIUM 40 MG TABLET PO SCH (20:18)
[2022-01-12] MEDS: OLANZapine 10 MG TABLET PO SCH (20:18)
[2022-01-13] VITALS (7 sets, daily range): BP systolic 98–109; BP diastolic 52–62
[2022-01-13] MEDS: PIPERACILLIN/TAZO 3.375 GM/D5W 50 ML IV SCH ×4 (05:14→23:18)
[2022-01-13] MEDS: CARVEDILOL 3.125 MG TABLET PO SCH ×2 (09:00→09:21)
[2022-01-13] MEDS: SACUBITRIL/VALSARTAN 24-26 MG TABLET PO SCH ×3 (09:00→10:28)
[2022-01-13] MEDS: DIVALPROEX SODIUM 500 MG DR TABLET PO SCH ×2 (09:20→21:02)
[2022-01-13] MEDS: LevETIRAcetam 500 MG TABLET PO SCH ×2 (09:21→21:02)
[2022-01-13] MEDS: FUROSEMIDE 20 MG TABLET PO SCH (09:22)
[2022-01-13] MEDS: ASPIRIN 81 MG DR TABLET PO SCH (09:22)
[2022-01-13] MEDS: POTASSIUM CHLORIDE 10 MEQ ER TABLET PO SCH (09:23)
[2022-01-13] MEDS: MULTIVITAMINS, THERAPEUTIC TABLET PO SCH (09:23)
[2022-01-13] MEDS: CEPHALEXIN MONOHYDRATE 500 MG CAPSULE PO SCH ×3 (09:29→21:02)
[2022-01-13] MEDS ORDERED: ALBUTEROL SULFATE 2.5 MG/0.5 ML NEB SOLUTION NEB SCH (20:00)
[2022-01-13] MEDS ORDERED: ALBUTEROL SULFATE 2.5 MG/0.5 ML NEB SOLUTION NEB PRN (20:00)
[2022-01-13] MEDS: OLANZapine 10 MG TABLET PO SCH (21:02)
[2022-01-13] MEDS: ATORVASTATIN CALCIUM 40 MG TABLET PO SCH (21:02)
[2022-01-13] MEDS ORDERED: SODIUM CHLORIDE 0.9% 500 ML IV ONE (23:10)
[2022-01-14] MEDS: PIPERACILLIN/TAZO 3.375 GM/D5W 50 ML IV SCH ×4 (04:30→22:27)
[2022-01-14 04:38] VITALS: BP 125/59
[2022-01-14 08:27] VITALS: BP 121/76
[2022-01-14 08:30] VITALS: BP 155/87
[2022-01-14] MEDS: MULTIVITAMINS, THERAPEUTIC TABLET PO SCH (08:30)
[2022-01-14] MEDS: SACUBITRIL/VALSARTAN 24-26 MG TABLET PO SCH ×3 (08:30→21:00)
[2022-01-14] MEDS: LevETIRAcetam 500 MG TABLET PO SCH ×2 (08:31→20:18)
[2022-01-14] MEDS: POTASSIUM CHLORIDE 10 MEQ ER TABLET PO SCH (08:31)
[2022-01-14] MEDS: FUROSEMIDE 20 MG TABLET PO SCH (08:31)
[2022-01-14] MEDS: DIVALPROEX SODIUM 500 MG DR TABLET PO SCH ×2 (08:31→20:18)
[2022-01-14] MEDS: CEPHALEXIN MONOHYDRATE 500 MG CAPSULE PO SCH ×3 (08:31→20:20)
[2022-01-14] MEDS: ASPIRIN 81 MG DR TABLET PO SCH (08:31)
[2022-01-14] MEDS: CARVEDILOL 3.125 MG TABLET PO SCH (08:31)
[2022-01-14 08:59] LABS: ANION GAP 4 mmol/L (8-16); CALCIUM, TOTAL 9.1 mg/dL (8.8-10.5); CARBON DIOXIDE 33 mmol/L (22-29); CHLORIDE 108 mmol/L (98-107); CREATININE 0.72 mg/dL (0.60-1.30); GLUCOSE,RANDOM 74 mg/dL (70-110); POTASSIUM 4.4 mmol/L (3.5-5.1); SODIUM SERUM 145 mmol/L (136-145); UREA NITROGEN, BLOOD 8 mg/dL (7-18)
[2022-01-14 09:03] LABS: GLOMERULAR FILTR. RATE CALC > 60 mL/min (>60)
[2022-01-14 11:34] VITALS: BP 107/65
[2022-01-14 15:42] VITALS: BP 121/71
[2022-01-14 20:07] VITALS: BP 110/55
[2022-01-14] MEDS: ATORVASTATIN CALCIUM 40 MG TABLET PO SCH (20:18)
[2022-01-14] MEDS: OLANZapine 10 MG TABLET PO SCH (20:20)
[2022-01-14] MEDS ORDERED: ACETAMINOPHEN 650 MG/20.3 ML SOLUTION UDCUP PO PRN (21:00)
[2022-01-14] MEDS: ACETAMINOPHEN 325 MG TABLET PO PRN (22:29)
[2022-01-15 00:11] VITALS: BP 94/72
[2022-01-15] MEDS: PIPERACILLIN/TAZO 3.375 GM/D5W 50 ML IV SCH ×2 (04:38→09:49)
[2022-01-15 04:52] VITALS: BP 110/60
[2022-01-15 08:02] VITALS: BP 103/60
[2022-01-15] MEDS: ASPIRIN 81 MG DR TABLET PO SCH (08:21)
[2022-01-15] MEDS: SACUBITRIL/VALSARTAN 24-26 MG TABLET PO SCH (08:21)
[2022-01-15] MEDS: LevETIRAcetam 500 MG TABLET PO SCH (08:21)
[2022-01-15] MEDS: POTASSIUM CHLORIDE 10 MEQ ER TABLET PO SCH (08:21)
[2022-01-15] MEDS: ACETAMINOPHEN 325 MG TABLET PO PRN (08:21)
[2022-01-15] MEDS: FUROSEMIDE 20 MG TABLET PO SCH (08:21)
[2022-01-15] MEDS: DIVALPROEX SODIUM 500 MG DR TABLET PO SCH (08:21)
[2022-01-15] MEDS: CARVEDILOL 3.125 MG TABLET PO SCH (08:21)
[2022-01-15] MEDS: MULTIVITAMINS, THERAPEUTIC TABLET PO SCH (08:22)
[2022-01-15] MEDS: CEPHALEXIN MONOHYDRATE 500 MG CAPSULE PO SCH (08:25)
[2022-01-15 10:53] LABS: COVID AG,FIA SOURCE NASAL SWAB
[2022-01-15 11:24] VITALS: BP 105/55
== END 2022-01-15 15:37 | DRG 193 ==
LOC: EMS 21:51 → 5N 01-12 12:16
PROVIDERS: ADMIT Internal Medicine; ATTEND Internal Medicine
DX: J18.9 Pneumonia, unspecified organism (principal); G93.41 Metabolic encephalopathy; I50.23 Acute on chronic systolic (congestive) heart failure; E87.0 Hyperosmolality and hypernatremia; F84.0 Autistic disorder; I11.0 Hypertensive heart disease with heart failure; F20.9 Schizophrenia, unspecified; Z96.659 Presence of unspecified artificial knee joint; F41.9 Anxiety disorder, unspecified; G89.29 Other chronic pain; M54.9 Dorsalgia, unspecified; G40.909 Epilepsy, unspecified, not intractable, without status epilepticus; Z20.822 Contact with and (suspected) exposure to COVID-19; Z79.82 Long term (current) use of aspirin; Z82.49 Family history of ischemic heart disease and other diseases of the circulatory system; Z87.891 Personal history of nicotine dependence; Z91.19 Patient's noncompliance with other medical treatment and regimen; Z95.828 Presence of other vascular implants and grafts; Z79.899 Other long term (current) drug therapy
CPT/HCPCS: 71045; 80048; 80053; 81001; 82550; 83880; 84484; 85025; 85610; 85730; 87081; 93005; 97162; 99285; J2543; J7040; J7050; Q9967; 36415-L1; 36415-TC

== ENCOUNTER 2022-06-06 12:59 | Inpatient (IN) | payer MEDICARE, OTHER ==
[~2022-06-06] VITALS: Ht 177.8 cm; Wt 58.1 kg
[~2022-06-06 12:59] MED LIST changes: -ATOR40TA28 PO; +ATOR40TA71 PO; -CEPH-558 PO; +MAGN-169 PO; +PANT-31 PO
[2022-06-06 15:40] LABS: BASOPHILS % (AUTO) 1.3 % (0.0-2.0); HEMATOCRIT 44.1 % (41-53); HEMOGLOBIN 14.1 g/dL (13.5-17.5); LYMPHOCYTES # (AUTO) 0.9 K/uL (1.0-4.8); LYMPHOCYTES % (AUTO) 24.1 % (22.0-44.0); MEAN CORPUSCULAR HEMOGLOBIN 29.5 pg (26.0-34.0); MEAN CORPUSCULAR HGB CONC 32.1 G/dL (31.0-37.0); MEAN CORPUSCULAR VOLUME 92 fL (80-100); MONOCYTES # (AUTO) 0.5 K/uL (0.1-1.0); MONOCYTES % (AUTO) 12.3 % (2.0-9.0); NEUTROPHILS # (AUTO) 2.4 K/uL (1.8-7.7); NEUTROPHILS % (AUTO) 61.3 % (40.0-70.0); PLATELET COUNT (AUTO) 185 K/uL (150-450); RED CELL DISTRIBUTION WIDTH 17.2 % (11.5-14.5)
[2022-06-06 15:52] LABS: ANION GAP 11 mmol/L (8-16); CALCIUM, TOTAL 9.8 mg/dL (8.8-10.5); CARBON DIOXIDE 29 mmol/L (22-29); CHLORIDE 100 mmol/L (98-107); CREATININE 1.32 mg/dL (0.60-1.30); GLOMERULAR FILTR. RATE CALC > 60 mL/min (>60); GLUCOSE,RANDOM 120 mg/dL (70-110); POTASSIUM 4.2 mmol/L (3.5-5.1); SODIUM SERUM 140 mmol/L (136-145); UREA NITROGEN, BLOOD 39 mg/dL (7-18)
[2022-06-06 15:56] LABS: COVID AG,FIA SOURCE NASAL SWAB
[2022-06-06 15:59] LABS: ALANINE AMINOTRANSFERASE 15 U/L (12-78); ALBUMIN 3.2 g/dL (3.4-5.0); ALKALINE PHOSPHATASE 77 U/L (46-116); ASPARTATE AMINOTRANSFERASE 17 U/L (15-37); BILIRUBIN,TOTAL 0.6 mg/dL (0.1-1.0); CREATINE KINASE, TOTAL ONLY 35 U/L (39-308); TOTAL PROTEIN, SERUM 8.4 g/dL (6.4-8.2)
[2022-06-06] MEDS: FUROSEMIDE 20 MG/2 ML VIAL IVP ONE ×2 (16:27→16:31)
[2022-06-06 16:32] LABS: B-TYPE NATRIURETIC PEPTIDE 1820 pg/mL (0-100)
[2022-06-06 17:01] LABS: INFLUENZA TYPE A NEGATIVE FOR TYPE A (NEGATIVE); INFLUENZA TYPE B NEGATIVE FOR TYPE B (NEGATIVE)
[2022-06-06 17:09] LABS: INR 2.1 (0.9-1.1); PROTHROMBIN TIME 21.1 SEC (9.4-11.6)
[2022-06-06] MEDS ORDERED: ACETAMINOPHEN 325 MG TABLET PO PRN (20:30)
[2022-06-06] MEDS ORDERED: ONDANSETRON HCL 4 MG/2 ML VIAL IVP PRN (20:30)
[2022-06-06] MEDS: FUROSEMIDE 20 MG/2 ML VIAL IVP SCH (21:30)
[2022-06-06] MEDS: DOCUSATE SODIUM 100 MG CAPSULE PO SCH (21:31)
[2022-06-06] MEDS: ATORVASTATIN CALCIUM 20 MG TABLET PO SCH (21:31)
[2022-06-06 23:05] LABS: APPEARANCE,URINE CLEAR (CLEAR); BILIRUBIN,URINE NEGATIVE (NEGATIVE); GLUCOSE, URINE (UA) NEGATIVE (NEGATIVE); KETONES,URINE NEGATIVE (NEGATIVE); LEUKOCYTE ESTERASE ,URINE NEGATIVE (NEGATIVE); NITRATE,URINE NEGATIVE (NEGATIVE); OCCULT BLOOD,URINE NEGATIVE (NEGATIVE); PROTEIN,URINE TRACE mg/dL (NEGATIVE); SPECIFIC GRAVITIY, URINE 1.023 (1.003-1.030); UROBILINOGEN,URINE <=1.0 mg/dL (<=1.0)
[2022-06-06] MEDS: HEPARIN SODIUM,PORCINE 5,000 UNITS/ML VIAL SQ SCH (23:23)
[2022-06-07 03:30] VITALS: BP 93/57
[2022-06-07 07:56] VITALS: BP 101/64
[2022-06-07] MEDS: DOCUSATE SODIUM 100 MG CAPSULE PO SCH ×2 (08:12→21:33)
[2022-06-07] MEDS: FAMOTIDINE 20 MG TABLET PO SCH (08:12)
[2022-06-07] MEDS: ASPIRIN 81 MG CHEWABLE TABLET PO SCH (08:12)
[2022-06-07] MEDS: FUROSEMIDE 20 MG/2 ML VIAL IVP SCH ×2 (08:13→21:33)
[2022-06-07] MEDS: HEPARIN SODIUM,PORCINE 5,000 UNITS/ML VIAL SQ SCH ×3 (08:13→23:38)
[2022-06-07] MEDS ORDERED: PERFLUTREN PROTEIN-A MICROSPHERES 0.22 MG/ML 3 ML VIAL IVP ONE (09:45)
[2022-06-07 11:38] VITALS: BP 96/58
[2022-06-07 15:35] VITALS: BP 94/60
[2022-06-07 19:56] VITALS: BP 93/62
[2022-06-07] MEDS: ATORVASTATIN CALCIUM 20 MG TABLET PO SCH (21:33)
[2022-06-08 00:10] VITALS: BP 91/51
[2022-06-08 04:26] VITALS: BP 91/60
[2022-06-08 07:57] VITALS: BP 103/60
[2022-06-08] MEDS: FAMOTIDINE 20 MG TABLET PO SCH (08:45)
[2022-06-08] MEDS: FUROSEMIDE 20 MG/2 ML VIAL IVP SCH ×2 (08:45→20:27)
[2022-06-08] MEDS: ASPIRIN 81 MG CHEWABLE TABLET PO SCH (08:45)
[2022-06-08] MEDS: HEPARIN SODIUM,PORCINE 5,000 UNITS/ML VIAL SQ SCH ×3 (08:45→23:26)
[2022-06-08] MEDS: DOCUSATE SODIUM 100 MG CAPSULE PO SCH ×2 (08:45→20:26)
[2022-06-08 11:33] VITALS: BP 97/58
[2022-06-08 15:42] LABS: MAGNESIUM 2.4 mg/dL (1.80-2.40); PHOSPHORUS 4.5 mg/dL (2.5-4.9)
[2022-06-08 15:56] VITALS: BP 106/61
[2022-06-08] MEDS: NYSTATIN 500,000 UNITS/5 ML SUSPENSION UDCUP PO SCH ×3 (16:00→23:27)
[2022-06-08 19:40] VITALS: BP 97/61
[2022-06-08] MEDS: ATORVASTATIN CALCIUM 20 MG TABLET PO SCH (20:25)
[2022-06-09 00:19] VITALS: BP 96/65
[2022-06-09 06:05] VITALS: BP 95/65
[2022-06-09] MEDS: NYSTATIN 500,000 UNITS/5 ML SUSPENSION UDCUP PO SCH ×2 (08:29→16:00)
[2022-06-09] MEDS: DOCUSATE SODIUM 100 MG CAPSULE PO SCH ×2 (08:30→20:45)
[2022-06-09] MEDS: FAMOTIDINE 20 MG TABLET PO SCH (08:30)
[2022-06-09 08:34] VITALS: BP 118/82
[2022-06-09] MEDS: FUROSEMIDE 20 MG/2 ML VIAL IVP SCH ×2 (09:00→20:49)
[2022-06-09] MEDS: ASPIRIN 81 MG CHEWABLE TABLET PO SCH (09:00)
[2022-06-09 11:19] VITALS: BP 115/53
[2022-06-09 13:18] LABS: BASOPHILS % (AUTO) 0.7 % (0.0-2.0); EOSINOPHILS % (AUTO) 0 % (1.0-6.0); HEMATOCRIT 41.7 % (41-53); HEMOGLOBIN 13.2 g/dL (13.5-17.5); LYMPHOCYTES # (AUTO) 0.8 K/uL (1.0-4.8); LYMPHOCYTES % (AUTO) 13.1 % (22.0-44.0); MEAN CORPUSCULAR HEMOGLOBIN 29.2 pg (26.0-34.0); MEAN CORPUSCULAR HGB CONC 31.7 G/dL (31.0-37.0); MEAN CORPUSCULAR VOLUME 92 fL (80-100); MONOCYTES # (AUTO) 0.7 K/uL (0.1-1.0); MONOCYTES % (AUTO) 11.7 % (2.0-9.0); NEUTROPHILS # (AUTO) 4.3 K/uL (1.8-7.7); NEUTROPHILS % (AUTO) 74.5 % (40.0-70.0); PLATELET COUNT (AUTO) 169 K/uL (150-450); RED BLOOD CELL COUNT(AUTO) 4.51 MIL/uL (4.50-5.90); RED CELL DISTRIBUTION WIDTH 17.7 % (11.5-14.5)
[2022-06-09 13:26] LABS: INR 2.3 (0.9-1.1); PROTHROMBIN TIME 23.2 SEC (9.4-11.6)
[2022-06-09 13:27] LABS: CALCIUM, TOTAL 9.6 mg/dL (8.8-10.5); CREATININE 2.26 mg/dL (0.60-1.30); POTASSIUM 5.3 mmol/L (3.5-5.1)
[2022-06-09 14:12] LABS: APPEARANCE,URINE TURBID (CLEAR); BILIRUBIN,URINE NEGATIVE (NEGATIVE); GLUCOSE, URINE (UA) NEGATIVE (NEGATIVE); KETONES,URINE NEGATIVE (NEGATIVE); LEUKOCYTE ESTERASE ,URINE SMALL (NEGATIVE); NITRATE,URINE NEGATIVE (NEGATIVE); OCCULT BLOOD,URINE LARGE (NEGATIVE); PROTEIN,URINE 100-200,SEE CONFIRM mg/dL (NEGATIVE); SPECIFIC GRAVITIY, URINE 1.025 (1.003-1.030); UROBILINOGEN,URINE <=1.0 mg/dL (<=1.0)
[2022-06-09 14:33] LABS: RBC,URINE Full Field /HPF (0-2); SULFOSALICYLIC ACID,URINE 2+ (Negative)
[2022-06-09 14:34] LABS: BACTERIA,URINE Many /HPF (None Seen)
[2022-06-09 16:09] VITALS: BP 95/54
[2022-06-09 20:21] VITALS: BP 99/59
[2022-06-09] MEDS: ATORVASTATIN CALCIUM 20 MG TABLET PO SCH (20:45)
[2022-06-10] VITALS (7 sets, daily range): BP systolic 88–107; BP diastolic 49–79
[2022-06-10 06:29] LABS: CALCIUM, TOTAL 9.4 mg/dL (8.8-10.5); CREATININE 2.8 mg/dL (0.60-1.30); POTASSIUM 5.6 mmol/L (3.5-5.1)
[2022-06-10 06:32] LABS: INR 2.9 (0.9-1.1); PROTHROMBIN TIME 29.6 SEC (9.4-11.6)
[2022-06-10] MEDS: DOCUSATE SODIUM 100 MG CAPSULE PO SCH ×2 (09:00→20:23)
[2022-06-10] MEDS: ASPIRIN 81 MG CHEWABLE TABLET PO SCH (09:00)
[2022-06-10] MEDS: FUROSEMIDE 20 MG/2 ML VIAL IVP SCH (09:00)
[2022-06-10] MEDS: NYSTATIN 500,000 UNITS/5 ML SUSPENSION UDCUP PO SCH ×4 (09:38→23:51)
[2022-06-10] MEDS: FAMOTIDINE 20 MG TABLET PO SCH (09:43)
[2022-06-10] MEDS ORDERED: PHYTONADIONE 10 MG/1 ML AMP SQ ONE (12:00)
[2022-06-10] MEDS: ATORVASTATIN CALCIUM 20 MG TABLET PO SCH (20:23)
[2022-06-11] VITALS: BP 90/60
[2022-06-11] MEDS ORDERED: SODIUM CHLORIDE 0.9% 250 ML IV ONE ×2
[2022-06-11 04:37] VITALS: BP 95/70
[2022-06-11 06:54] LABS: INR 3.3 (0.9-1.1); PROTHROMBIN TIME 33.3 SEC (9.4-11.6)
[2022-06-11 07:41] VITALS: BP 100/60
[2022-06-11] MEDS: FAMOTIDINE 20 MG TABLET PO SCH (07:59)
[2022-06-11] MEDS: NYSTATIN 500,000 UNITS/5 ML SUSPENSION UDCUP PO SCH ×2 (07:59→16:00)
[2022-06-11] MEDS: DOCUSATE SODIUM 100 MG CAPSULE PO SCH ×2 (07:59→21:00)
[2022-06-11] MEDS ORDERED: PHYTONADIONE 10 MG/1 ML AMP SQ ONE (10:15)
[2022-06-11 10:33] LABS: CALCIUM, TOTAL 8.5 mg/dL (8.8-10.5); CREATININE 3.44 mg/dL (0.60-1.30); POTASSIUM 5.7 mmol/L (3.5-5.1)
[2022-06-11 11:54] VITALS: BP 120/65
[2022-06-11] MEDS ORDERED: BUMETANIDE 0.25 MG/ML 4 ML VIAL IVP SCH (12:00)
[2022-06-11] MEDS ORDERED: SODIUM ZIRCONIUM CYCLOSILICATE 5 GM POWDER PACKET PO SCH (14:45)
[2022-06-11 15:22] LABS: PROTEIN,URINE RANDOM 197 mg/dL (0-11.9); SODIUM,URINE RANDOM 23 mmol/l (20-110); UREA NITROGEN,URINE RANDOM 476 mg/dL (350-1000)
[2022-06-11] MEDS ORDERED: GABAPENTIN 100 MG CAPSULE PO ONE (15:30)
[2022-06-11 16:01] VITALS: BP 110/56
[2022-06-11 20:41] VITALS: BP 112/52
[2022-06-11] MEDS: ATORVASTATIN CALCIUM 20 MG TABLET PO SCH (21:00)
[2022-06-11] MEDS: GABAPENTIN 100 MG CAPSULE PO SCH (21:00)
[2022-06-12] MEDS: NYSTATIN 500,000 UNITS/5 ML SUSPENSION UDCUP PO SCH ×4 (00:16→22:56)
[2022-06-12 00:43] VITALS: BP 102/64
[2022-06-12 04:45] VITALS: BP 93/59
[2022-06-12 07:10] LABS: INR 2.9 (0.9-1.1)
[2022-06-12 07:14] LABS: CALCIUM, TOTAL 9.3 mg/dL (8.8-10.5); CREATININE 3.4 mg/dL (0.60-1.30)
[2022-06-12 07:18] LABS: MAGNESIUM 2.5 mg/dL (1.80-2.40); PHOSPHORUS 5.1 mg/dL (2.5-4.9); POTASSIUM 6.2 mmol/L (3.5-5.1)
[2022-06-12 07:31] LABS: BASOPHILS % (AUTO) 0.1 % (0.0-2.0); EOSINOPHILS % (AUTO) 0 % (1.0-6.0); HEMOGLOBIN 11.3 g/dL (13.5-17.5); LYMPHOCYTES # (AUTO) 0.6 K/uL (1.0-4.8); LYMPHOCYTES % (AUTO) 6.8 % (22.0-44.0); MEAN CORPUSCULAR HEMOGLOBIN 29.9 pg (26.0-34.0); MEAN CORPUSCULAR HGB CONC 33.1 G/dL (31.0-37.0); MEAN CORPUSCULAR VOLUME 90 fL (80-100); MONOCYTES # (AUTO) 1.1 K/uL (0.1-1.0); MONOCYTES % (AUTO) 12.2 % (2.0-9.0); NEUTROPHILS # (AUTO) 7.4 K/uL (1.8-7.7); NEUTROPHILS % (AUTO) 80.9 % (40.0-70.0); PLATELET COUNT (AUTO) 108 K/uL (150-450); RED BLOOD CELL COUNT(AUTO) 3.76 MIL/uL (4.50-5.90); RED CELL DISTRIBUTION WIDTH 17.1 % (11.5-14.5)
[2022-06-12 07:48] VITALS: BP 99/78
[2022-06-12] MEDS: DOCUSATE SODIUM 100 MG CAPSULE PO SCH ×2 (09:00→21:00)
[2022-06-12] MEDS: GABAPENTIN 100 MG CAPSULE PO SCH ×2 (09:00→22:51)
[2022-06-12] MEDS ORDERED: BUMETANIDE 0.25 MG/ML 4 ML VIAL IVP SCH (09:00)
[2022-06-12] MEDS: METOPROLOL SUCCINATE 25 MG ER TABLET PO SCH (09:00)
[2022-06-12] MEDS: FAMOTIDINE 20 MG TABLET PO SCH (09:00)
[2022-06-12] MEDS ORDERED: SODIUM POLYSTYRENE SULFONATE 15 GM/60 ML SUSPENSION BOTTLE PR ONE (11:00)
[2022-06-12 11:21] VITALS: BP 96/55
[2022-06-12] MEDS ORDERED: PHYTONADIONE 10 MG/1 ML AMP SQ ONE (12:15)
[2022-06-12] MEDS: SODIUM ZIRCONIUM CYCLOSILICATE 5 GM POWDER PACKET PO SCH ×2 (16:00→22:53)
[2022-06-12 20:12] VITALS: BP 112/72
[2022-06-12] MEDS: ATORVASTATIN CALCIUM 20 MG TABLET PO SCH (22:51)
[2022-06-12] MEDS: BUMETANIDE 1 MG TABLET PO SCH (22:51)
[2022-06-12 23:44] VITALS: BP 100/66
[2022-06-13 05:48] VITALS: BP 105/71
[2022-06-13 08:22] VITALS: BP 103/70
[2022-06-13] MEDS: SODIUM ZIRCONIUM CYCLOSILICATE 5 GM POWDER PACKET PO SCH ×3 (09:00→21:00)
[2022-06-13] MEDS: METOPROLOL SUCCINATE 25 MG ER TABLET PO SCH (09:00)
[2022-06-13] MEDS: FAMOTIDINE 20 MG TABLET PO SCH (09:00)
[2022-06-13] MEDS: DOCUSATE SODIUM 100 MG CAPSULE PO SCH ×2 (09:00→20:48)
[2022-06-13] MEDS: BUMETANIDE 1 MG TABLET PO SCH ×3 (09:00→21:00)
[2022-06-13] MEDS: GABAPENTIN 100 MG CAPSULE PO SCH ×3 (10:02→21:00)
[2022-06-13 11:17] VITALS: BP 133/72
[2022-06-13] MEDS ORDERED: MORPHINE SULFATE 2 MG/ML SYRINGE IVP PRN (11:30)
[2022-06-13 17:12] VITALS: BP 91/57
[2022-06-13 20:00] VITALS: BP 93/58
[2022-06-14 04:00] VITALS: BP 121/62
[2022-06-14] MEDS: DOCUSATE SODIUM 100 MG CAPSULE PO SCH (09:00)
[2022-06-14 09:34] VITALS: BP 93/56
[2022-06-14 14:12] VITALS: BP 0/0
== END 2022-06-14 17:59 | DRG 291 ==
LOC: EMS 13:04 → 5S 06-07 02:00 → 6N 06-13 21:40
PROVIDERS: ADMIT Internal Medicine; ATTEND Internal Medicine
DX: I13.0 Hypertensive heart and chronic kidney disease with heart failure and stage 1 through stage 4 chronic kidney disease, or unspecified chronic kidney disease (principal); E43 Unspecified severe protein-calorie malnutrition; G93.41 Metabolic encephalopathy; J96.01 Acute respiratory failure with hypoxia; I50.23 Acute on chronic systolic (congestive) heart failure; N17.9 Acute kidney failure, unspecified; J90 Pleural effusion, not elsewhere classified; D68.9 Coagulation defect, unspecified; F84.0 Autistic disorder; R64 Cachexia; Z68.1 Body mass index [BMI] 19.9 or less, adult; B37.0 Candidal stomatitis; I08.0 Rheumatic disorders of both mitral and aortic valves; E87.5 Hyperkalemia; I42.8 Other cardiomyopathies; K76.1 Chronic passive congestion of liver; N18.9 Chronic kidney disease, unspecified; Z95.810 Presence of automatic (implantable) cardiac defibrillator; E78.5 Hyperlipidemia, unspecified; G40.909 Epilepsy, unspecified, not intractable, without status epilepticus; I08.3 Combined rheumatic disorders of mitral, aortic and tricuspid valves; I25.10 Atherosclerotic heart disease of native coronary artery without angina pectoris; I50.84 End stage heart failure; R62.7 Adult failure to thrive; Z96.659 Presence of unspecified artificial knee joint; F41.9 Anxiety disorder, unspecified; G89.29 Other chronic pain; Z66 Do not resuscitate; Z51.5 Encounter for palliative care; Z79.899 Other long term (current) drug therapy; Z82.49 Family history of ischemic heart disease and other diseases of the circulatory system; Z86.73 Personal history of transient ischemic attack (TIA), and cerebral infarction without residual deficits; Z87.891 Personal history of nicotine dependence; Z91.81 History of falling
CPT/HCPCS: 36245; 36569; 71045; 71250; 76770; 76937; 80048; 80053; 81001; 81002; 81003; 82550; 82570; 83735; 83880; 84100; 84156; 84300; 84484; 84540; 85025; 85610; 85730; 87081; 87086; 87186; 87804; 92526; 92610; 93005; 97167; 97535; 99285; C8929; J1644; J1940; J2270; J2405; J3430; J3490; J7050; Q9967; 36415-L1; 36415-TC; C8928